=== PATIENT | female | born 1950 | race Caucasian/White ===

== ENCOUNTER 2016-10-13 09:52 | Outpatient (RCR) | payer MEDICARE, MEDICAID ==
[~2016-10-13 09:52] MED LIST: ACHD5005; AGM875T PO; ALBU17AE23 IH; ASP325TEC PO; ASPI-586 PO; ASPI-84; BENZ100C23 PO; BUDE10.2 IH; CALC-196 PO; CARV12.53 PO; CARV25TA PO; CETI10TA17 PO; CLD600T PO; CLOP75TA; CLOP75TA PO; CLOP75TA28 PO; CLOP75TA69 PO; COLE625T9 PO; CPR500T PO; CYCL10TA9 PO; DEXT1DRO7 OU; DIAZ2TAB2 PO; DOCU-143 PO; ENLP10T; FLUT16SP22; FLUT1AER IH; FURO20TA4; GABA-488 PO; GABA300T PO; GLPZ5TCR; GMFB600T; HCT25T PO; HYDR-2889 PO; HYDR-2997 PO; HYDR-34 PO; HYDR-3720; HYDR-3812 PO; INSU100I5; INSU100I5 SC; INSU100V5 SQ; LEGATRIN PM PO; METF-380 PO; METF1000 PO; METF500T8; METO-333; METR500T PO; MONT10TA21 PO; MTF500TCR; NAPR-243; NAPROXEN; NIA500ERT PO; OMG1KC PO; OXYC-12 PO; PRD20T PO; PREG50C; SERT100T8 PO; SIMV40TA2; TIOT18CA IH; TLT2T PO; UMEC62.5 IH; ZOLP10TA PO; welchol PO
[2016-10-13 10:12] LABS: BASOPHILS % (AUTO) 0 % (0-10); EOSINOPHILS # (AUTO) 0.2 10^3/uL (0.0-0.3); EOSINOPHILS % (AUTO) 2 % (0-10); LYMPHOCYTES # (AUTO) 1.5 X 10^3 (1.0-4.0); LYMPHOCYTES % (AUTO) 20 % (12-44); MEAN CORPUSCULAR HEMOGLOBIN 27 PG (25-34); MEAN CORPUSCULAR HGB CONC 31 G/DL (32-36); MEAN CORPUSCULAR VOLUME 86 FL (80-99); MEAN PLATELET VOLUME 9.3 FL (7.4-10.4); MONOCYTES # (AUTO) 0.7 X 10^3 (0.0-1.0); MONOCYTES % (AUTO) 10 % (0-12); NEUTROPHILS # (AUTO) 4.9 X 10^3 (1.8-7.8); NEUTROPHILS % (AUTO) 68 % (42-75); PLATELET COUNT 269 10^3/uL (130-400); RED BLOOD COUNT 3.82 10^6/uL (4.35-5.85); WHITE BLOOD COUNT 7.2 10^3/uL (4.3-11.0)
[2016-10-13 10:58] LABS: ALBUMIN 3.9 G/DL (3.2-4.5); BILIRUBIN,TOTAL 0.4 MG/DL (0.1-1.0); CALCIUM 9.5 MG/DL (8.5-10.1); CREATININE SERUM 1.13 MG/DL (0.60-1.30); POTASSIUM 4.8 MMOL/L (3.6-5.0); TOTAL PROTEIN 6.6 G/DL (6.4-8.2)
[2017-01-22] MEDS ORDERED: HYDR-3730 PO (14:14)
== END 2016-11-13 | disposition home or self-care (01) ==
LOC: ONC 09:52
PROVIDERS: ATTEND Internal Medicine Hematology & Oncology
DX: C50.111 Malignant neoplasm of central portion of right female breast (principal); J44.9 Chronic obstructive pulmonary disease, unspecified; I25.10 Atherosclerotic heart disease of native coronary artery without angina pectoris; I10 Essential (primary) hypertension; E11.9 Type 2 diabetes mellitus without complications; M17.0 Bilateral primary osteoarthritis of knee; Z87.891 Personal history of nicotine dependence; Z79.02 Long term (current) use of antithrombotics/antiplatelets; Z79.82 Long term (current) use of aspirin
CPT/HCPCS: 36415; 80053; 85025; 99213

== ENCOUNTER → 2016-11-11 | Outpatient (CLI) | payer MEDICARE, MEDICAID ==
[~2016-11-11] MED LIST changes: +ALBU0.63 IH; +ANAS1TAB7 PO; +AZIT250T5 PO; +CEFD300C3 PO; +HYDR-3730 PO; +ONDA4TAB8 PO
--- OUTSIDE RECORDS SUMMARY | 2016-11-11 08:03 | XMS REPORT | Continuity of Care Document ---
Author Author [facility] Organization [facility] Address Unknown Phone Unavailable Care Team Providers Care Ed Special Education Teacher Name Role Phone Provider, Ordering PCP Unavailable Source Comments Some departments are not documenting in the electronic medical record. If you do not see the information that you expected, contact Release of Information in the Health Information Management department at [phone] for further assistance in locating additional records.[facility] Active Allergies and Adverse Reactions Allergen Noted Date Severity Reactions Comments Iodine 09/02/2016 Medium SHORTNESS OF BREATH Pcn 09/02/2016 Medium EDEMA Current Medications Prescription Sig. Disp. Refills Start End Date Status Date [place]-3 Fatty Take 1 Cap by mouth twice Active Acids-Vitamin E (FISH daily. OIL) 1,000 mg cap metFORMIN (GLUCOPHAGE) Take 1,000 mg by mouth Active 1,000 mg tablet twice daily with meals. GABAPENTIN PO Take 600 mg by mouth Active three times daily. colesevelam(+) (WELCHOL) Take 1,875 mg by mouth Active 625 mg tablet twice daily. insulin detemir(+) Inject 20 Units under the Active (LEVEMIR) 100 unit/mL skin at bedtime daily. soln aspirin 81 mg chewable Chew 81 mg by mouth Active tablet daily. Take with food. anastrozole (ARIMIDEX) 1 Take 1 mg by mouth daily. Active mg tablet montelukast (SINGULAIR) Take 10 mg by mouth at Active 10 mg tablet bedtime daily. clopiDOGrel (PLAVIX) 75 Take 75 mg by mouth Active mg tablet daily. carvedilol (COREG) 12.5 Take 12.5 mg by mouth Active mg tablet twice daily. Take with food. hydroCHLOROthiazide Take 25 mg by mouth Active (HYDRODIURIL) 25 mg daily. tablet sertraline (ZOLOFT) 100 Take 100 mg by mouth Active mg tablet daily. benzonatate (TESSALON Take 100 mg by mouth Active PERLES) 100 mg capsule every 8 hours as needed for Cough. HYDROcodone/acetaminophen Take 1 Tab by mouth every Active (NORCO) 5-325 mg tablet 4 hours as needed for Pain tolterodine(+) (DETROL) 2 Take 2 mg by mouth twice Active mg tablet daily. fluticasone (FLONASE) 50 Apply to each nostril as Active mcg/actuation nasal spray directed daily as needed. Shake bottle gently before using. diazePAM (VALIUM) 2 mg Take 2 mg by mouth at Active tablet bedtime as needed for Anxiety. fluticasone-vilanterol Inhale 1 Puff by mouth Active 100-25 mcg/dose dsdv into the lungs daily. albuterol 0.083% Inhale 1 Vial solution by Active (PROVENTIL; VENTOLIN) 2.5 nebulizer as directed mg /3 mL (0.083 %) every 4 hours as needed nebulizer solution for Wheezing or Shortness of Breath. lisinopril (PRINIVIL; Take 10 mg by mouth Active ZESTRIL) 10 mg tablet daily. Active Problems Problem Noted Date Renal mass 09/01/2016 Overview: -- 09/02/16: ADMISSIONS SUPERVISOR visit. Very complex medical hx w/ new diagnosis of breast cancer. RENAL nephrotomy score 8a (moderate complexity). Will schedule for percutaneous bx. Imaging Hx as follows: -- 07/30/16: 2.5 x 2.6 x 2.1 cm solid enhancing mass in the left kidney, which is highly concerning for primary renal neoplasm -- 08/14/16: 2.8 cm hypervascular left renal mass highly suggestive of renal cell carcinoma. Indeterminate 1.5 cm left adrenal nodule L ast Assessment & Plan: The patient has a LEFT renal mass suspicious for renal cancer. I reviewed the options of observation, partial nephrectomy, radical nephrectomy, cryoablation, radiofrequency ablation in detail. I explained the relative merits, advantages, and disadvantages of each option. The patient would like to proceed with renal bx. - Will follow up w/ pt following IR bx to review options Most Recent Encounters Date Type Specialty Providers Description 10/22/2016 Orders Only Urology Ez Farley MD Renal cell cancer, left (HCC) (Primary Dx) 10/22/2016 Orders Only Urology Ez Farley MD 10/22/2016 Orders Only Urology Raina Muro MD Kidney cancer, primary, with metastasis from kidney to other site, unspecified laterality (HCC) (Primary Dx) 09/25/2016 [facility] Radiology Ez Farley MD Encounter Yue Glover RN Lemons, Steven, MD 09/25/2016 Ancillary Urology Ez Farley MD Renal mass (Primary Dx) Orders 09/10/2016 Orders Only Radiology Juana Batista RN Renal mass (Primary Dx) 09/10/2016 Orders Only Radiology Juana Batista RN 09/02/2016 Office Visit Urology Ez Farley MD Renal mass (Primary Dx) 09/01/2016 Ancillary Radiology Outpatient, Radiologist Diagnosis unknown Orders (Primary Dx) 08/26/2016 Telephone Oncology Ez Farley MD Error 08/25/2016 Telephone Oncology Ez Farley MD Navigation Assessment 08/14/2016 Hospital Radiology Encounter Social History Tobacco Use Types Packs/Day Years Used Date Former Smoker Smokeless Tobacco: Never Used Alcohol Use Drinks/Week oz/Week Comments No Last Filed Vital Signs Vital Sign Reading Time Taken Blood Pressure 141/95 09/25/2016 2:15 PM GAS ANALYST Pulse 74 09/25/2016 2:15 PM GAS ANALYST Temperature 36.7 C (98.1 F) 09/25/2016 8:37 AM GAS ANALYST Respiratory Rate 16 09/02/2016 9:31 AM CDT Height 1.524 m (5') 09/02/2016 9:31 AM CDT Weight 99.156 kg (218 lb 9.6 oz) 09/02/2016 9:31 AM CDT Body Mass Index 42.69 09/02/2016 9:31 AM CDT Oxygen Saturation 94% 09/25/2016 2:15 PM GAS ANALYST Plan of Care Date Type Specialty Providers Description 11/18/2016 Appointment Radiology Ez Farley MD [address] [facility] [place] [address] [place] [address] [phone] (Fax) 11/18/2016 Appointment Urology Ez Farley MD [address] [facility] [place] [address] [place] [address] [phone] (Fax) 11/18/2016 Appointment Anesthesiology Health Maintenance Due Date Last Done Comments Hepatitis C Screening 1950 Physical (Comprehensive) 1955 Exam Pertussis Vaccine 1959 Tetanus Vaccine 1965 Breast Cancer Screening 1988 Colorectal Cancer 1998 Screening Shingles Vaccine 2008 Osteoporosis Screening 2013 Prevnar/Pneumovax (#1) 2013 Influenza Vaccine 07/10/2016 Results from Last 3 Months SURGICAL PATHOLOGY (09/25/2016 10:47 AM) Component Value Range PATHOLOGY REPORT [facility] [email or web address] Brisa Mckeon MD, PhD, Director of Anatomic Pathology Department of Pathology and Laboratory Medicine [address] [place] [id number] Surgical Pathology Office: [phone] SURGICAL PATHOLOGY REPORT NAME: MURIEL SALGADO SURG PATH #: [id number] MR #: [id number] SPECIMEN CLASS: SR BILLING #: [id number] ALT ID #: LOCATION: DATE OF PROCEDURE: 09/25/2016 AGE: 65 SEX: F DATE RECEIVED: 09/25/2016 : 1950 TIME RECEIVED: 10:47 PHYSICIAN: EZ FARLEY DATE OF REPORT: 09/26/2016 COPY TO: DATE OF PRINTIN09/26/2016 ################################################## ###################### Final Diagnosis: A. 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 See comment. Comment: Pursuant to the Internal Combustion Engine Subassembler Program at the [facility] Pathology Department, selected slides from this case have been concurrently reviewed by the following pathologist: Dr. Yi Ochoa who agrees with the final diagnosis. Attestation: By this signature, I attest that I have personally formulated the final interpretation expressed in this report and that the above diagnosis is based upon my examination of the slides and/or other material indicated in this report. +++Electronically Signed Out By+++ [facility]09/25/2016 Interpreted by: Suzette Lu M.D. Melchor Sauer MD Resident 09/26/2016 ################################################## ###################### Material Received: A: Kidney Mass no protocol History: 65-year-old female with a clinical history of renal mass Gross Description: A. Received in formalin labeled "left kidney mass" is a 1.3 x 0.2 x 0.1 cm aggregate of cores of castellanos-red tissue. The specimen is entirely submitted in cassette A1. (jrz) [facility]09/25/2016 Melchor Sauer MD Resident CT GUIDE NEEDLE PLACEMENT (09/25/2016 10:22 AM) Impressions 1. Successful CT-guided biopsy of left renal lesion. Approved by Homero Branch M.D. on 09/25/2016 1:52 PM By my electronic signature, I attest that I have personally reviewed the images for this examination and formulated the interpretations and opinions expressed in this report Finalized by Artie Horton M.D. on 09/25/2016 6:34 PM. Dictated by Homero Branch M.D. on 09/25/2016 1:[address] GUIDED BIOPSY OF LEFT RENAL LESION CLINICAL HISTORY:Newly diagnosed breast cancer, left renal lesion seen on CT CNA INSTRUCTOR:Homero Branch M.D. (fellow) and Shahzad Horton M.D. MEDICATIONS:2% lidocaine: 5 mL;Versed: 2 mg IV; Fentanyl: 100 mcg IV TECHNIQUE/FINDINGS: I, Shahzad Horton M.D, the attending radiologist, was present for the critica l and muñoz portions of the procedure with a midlevel, resident, and/or fellow participating.Overlapping portions were non muñoz and I was immediately available.I interpret the critical and muñoz portion of this procedure to have been needle access. A brief history and physical was obtained and appropriate imaging was reviewed. The patient was provided an explanation of the procedure including risks and benefits. Informed written consent was then obtained. The patient was placed in prone position on the CT table. Limited scans through the abdomen were done to identify the left renal lesion. The patient's skin was marked with ink at the appropriate entry site. The entry site was then prepped and draped in the usual sterile fashion. Lidocaine was then injected in the subcutaneous tissues at this site. Position of the lesion was confirmed by CT measurements. A 10 cm 17 gauge Temno introducer needle was then advanced into the left renal lesion and placement was confirmed by CT. 3 separate core biopsies were then obtained using an 18-gauge Temno needle and submitted in formalin for surgical pathology. A small amount of gelfoam slurry was injected for hemostasis prior to removal of the introducer needle.Limited post procedure CT scan demonstrates no evidence of post biopsy complication.The patient tolerated the procedure well and left the department in stable condition. Procedure Note Interface, Radiant Results - [facility] Sep 25, 2016 6:[address] GUIDED BIOPSY OF LEFT RENAL LESION CLINICAL HISTORY: Newly diagnosed breast cancer, left renal lesion seen on CT CNA INSTRUCTOR: Homero Branch M.D. (fellow) and Shahzad Horton M.D. MEDICATIONS: 2% lidocaine: 5 mL; Versed: 2 mg IV; Fentanyl: 100 mcg IV TECHNIQUE/FINDINGS: IShahzad M.D, the attending radiologist, was present for the critical and muñoz portions of the procedure with a midlevel, resident, and/or fellow participating. Overlapping portions were non muñoz and I was immediately available. I interpret the critical and muñoz portion of this procedure to have been needle access. A brief history and physical was obtained and appropriate imaging was reviewed. The patient was provided an explanation of the procedure including risks and benefits. Informed written consent was then obtained. The patient was placed in prone position on the CT table. Limited scans through the abdomen were done to identify the left renal lesion. The patient's skin was marked with ink at the appropriate entry site. The entry site was then prepped and draped in the usual sterile fashion. Lidocaine was then injected in the subcutaneous tissues at this site. Position of the lesion was confirmed by CT measurements. A 10 cm 17 gauge Temno introducer needle was then advanced into the left renal lesion and placement was confirmed by CT. 3 separate core biopsies were then obtained using an 18-gauge Temno needle and submitted in formalin for surgical pathology. A small amount of gelfoam slurry was injected for hemostasis prior to removal of the introducer needle. Limited post procedure CT scan demonstrates no evidence of post biopsy complication. The patient tolerated the procedure well and left the department in stable condition. IMPRESSION 1. Successful CT-guided biopsy of left renal lesion. Approved by Homero Branch M.D. on 09/25/2016 1:52 PM By my electronic signature, I attest that I have personally reviewed the images for this examination and formulated the interpretations and opinions expressed in this report Finalized by Artie Horton M.D. on 09/25/2016 6:34 PM. Dictated by Homero Branch M.D. on 09/25/2016 1:50 PM. POC GLUCOSE (09/25/2016 8:40 AM) Component Value Range Glucose, POC 95 70-100 MG/DL CT ABD/PEL EXTERNAL IMAGING (08/14/2016) Narrative This order has been auto finalized and does not contain a result.
--- NOTE | 2016-11-11 13:28 | Diagnostic Imaging Report ---
Right breast diagnostic mammogram. INDICATION: Breast cancer. CAD is utilized. COMPARISON: 07/08/2016. FINDINGS: There is a central right breast nodule, a biopsy-proven breast cancer which appears to be slightly smaller on the current exam. Some of the borders are obscured by the adjacent tissues, and ultrasound might be more accurate in measurement of this nodule. It is at 1.3 cm in maximum dimension anterior/ posteriorly, 0.8 cm in transverse dimension, and is poorly defined on the craniocaudal extent. This compares to 1.4 x 1.0-cm at previous study. There is a biopsy clip about 1 cm lateral to the nodule. IMPRESSION: Biopsy-proven breast cancer in the central slightly lateral aspect of the right breast appears minimally smaller compared to 07/08/2016. Ultrasound evaluation is pending. ACR BI-RADS Category 0: Incomplete. (Needs additional imaging evaluation). Result letter will be mailed to the patient. Note: At least 10% of breast cancer is not imaged by mammography. Dictated by: Dictated on workstation # [id number]
--- NOTE | 2016-11-11 13:31 | Diagnostic Imaging Report ---
EXAMINATION: Right breast ultrasound. INDICATION: Right breast cancer. FINDINGS: The previously seen mass at 10 o'clock 6 cm from the nipple is now difficult to delineate. A corresponding area, felt to be the nodule, measures 0.9 x 0.5 x 0.8 cm. This compares to prior measurements of 1.3 x 0.6 x 0.8 cm. No other nodule is identified in the 4 quadrants or retroareolar region. IMPRESSION: The previously seen nodule is harder to delineate on this exam with slightly smaller measurements obtained. BI-RADS 6, known breast cancer. Dictated by: Dictated on workstation # [id number]
== END ==
LOC: RAD 08:00
PROVIDERS: ATTEND Internal Medicine Hematology & Oncology
DX: C50.111 Malignant neoplasm of central portion of right female breast (principal)
CPT/HCPCS: 76641

== ENCOUNTER → 2016-12-15 | Outpatient (CLI) | payer MEDICARE, MEDICAID ==
--- OUTSIDE RECORDS SUMMARY | 2016-12-15 12:12 | XMS REPORT | Continuity of Care Document ---
Author Author [facility] Address Unknown Phone Unavailable Care Team Providers Care Medical Assistant Name Role Phone MilnerDayna saravia PCP [phone] Source Comments Some departments are not documenting in the electronic medical record. If you do not see the information that you expected, contact Release of Information in the Health Information Management department at [phone] for further assistance in locating additional records.[facility] Active Allergies and Adverse Reactions Allergen Noted Date Severity Reactions Comments Iodine 09/02/2016 Medium SHORTNESS OF BREATH Pcn 09/02/2016 Medium EDEMA Current Medications Prescription Sig. Disp. Refills Start End Date Status Date [place]-3 Fatty Take 1 Cap by mouth twice [...] mouth Active ZESTRIL) 10 mg tablet daily. oxyCODONE (ROXICODONE, Take 1-2 Tabs by mouth 30 Tab 0 12/09/19 Active OXY-IR) 5 mg tablet every 4 hours as needed 17 for Pain ondansetron (ZOFRAN) 4 mg Take 1-2 Tabs by mouth 20 Tab 1 12/09/19 Active tablet every 6 hours as needed 17 for Nausea or Vomiting. Active Problems Problem Noted Date Renal mass 09/01/2016 Overview: -- 09/02/16: [employer] visit. Very complex medical hx w/ new [...] carcinoma. Indeterminate 1.5 cm left adrenal nodule Pt was scheduled for IR cryoablation but due to misunderstanding this did not occur. PATIENCE shows mass is unchanged L ast Assessment & Plan: I reviewed the options and she would like to continue with cryoablation. We will coordinate with IR. Most Recent Encounters Date Type Specialty Providers Description 12/09/2016 [facility] Radiology Ez Fernandez MD Renal mass Encounter Bertin Curry RN Collins, Zachary S, MD 12/09/2016 [facility] Ez Fernandez MD Other specified disorders Encounter of kidney and ureter 12/09/2016 Ancillary Urology Ez Fernandez MD Renal cell cancer, left Orders (Primary Dx) 12/05/2016 Telephone Radiology Basia Mcgee RN 11/18/2016 Office Visit Urology Ez Fernandez MD Renal mass (Primary Dx) 11/18/2016 [facility] Radiology Ez Fernandez MD Encounter 11/18/2016 [facility] Radiology Ez Fernandez MD Canceled (Error) Encounter 11/18/2016 Telephone Radiology Basia Mcgee RN 11/18/2016 Orders Only UrologEz Gary MD Renal mass (Primary Dx ) 10/22/2016 Orders Only Urology Ez Fernandez MD Renal cell cancer, left (HCC) (Primary Dx) 10/22/2016 Orders Only Urology Ez Fernandez MD 10/22/2016 Orders Only Urology Raina Muro MD Kidney cancer, primary, with metastasis from kidney to other site, unspecified laterality (HCC) (Primary Dx) 09/25/2016 [facility] Radiology Ez Fernandez MD Encounter Yue Glover RN Lemons, Steven, MD 09/25/2016 Ancillary Urology Ez Fernandez MD Renal mass (Primary Dx) Orders Social History Tobacco Use Types Packs/Day Years Used Date Former Smoker Smokeless Tobacco: Never Used Alcohol Use Drinks/Week oz/Week Comments No Last Filed Vital Signs Vital Sign Reading Time Taken Blood Pressure 146/58 12/09/2016 1:45 PM [employer] Pulse 74 12/09/2016 1:45 PM [employer]BER Temperature 36.9 C (98.4 F) 12/09/2016 9:08 AM [employer] MEMBER Respiratory Rate 16 09/02/2016 9:31 AM CDT Height 1.524 m (5') 11/18/2016 12:00 PM [employer]BER Weight 102.604 kg (226 lb 3.2 11/18/2016 12:00 PM [employer] TEAM MEMBER oz) Body Mass Index 44.18 11/18/2016 12:00 PM [employer]BER Oxygen Saturation 96% 12/09/2016 1:45 PM [employer]AM MEMBER Plan of Care Health Maintenance Due Date Last Done Comments Hepatitis C Screening 1950 Physical (Comprehensive) 1955 Exam Pertussis Vaccine 1959 Tetanus Vaccine 1965 Breast Cancer Screening 1988 Colorectal Cancer 1998 Screening Shingles Vaccine 2008 Osteoporosis Screening 2013 Prevnar/Pneumovax (#1) 2013 Influenza Vaccine 07/10/2016 Results from Last [address] GUIDE FOR RF ABLATION PERC (12/09/2016 12:24 PM) Impressions Technically successful Cryoablation of the left renal tumor as described above. Plan: Follow up cross-sectional imaging will be performed at 1 month, 3 months, 6 months, and 1 year for evaluation of treatment response and local control. I, Mukund Meraz M.D, the attending radiologist, was present for the critical and muñoz portions of the procedure with a midlevel, resident, and/or fellow participating.Overlapping portions were non muñoz and I was immediately available.I interpret the critical and muñoz portion of this procedure to have been needle access. @TT Approved by Sara Lacey M.D. on 12/10/2016 9:50 AM By my electronic signature, I attest that I have personally reviewed the images for this examination and formulated the interpretations and opinions expressed in this report Finalized by Mukund Meraz M.D. on 12/10/2016 10:24 AM. Dictated by Sara Lacey M.D. on 12/10/2016 9:45 AM. Narrative PROCEDURE: CRYOABLATION OF SOLITARY LEFT RENAL TUMOR Procedure date: 12/09/2016 History: Renal cell cancer of left kidney Operators: Sara Lacey MD; Mukund Meraz MD Medications: Versed 3 mg IV Fentanyl 150 mcg IV Procedure and Findings: The risks, benefits, and alternatives to the procedure and sedation were explained to the patient, and written informed consent obtained. The lesion in the left kidney was localized on the initial non- contrast CT and the dermatotomy entrance site marked on the skin. Utilizing usual sterile technique, the site was prepped and draped. A subcutaneous needle was positioned over the site of the lesion in the left kidney and the positioning was confirmed using CT. Following cryoablation needle testing, a single 15 cm long, cryoablation needle with 5 cm treatment zone, were placed into the lesion and optimally positioned under CT guidance.The needle placements were confirmed under CT and two 10 minute cryotherapy freezes were performed interspace by a 5 minutes of active thaw. A mid therapy CT of the treatment area was performed toconfirm initial needle placement and satisfactory treatment zone.Recorded temperature measurements were deemed technically satisfactory and consistent with successful cryoablation.The cryotherapy needles were removed after the measured temperature was above [address] demonstrated low attenuation changes completely surrounding the renal tumor, with at least a 5 mm excess treatment margin involving the superior, lateral and medial aspects of the lesion. These findings are compatible with technically successful cryoablation. There is no evidence of post procedure complication was noted. The patient left the department in stable condition. Procedure Note Interface, Radiant Results - ThuDec 10, 2016 1:57 PM [employer] MEMBER PROCEDURE: CRYOABLATION OF SOLITARY LEFT RENAL TUMOR Procedure date: 12/09/2016 History: Renal cell cancer of left kidney Operators: Sara Lacey MD; Mukund Meraz MD Medications: Versed 3 mg IV Fentanyl 150 mcg IV Procedure and Findings: The risks, benefits, and alternatives to the procedure and sedation were explained to the patient, and written informed consent obtained. The lesion in the left kidney was localized on the initial non- contrast CT and the dermatotomy entrance site marked on the skin. Utilizing usual sterile technique, the site was prepped and draped. A subcutaneous needle was positioned over the site of the lesion in the left kidney and the positioning was confirmed using CT. Following cryoablation needle testing, a single 15 cm long, cryoablation needle with 5 cm treatment zone, were placed into the lesion and optimally positioned under CT guidance. The needle placements were confirmed under CT and two 10 minute cryotherapy freezes were performed interspace by a 5 minutes of active thaw. A mid therapy CT of the treatment area was performed to confirm initial needle placement and satisfactory treatment zone. Recorded temperature measurements were deemed technically satisfactory and consistent with successful cryoablation. The cryotherapy needles were removed after the measured temperature was above [address] procedure [address] demonstrated low attenuation changes completely surrounding the renal tumor, with at least a 5 mm excess treatment margin involving the superior, lateral and medial aspects of the lesion. These findings are compatible with technically successful cryoablation. There is no evidence of post procedure complication was noted. The patient left the department in stable condition. IMPRESSION Technically successful Cryoablation of the left renal tumor as described above. Plan: Follow up cross-sectional imaging will be performed at 1 month, 3 months, 6 months, and 1 year for evaluation of treatment response and local control. I, Mukund Meraz M.D, the attending radiologist, was present for the critical and muñoz portions of the procedure with a midlevel, resident, and/or fellow participating. Overlapping portions were non muñoz and I was immediately available. I interpret the critical and muñoz portion of this procedure to have been needle access. @TT Approved by Sara Lacey M.D. on 12/10/2016 9:50 AM By my electronic signature, I attest that I have personally reviewed the images for this examination and formulated the interpretations and opinions expressed in this report Finalized by Mukund Meraz M.D. on 12/10/2016 10:24 AM. Dictated by Sara Lacey M.D. on 12/10/2016 9:45 AM. CBC AND DIFF (12/09/2016 12:07 PM)Only the most recent of 2 results within the time period is included. Component Value Range White Blood Cells 8.9 4.5-11.0 K/UL RBC 3.28 (L) 4.0-5.0 M/UL Hemoglobin 8.8 (L) 12.0-15.0 GM/DL Hematocrit 28.2 (L) 36-45 % MCV 86.1 80-100 FL MCH 26.9 26-34 PG MCHC 31.2 (L) 32.0-36.0 G/DL RDW 15.6 (H) 11-15 % Platelet Count 212 150-400 K/UL MPV 8.1 7-11 FL Neutrophils 77 41-77 % Lymphocytes 14 (L) 24-44 % Monocytes 8 4-12 % Eosinophils 1 0-5 % Basophils 0 0-2 % Absolute Neutrophil Count 6.80 1.8-7.0 K/UL Absolute Lymph Count 1.30 1.0-4.8 K/UL Absolute Monocyte Count 0.70 0-0.80 K/UL Absolute Eosinophil Count 0.10 0-0.45 K/UL Absolute Basophil Count 0.00 0-0.20 K/UL Specimen Blood POC GLUCOSE (12/09/2016 9:42 AM)Only the most recent of 2 results within the time period is included. Component Value Range Glucose, POC 163 (H) 70-100 MG/DL PROTIME INR (PT) (12/09/2016 8:07 AM) Component Value Range INR 1.1 0.8-1.2 Specimen Blood COMPREHENSIVE METABOLIC PANEL (12/09/2016 8:07 AM) Component Value Range Sodium 142 137-147 MMOL/L Potassium 4.4 3.5-5.1 MMOL/L Chloride 107 98-110 MMOL/L Glucose 131 (H) 70-100 MG/DL Blood Urea Nitrogen 29 (H) 7-25 MG/DL Creatinine 1.24 (H) 0.4-1.00 MG/DL Calcium 9.6 8.5-10.6 MG/DL Total Protein 7.0 6.0-8.0 G/DL Total Bilirubin 0.3 0.3-1.2 MG/DL Albumin 3.8 3.5-5.0 G/DL Alk Phosphatase 61 25-110 U/L AST (SGOT) 9 7-40 U/L CO2 31 (H) 21-30 MMOL/L ALT (SGPT) 8 7-56 U/L Anion Gap 4 3-12 eGFR Non 43 (L)Comment: >60 mL/min The eGFR is not validated for use in drug dosing adjustments. Continue to use estimated creatinine clearance per dosing reference text. Please contact the Clinical Pharmacist for questions. eGFR 52 (L)Comment: >60 mL/min The eGFR is not validated for use in drug dosing adjustments. Continue to use estimated creatinine clearance per dosing reference text. Please contact the Clinical Pharmacist for questions. Specimen Blood US RENAL BLADDER LTD (11/18/2016 11:00 AM) Impressions 1. Isoechoic left interpolar mass most consistent with biopsy-proven clear cell carcinoma. No additional left renal masses identified. 2. Mild bilateral renal atrophy, right greater than left. Approved by Ayaan Howard M.D. on 11/18/2016 11:44 AM By my electronic signature, I attest that I have personally reviewed the images for this examination and formulated the interpretations and opinions expressed in this report Finalized by Gabo Mendoza M.D. on 11/18/2016 7:02 PM. Dictated by Ayaan Howard M.D. on 11/18/2016 11:33 AM. Narrative Renal Ultrasound Clinical Indication: renal mass, clear cell carcinoma Technique: Multiple real-time grayscale sonographic images were obtained through the urinary system. Findings: Comparison: CT abdomen/pelvis 08/14/2016 and 09/25/2016 The right kidney measures 8.4 x 5.0 cm. No hydronephrosis or discrete right renal mass visualized. The left kidney measures 9.9 x 5.4 cm. There is an isoechoic interpolar left renal mass measuring 2.6 x 2.6 x 3.7 cm. No discrete associated abnormal blood flow identified. No additional renal masses or hydronephrosis. The urinary bladder appears unremarkable. Procedure Note Interface, Radiant Results - Tue Nov 18, 2016 7:05 PM [employer] TE[employer] MEMBER Renal Ultrasound Clinical Indication: renal mass, clear cell carcinoma Technique: Multiple real-time grayscale sonographic images were obtained through the urinary system. Findings: Comparison: CT abdomen/pelvis 08/14/2016 and 09/25/2016 The right kidney measures 8.4 x 5.0 cm. No hydronephrosis or discrete right renal mass visualized. The left kidney measures 9.9 x 5.4 cm. There is an isoechoic interpolar left renal mass measuring 2.6 x 2.6 x 3.7 cm. No discrete associated abnormal blood flow identified. No additional renal masses or hydronephrosis. The urinary bladder appears unremarkable. IMPRESSION 1. Isoechoic left interpolar mass most consistent with biopsy-proven clear cell carcinoma. No additional left renal masses identified. 2. Mild bilateral renal atrophy, right greater than left. Approved by Ayaan Howard M.D. on 11/18/2016 11:44 AM By my electronic signature, I attest that I have personally reviewed the images for this examination and formulated the interpretations and opinions expressed in this report Finalized by Gabo Mendoza M.D. on 11/18/2016 7:02 PM. Dictated by Ayaan Howard M.D. on 11/18/2016 11:33 AM. SURGICAL PATHOLOGY (09/25/2016 10:47 AM) Component Value Range PATHOLOGY REPORT [facility] [email or web address] Brisa Mckeon MD, PhD, Director of Anatomic Pathology Department of Pathology and Laboratory Medicine [address] [place] [address] Surgical Pathology Office: [phone] SURGICAL PATHOLOGY REPORT NAME: MURIEL SALGADO SURG PATH #: [id number] MR #: [id number] SPECIMEN CLASS: SR BILLING #: [id number] ALT ID #: LOCATION: DATE OF PROCEDURE: 09/25/2016 AGE: 65 SEX: F DATE RECEIVED: 09/25/2016 : 1950 TIME RECEIVED: 10:47 PHYSICIAN: EZ FERNANDEZ DATE OF REPORT: 09/26/2016 COPY TO: DATE OF PRINTIN09/26/2016 ################################################## ###################### Final Diagnosis: A. 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 See comment. Comment: Pursuant to the [employer] Operator Program at the [facility] Pathology Department, selected slides from this [...] in this report. +++Electronically Signed Out By+++ johnathanw/09/25/2016 Interpreted by: Tamir Lopez MD Resident 09/26/2016 ################################################## ###################### Material Received: A: Kidney Mass no protocol History: 65-year-old female with a clinical history of renal mass Gross Description: A. Received in formalin labeled "left kidney mass" is a 1.3 x 0.2 x 0.1 cm aggregate of cores of castellanos-red tissue. The specimen is entirely submitted in cassette A1. (jrz) ksw/09/25/2016 Melchor Sauer MD Resident CT GUIDE NEEDLE [...] cancer, left renal lesion seen on CT FIRER LOCOMOTIVE:Homero Branch M.D. (fellow) and Shahzad Horton M.D. MEDICATIONS:2% lidocaine: 5 mL;Versed: 2 mg IV; Fentanyl: 100 mcg IV TECHNIQUE/FINDINGS: IShahzad M.D, the attending radiologist, was present for the critica l and muñoz portions of the procedure with a midlevel, resident, and/or fellow participating.Overlapping portions were non muñoz and I was immediately available.I interpret the critical and muñzo portion of this procedure to have been [...] condition. Procedure Note Interface, Radiant Results - Alexia Sep 25, 2016 6:37 PM FOOD SERVICE TEAM MEMBER CT GUIDED BIOPSY OF LEFT RENAL LESION CLINICAL HISTORY: Newly diagnosed breast cancer, left renal lesion seen on CT FIRER LOCOMOTIVE: Homero Branch M.D. (fellow) and Shahzad Horton M.D. MEDICATIONS: 2% lidocaine: 5 mL; Versed: 2 mg IV; Fentanyl: 100 mcg IV TECHNIQUE/FINDINGS: I, Shahzad Horton M.D, the attending radiologist, was present for the critical and muñoz portions of the procedure with a midlevel, resident, and/or fellow participating. Overlapping portions were non muñoz and I was immediately available. I interpret the critical and muoñz portion of this procedure to have been [...]
[2016-12-15 13:11] LABS: CHOLESTEROL 136 MG/DL (< 200); DIRECT LDL 77 MG/DL (1-129); TRIGLYCERIDES 140 MG/DL (<150); VLDL CHOLESTEROL 28 MG/DL (5-40)
== END ==
LOC: LAB 12:07
PROVIDERS: ATTEND Internal Medicine Cardiovascular Disease
DX: E78.2 Mixed hyperlipidemia (principal)
CPT/HCPCS: 36415; 80061

== ENCOUNTER 2017-01-19 10:03 | Outpatient (CLI) | payer MEDICARE, MEDICAID ==
[~2017-01-19] VITALS: Ht 152.4 cm; Wt 103.4 kg
[~2017-01-19 10:03] MED LIST changes: -ALBU0.63 IH; -ANAS1TAB7 PO; -AZIT250T5 PO; -CEFD300C3 PO; -HYDR-3730 PO; -ONDA4TAB8 PO
--- OUTSIDE RECORDS SUMMARY | 2017-01-19 10:09 | XMS REPORT | Continuity of Care Document ---
Author Author [facility] Organization [facility] Address Unknown Phone Unavailable Care Team Providers Care Philatelic Consultant Name Role Phone MilnerDayna saravia PCP [phone] Source Comments Some departments are not documenting in the electronic medical record. If you do not see the information that you expected, contact Release of Information in the Health Information Management department at [phone] for further assistance in locating additional records.[facility] Active Allergies and Adverse Reactions Allergen Noted Date Severity Reactions Comments Iodine 09/02/2016 Medium SHORTNESS OF BREATH Iodine allergy in seafood, not in contrast dye Pcn 09/02/2016 Medium EDEMA Current Medications Prescription Sig. Disp. Refills Start End Date Status Date [place]-3 Fatty Take 1 Cap by mouth twice [...] or Shortness of Breath. lisinopril (PRINIVIL; Take 20 mg by mouth Active ZESTRIL) 10 mg tablet daily. oxyCODONE (ROXICODONE, Take 1-2 Tabs by mouth 30 Tab 0 12/09/19 Active OXY-IR) 5 mg tablet every 4 hours as needed 17 for Pain ondansetron (ZOFRAN) 4 mg Take 1-2 Tabs by mouth 20 Tab 1 12/09/19 Active tablet every 6 hours as needed 17 for Nausea or Vomiting. diphenhydrAMINE Take 2 Tabs by mouth once 2 Tab 0 01/14/20 01/14/20 (BENADRYL) 25 mg tablet for 1 dose. Take 1 hours 17 17 before appointment time. 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 Very complex medical hx w/ new [...] carcinoma. Indeterminate 1.5 cm left adrenal nodule 12/09/16 - IR-guided ablation of clear cell RCC FG2 01/13/17 - CT Ab/Pel with MARJORIE L ast Assessment & Plan: 66yF with hx of 2.8cm L clear cell RCC s/p IR-guided cryoablation on 12/09/16 who has done well without any complications. CT Ab/Pel today with MARJORIE. - RTC [address] Ab/Pel - Will need CXR @ 1 year from ablation Most Recent Encounters Date Type Specialty Providers Description 01/13/2017 Office Visit UrologLissett Gary MD Renal mass (Primary Dx) 01/13/2017 [facility] Radiology Lissett Farley MD Arrived Encounter 01/13/2017 Ancillary UrologRaina Sainz MD Kidney cancer, primary, Orders with metastasis from kidney to other site, unspecified laterality (HCC) (Primary Dx) 01/09/2017 [facility] Radiology Lissett Farley MD Canceled (PATIENT Encounter RESCHEDULED) 01/09/2017 Screening Form 01/05/2017 Telephone UrologLissett Gary MD Allergic reaction 01/02/2017 Orders Only Lissett Weeks MD Renal mass (Primary Dx ) 12/09/2016 [facility] Radiology Lissett Farley MD Renal mass Encounter Bertin Curry RN Collins, Zachary S, MD 12/09/2016 [facility] Lissett Farley MD Other specified disorders Encounter of kidney and ureter 12/09/2016 Ancillary Urology Lissett Farley MD Renal cell cancer, left Orders (Primary Dx) 12/05/2016 Telephone Radiology Basia Mcgee RN 11/18/2016 Office Visit Lissett Weeks MD Renal mass (Primary Dx) 11/18/2016 [facility] Radiology Lissett Farley MD Encounter 11/18/2016 [facility] Radiology Lissett Farley MD Canceled (Error) Encounter 11/18/2016 Telephone Radiology Basia Mcgee RN 11/18/2016 Orders Only Lissett Weeks MD Renal mass (Primary Dx ) 10/22/2016 Orders Only Lissett Weeks MD Renal cell cancer, left (HCC) (Primary Dx) 10/22/2016 Orders Only Urology Lissett Farley MD 10/22/2016 Orders Only Urology aRina Muro MD Kidney cancer, primary, with metastasis from kidney to other site, unspecified laterality (HCC) (Primary Dx) Social History Tobacco Use Types Packs/Day Years Used Date Former Smoker Smokeless Tobacco: Never Used Alcohol Use Drinks/Week oz/Week Comments No Last Filed Vital Signs Vital Sign Reading Time Taken Blood Pressure 126/86 01/13/2017 1:01 PM CORRESPONDENCE TRANSCRIBER Pulse 89 01/13/2017 1:01 PM CORRESPONDENCE TRANSCRIBER Temperature 36.9 C (98.4 F) 12/09/2016 9:08 AM CORRESPONDENCE TRANSCRIBER Respiratory Rate 16 09/02/2016 9:31 AM CDT Height 1.524 m (5') 01/13/2017 1:01 PM CORRESPONDENCE TRANSCRIBER Weight 100.699 kg (222 lb) 01/13/2017 1:01 PM CORRESPONDENCE TRANSCRIBER Body Mass Index 43.36 01/13/2017 1:01 PM CORRESPONDENCE TRANSCRIBER Oxygen Saturation 93% 01/13/2017 1:01 PM CORRESPONDENCE TRANSCRIBER Plan of Care Date Type Specialty Providers Description 07/14/2017 Appointment Radiology Lissett Farley MD [address] [place] [address] [phone] (Fax) 07/14/2017 Appointment Urology Lissett Farley MD [address] [facility] [address] [place] [address] [phone] (Fax) Health Maintenance Due Date Last Done Comments Hepatitis C Screening 1950 Physical (Comprehensive) 1955 Exam Pertussis Vaccine 1959 Tetanus Vaccine 1965 Breast Cancer Screening 1988 Colorectal Cancer 1998 Screening Shingles Vaccine 2008 Osteoporosis Screening 2013 Prevnar/Pneumovax (#1) 2013 Influenza Vaccine 07/10/2017 Results from Last [address] ABD WO/W PELVIS W (01/13/2017 11:07 AM) Impressions 1.Cryoablation of small primary left renal carcinoma without residual/ recurrent enhancing mass. 2. No evidence of abdominal/pelvic metastatic disease. 3.Stable small omental cyst. Finalized by Kishore Aceves M.D. on 01/13/2017 12:48 PM. Dictated by Kishore Aceves M.D. on 01/13/2017 12:[address] abdomen and pelvis Indication:66-year-old lady with renal carcinoma for restaging, clear cell renal carcinoma grade 2, status post cryoablation 12/09/2016 Comparison studies:Outside noncontrast CT abdomen and pelvis August 14, 2016 , outside CT chest of July 30, 2016. Technique: Dynamic IV contrast-enhanced images were obtained through the abdomen and pelvis. Delayed scans were done through the abdomen and pelvis. Oral contrast was given. Findings: Heart size is within normal limits.Calcification of the mitral annulus is noted.The lung bases are clear. 1. Liver and spleen:Normal size without focal lesions apart from a small simple cyst adjacent to the gallbladder fossa.Surgical clips are noted in the gallbladder fossa.There is no bile duct dilatation. 2. Adrenal glands and kidneys:No adrenal mass is identified.Mild low density nodularity of the left adrenal gland is again noted without enhancing mass.The right kidney is unremarkable apart from a few areas of mild cortical scarring and small junctional defect in the upper pole medially. There has been interval treatment of enhancing mass in the lateral aspect of the left kidney with development of somewhat ill-defined hypodense mass larger than the original lesion.The post ablation mass measures 30 Hounsfield units on precontrast scans and in all phases of contrast administration.No residual/recurrent enhancing mass is seen.The low density lesion measures about 3.6 cm AP x 3.0 cm transverse x 3.2 cm cephalocaudal.No new left renal masses are seen.No perinephric fluid collections are identified. 3. 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 4. Peritoneal space:Large and small bowel loops are normal in caliber. Minimal diverticulosis of the sigmoid colon is noted.There is no ascites. A small cystic lesion in the greater omentum is again noted measuring 3.3 cm diameter on image 33 series 6 with punctate peripheral calcification.There is no enhancement of this lesion. 5. Pelvis findings:The partially filled bladder is unremarkable.The uterus is atrophic.There is no pelvic adenopathy. Procedure Note Interface, Radiant Results - Tue Jan 13, 2017 12:[address] abdomen and pelvis Indication: 66-year-old lady with renal carcinoma for restaging, clear cell renal carcinoma grade 2, status post cryoablation 12/09/2016 Comparison studies: Outside noncontrast CT abdomen and pelvis August 14, 2016, outside CT chest of July 30, 2016. Technique: Dynamic IV contrast-enhanced images were obtained through the abdomen and pelvis. Delayed scans were done through the abdomen and pelvis. Oral contrast was given. Findings: Heart size is within normal limits. Calcification of the mitral annulus is noted. The lung bases are clear. 1. Liver and spleen: Normal size without focal lesions apart from a small simple cyst adjacent to the gallbladder fossa. Surgical clips are noted in the gallbladder fossa. There is no bile duct dilatation. 2. Adrenal glands and kidneys: No adrenal mass is identified. Mild low density nodularity of the left adrenal gland is again noted without enhancing mass. The right kidney is unremarkable apart from a few areas of mild cortical scarring and small junctional defect in the upper pole medially. There has been interval treatment of enhancing mass in the lateral aspect of the left kidney with development of somewhat ill-defined hypodense mass larger than the original lesion. The post ablation mass measures 30 Hounsfield units on precontrast scans and in all phases of contrast administration. No residual/ recurrent enhancing mass is seen. The low density lesion measures about 3.6 cm AP x 3.0 cm transverse x 3.2 cm cephalocaudal. No new left renal masses are seen. No perinephric fluid collections are identified. 3. Pancreas and retroperitoneum: The pancreas is unremarkable. There is no central retroperitoneal adenopathy. Moderate atherosclerosis and tortuosity of the aorta is again noted. 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 4. Peritoneal space: Large and small bowel loops are normal in caliber. Minimal diverticulosis of the sigmoid colon is noted. There is no ascites. A small cystic lesion in the greater omentum is again noted measuring 3.3 cm diameter on image 33 series 6 with punctate peripheral calcification. There is no enhancement of this lesion. 5. Pelvis findings: The partially filled bladder is unremarkable. The uterus is atrophic. There is no pelvic adenopathy. IMPRESSION 1. Cryoablation of small primary left renal carcinoma without residual/ recurrent enhancing mass. 2. No evidence of abdominal/pelvic metastatic disease. 3. Stable small omental cyst. Finalized by Kishore Aceves M.D. on 01/13/2017 12:48 PM. Dictated by Kishore Aceves M.D. on 01/13/2017 12:[address] GUIDE FOR RF ABLATION PERC (12/09/2016 [...] Results - ThuDec 10, 2016 1:57 PM CORRESPONDENCE TRANSCRIBER PROCEDURE: CRYOABLATION OF SOLITARY LEFT RENAL TUMOR [...] evaluation of treatment response and local control. Mukund Taylor M.D, the attending radiologist, was present for [...] K/UL Specimen Blood POC GLUCOSE (12/09/2016 9:42 AM) Component Value Range Glucose, POC 163 (H) [...] - Tue Nov 18, 2016 7:05 PM CORRESPONDENCE TRANSCRIBER Renal Ultrasound Clinical Indication: renal mass, clear [...]
[2017-01-19] MEDS ORDERED: COLE625T9 PO (10:27)
[2017-01-19] MEDS ORDERED: ALBU0.63 IH (10:27)
[2017-01-19] MEDS ORDERED: ANAS1TAB7 PO (10:27)
[2017-01-19] MEDS ORDERED: METF1000 PO (10:27)
[2017-01-19 10:34] VITALS: BP 177/91
[2017-01-19] MEDS ORDERED: ONDA4TAB8 PO (10:35)
[2017-01-22] MEDS ORDERED: HYDR-3730 PO (14:14)
== END 2017-01-19 11:13 | disposition home or self-care (01) ==
LOC: PREOP 10:03
PROVIDERS: ATTEND Surgery Pediatric Surgery
DX: Z01.818 Encounter for other preprocedural examination (principal); Z11.2 Encounter for screening for other bacterial diseases; C50.911 Malignant neoplasm of unspecified site of right female breast
CPT/HCPCS: 87081

== ENCOUNTER 2017-01-22 06:40 | Day surgery (SDC) | payer MEDICARE, MEDICAID ==
[~2017-01-22] VITALS: Ht 152.4 cm; Wt 103.4 kg
[~2017-01-22 06:40] MED LIST changes: +ALBU0.63 IH; +ANAS1TAB7 PO; +ONDA4TAB8 PO
[2017-01-22] MEDS ORDERED: CLINDAMYCIN 600 MG/50 ML IVPB 50 ML IV ONE ×2 (06:46→07:15)
--- OUTSIDE RECORDS SUMMARY | 2017-01-22 06:46 | XMS REPORT | Continuity of Care Document ---
Author Author [facility] Organization [facility] Address Unknown Phone Unavailable Care Team Providers Care Aircraft Armorer Name Role Phone MilnerDayna saravia PCP [phone] Source Comments Some departments are not documenting in the electronic medical record. If you do not see the information that you expected, contact Release of Information in the Health Information Management department at [phone] for further assistance in locating additional records.[facility] Active Allergies and Adverse Reactions Allergen Noted Date Severity Reactions Comments Iodine 09/02/2016 Medium SHORTNESS OF BREATH Iodine allergy in seafood, not in contrast dye Pcn 09/02/2016 Medium EDEMA Current Medications Prescription Sig. Disp. 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 Very complex medical hx w/ new [...] Gary MD Renal mass (Primary Dx) 01/13/2017 [facility] Radiology Lissett Farley MD Encounter 01/13/2017 Ancillary Urology Raina Muro MD Kidney cancer, primary, Orders with metastasis from kidney to other site, unspecified laterality (HCC) (Primary Dx) 01/09/2017 [facility] Radiology Lissett Farley MD Canceled (PATIENT Encounter RESCHEDULED) 01/09/2017 Screening Form 01/05/2017 Telephone Urology Lissett Farley MD Allergic reaction 01/02/2017 Orders Only Urology Lissett Farley MD Renal mass (Primary Dx ) 12/09/2016 [facility] Radiology Lissett Farley MD Renal mass Encounter Bertin Curry RN Collins, Zachary S, MD 12/09/2016 [facility] Lissett Farley MD Other specified disorders Encounter of kidney and ureter 12/09/2016 Ancillary Urology Lissett Farley MD Renal cell cancer, left Orders (Primary Dx) 12/05/2016 Telephone Radiology Basia Mcgee RN 11/18/2016 Office Visit Lissett Weeks MD Renal mass (Primary Dx) 11/18/2016 [facility] Radiology Lissett Farley MD Encounter 11/18/2016 [facility] Radiology Lissett Farley MD Canceled (Error) Encounter 11/18/2016 Telephone Radiology Basia Mcgee RN 11/18/2016 Orders Only Lissett Weeks MD Renal mass (Primary Dx ) Social History Tobacco Use Types Packs/Day Years Used Date Former Smoker Smokeless Tobacco: Never Used Alcohol Use Drinks/Week oz/Week Comments No Last Filed Vital Signs Vital Sign Reading Time Taken Blood Pressure 126/86 01/13/2017 1:01 PM MANAGER BOOKS Pulse 89 01/13/2017 1:01 PM MANAGER BOOKS Temperature 36.9 C (98.4 F) 12/09/2016 9:08 AM MANAGER BOOKS Respiratory Rate 16 09/02/2016 9:31 AM CDT Height 1.524 m (5') 01/13/2017 1:01 PM MANAGER BOOKS Weight 100.699 kg (222 lb) 01/13/2017 1:01 PM MANAGER BOOKS Body Mass Index 43.36 01/13/2017 1:01 PM MANAGER BOOKS Oxygen Saturation 93% 01/13/2017 1:01 PM MANAGER BOOKS Plan of Care Date Type Specialty Providers Description 07/14/2017 Appointment Radiology Lissett Farley MD [address] [place] [address] [phone] (Fax) 07/14/2017 Appointment Urology Lissett Farley MD [address] [place] [address] [phone] (Fax) Health Maintenance Due Date Last Done [...] - Tue Jan 13, 2017 12:[address] abdomen and pelvis Indication: 66-year-old lady [...] Kishore Aceves M.D. on 01/13/2017 12:31 PM. POC CREATININE, RAD (01/13/2017 10:37 AM) Component Value Range Creatinine, POC 1.2 (H) 0.4-1.00 MG/DL CT GUIDE FOR RF ABLATION PERC (12/09/2016 [...] Results - ThuDec 10, 2016 1:57 PM MANAGER BOOKS PROCEDURE: CRYOABLATION OF SOLITARY LEFT RENAL TUMOR [...] - Tue Nov 18, 2016 7:05 PM MANAGER BOOKS Renal Ultrasound Clinical Indication: renal mass, clear [...]
--- OUTSIDE RECORDS SUMMARY | 2017-01-22 06:47 | XMS REPORT | Continuity of Care Document ---
Author Author [facility] Organization [facility] Address Unknown Phone Unavailable Care Team Providers Care Sheet Rock Applier Name Role Phone MilnerDayna saravia PCP [phone] Source Comments Some departments are not documenting in the electronic medical record. If you do not see the information that you expected, contact Release of Information in the Health Information Management department at [phone] for further assistance in locating additional records.[facility] Active Allergies and Adverse Reactions Allergen Noted Date Severity Reactions Comments Iodine 09/02/2016 Medium SHORTNESS OF BREATH Iodine allergy in seafood, not in contrast dye Pcn 09/02/2016 Medium EDEMA Current Medications Prescription Sig. Disp. 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 Very complex medical hx w/ new [...] MD Renal mass (Primary Dx) 01/13/2017 [facility] Radiology Lissett Farley MD Encounter 01/13/2017 Ancillary Urology Raina Muro MD Kidney cancer, primary, Orders with metastasis from kidney to other site, unspecified laterality (HCC) (Primary Dx) 01/09/2017 [facility] Radiology Lissett Farley MD Canceled (PATIENT Encounter RESCHEDULED) 01/09/2017 Screening Form 01/05/2017 Telephone Urology Lissett Farley MD Allergic reaction 01/02/2017 Orders Only Urology Lissett Farley MD Renal mass (Primary Dx ) 12/09/2016 [facility] Radiology Lissett Farley MD Renal mass Encounter Bertin Curry RN Collins, Zachary S, MD 12/09/2016 [facility] Lissett Farley MD Other specified disorders Encounter of kidney and ureter 12/09/2016 Ancillary Urology Lissett Farley MD Renal cell cancer, left Orders (Primary Dx) 12/05/2016 Telephone Radiology Basia Mcgee RN 11/18/2016 Office Visit Lissett Weeks MD Renal mass (Primary Dx) 11/18/2016 [facility] Radiology Lissett Farley MD Encounter 11/18/2016 [facility] Radiology Lissett Farley MD Canceled (Error) Encounter 11/18/2016 Telephone Radiology Basia Mcgee RN 11/18/2016 Orders Only Lissett Weeks MD Renal mass (Primary Dx ) Social History Tobacco Use Types Packs/Day Years Used Date Former Smoker Smokeless Tobacco: Never Used Alcohol Use Drinks/Week oz/Week Comments No Last Filed Vital Signs Vital Sign Reading Time Taken Blood Pressure 126/86 01/13/2017 1:01 PM SUPERVISOR ELECTROLYTIC TINNING Pulse 89 01/13/2017 1:01 PM SUPERVISOR ELECTROLYTIC TINNING Temperature 36.9 C (98.4 F) 12/09/2016 9:08 AM SUPERVISOR ELECTROLYTIC TINNING Respiratory Rate 16 09/02/2016 9:31 AM CDT Height 1.524 m (5') 01/13/2017 1:01 PM SUPERVISOR ELECTROLYTIC TINNING Weight 100.699 kg (222 lb) 01/13/2017 1:01 PM SUPERVISOR ELECTROLYTIC TINNING Body Mass Index 43.36 01/13/2017 1:01 PM SUPERVISOR ELECTROLYTIC TINNING Oxygen Saturation 93% 01/13/2017 1:01 PM SUPERVISOR ELECTROLYTIC TINNING Plan of Care Date Type Specialty Providers Description 07/14/2017 Appointment Radiology Lissett Farley MD [address] [place] [address] [phone] (Fax) 07/14/2017 Appointment Urology Lissett Farley MD [address] [place] [address] [phone] (Fax) Health Maintenance Due Date Last Done [...] - Tue Jan 13, 2017 12:51 PM SUPERVISOR ELECTROLYTIC TINNING CT abdomen and pelvis Indication: 66-year-old lady [...] Results - ThuDec 10, 2016 1:57 PM SUPERVISOR ELECTROLYTIC TINNING PROCEDURE: CRYOABLATION OF SOLITARY LEFT RENAL TUMOR [...] - Tue Nov 18, 2016 7:05 PM SUPERVISOR ELECTROLYTIC TINNING Renal Ultrasound Clinical Indication: renal mass, clear [...]
[2017-01-22 07:00] VITALS: BP 154/75
[2017-01-22] MEDS ORDERED: LIDOCAINE 1% INJ 20 ML (XYLOCAINE) VIAL ONE ×2 (07:35→08:57)
--- NOTE | 2017-01-22 08:11 | Progress Note-Pre Operative ---
Pre-Operative Progress Note H&P Reviewed The H&P was reviewed, patient examined and no changes noted. Date H&P Reviewed: Jan 22, 2017 Time H&P Reviewed: 07:55 Pre-Operative Diagnosis: Right breast cancer RENETTA VERNON APRN Jan 22, 2017 8:11 am
[2017-01-22] MEDS ORDERED: RT-ALBUTEROL SULF 2.5 MG/3 ML PRE-MIX VIAL INH ONE (10:30)
[2017-01-22] MEDS ORDERED: SEVOFLURANE (ULTANE) 15 ML INHAL SOLN ONE ×3 (11:00→14:02)
[2017-01-22] MEDS ORDERED: LACTATED RINGERS 1,000 ML IV ONE ×2 (11:00→13:42)
[2017-01-22] MEDS ORDERED: LIDOCAINE PF 2% 10 ML (XYLOCAINE) AMP ONE (11:00)
[2017-01-22] MEDS ORDERED: fentaNYL INJECTION 100 MCG/2 ML AMP ONE (11:00)
[2017-01-22] MEDS ORDERED: MIDAZOLAM 2 MG/2 ML (VERSED) VIAL ONE (11:00)
[2017-01-22] MEDS ORDERED: ONDANSETRON 4 MG/2 ML (SDV) Z0FRAN ONE ×2 (11:00→15:18)
[2017-01-22] MEDS ORDERED: proPOfol 200 MG/20 ML (DIPRIVAN) VIAL IV ONE (11:00)
[2017-01-22] MEDS: LACTATED RINGERS 1,000 ML IV PRN ×2 (11:09→12:45)
[2017-01-22] MEDS ORDERED: METHYLENE BLUE 1% INJ 1 ML AMP ONE (11:40)
[2017-01-22] MEDS ORDERED: BUP/EPI 0.5% 1:200,000 (SENSORCAINE) 30 ML VIAL ONE (11:40)
--- NOTE | 2017-01-22 12:07 | Diagnostic Imaging Report ---
EXAMINATION: Lymphoscintigraphy. After the subdermal injection of 1 mCi of Tc 99m sulfur colloid, around the areola, scintigraphic imaging was performed over the chest . INDICATION: Right breast cancer. FINDINGS: A sentinel lymph node is detected along the right axilla. IMPRESSION: Right axillary sentinel lymph node detected. Dictated by: Dictated on workstation # [id number]
--- NOTE | 2017-01-22 12:15 | Diagnostic Imaging Report ---
PROCEDURE: Ultrasound-guided hookwire needle localization of breast mass . INDICATION: Right breast cancer. CONSENT: Informed consent was obtained from the patient. The risks, benefits, potential complications and alternatives were reviewed and all questions answered to the patient's satisfaction. FINDINGS: Ultrasound images demonstrate an hypoechoic nodule measuring the 9 mm located at 9:00 zone, 4 CM. This is slightly medial and inferior relative to the previous described location of 10:00, 6 CM from the nipple, about 2 CM away. Confirmation with subsequent mammogram is planned. PROCEDURE: After sterile preparation and draping, 1% lidocaine was utilized for local anesthesia. A hookwire introducer needle was advanced under live ultrasound guidance to the level of the lesion from a lateral to medial approach. Good needle position was documented with ultrasound images. The hookwire was deployed and the needle withdrawn, simultaneously. The patient tolerated the procedure well with no immediate complications. IMPRESSION: Successful ultrasound hookwire needle localization of right breast mass at 9:00 4 CM from the nipple measuring 9 mm. This is about 2 cm medial and the inferior to previously identified the cancer. The correlating mammogram with possible placement of another needle localization wire will be performed if needed based on the mammogram findings. Dictated by: Dictated on workstation # [id number]
[2017-01-22] MEDS ORDERED: ESMOLOL 100 MG/10 ML (BREVIBLOC) VIAL ONE (12:33)
--- NOTE | 2017-01-22 14:13 | Progress Note-Post Operative ---
Post-Operative Progess Note Commercial Property Administrator sarita cormier BILINGUAL TEACHER Pre-Operative Diagnosis Right breast cancer Post-Operative Diagnosis same, 2 sentinel nodes negative. Post-Op Procedure Note Date of Procedure: Jan 22, 2017 Name of Procedure: right breast needle localization quadrantectomy with sentinel node bx. Anesthesia Type general LMA Estimated blood loss (mL): minimal Specimen(s) collected right breast, sentinel node x2 BARBARA HAWTHORNE MD Jan 22, 2017 14:13
[2017-01-22] MEDS ORDERED: HYDR-3730 PO (14:14)
[2017-01-22] MEDS ORDERED: ONDANSETRON 4 MG/2 ML (SDV) Z0FRAN IVP PRN (14:15)
[2017-01-22] MEDS ORDERED: HYDROcodone/APAP 5 MG/325 MG (LORTAB) TAB PO ONE (14:15)
[2017-01-22] MEDS ORDERED: morphine INJ 10 MG/ML 1ML (SYR OR VIAL) IVP PRN (14:15)
[2017-01-22] MEDS ORDERED: ACETAMINOPHEN 325 MG TABLET/CAPLET (TYLENOL) PO PRN (14:15)
--- NOTE | 2017-01-22 14:15 | Discharge Inst-Surgical ---
D/C Lap Instructions-CHRISTOPH New, Converted, or Re-Newed RX: RX on Chart Follow Up Appt in 2 weeks Activity as tolerated No driving for 24 hours No driving while on pain medications Incentive Spirometry use every 2 hours while awake Regular Diet Symptoms to Report: Fever over 101 degree F, Nausea/Vomiting Infection Signs and Symptoms to report: Increased redness, Foul odor of wound, Increased drainage Bathing instructions: May shower Operative Area Clean/Dry; Keep incision clean/dry If any problems/questions: Contact your physician or go to Emergency Room BARBARA HAWTHORNE MD Jan 22, 2017 14:15
[2017-01-22] MEDS ORDERED: MEPERIDINE (DEMEROL) INJ 50 MG/ML IVP PRN (14:30)
[2017-01-22] MEDS: morphine INJ 10 MG/ML 1ML (SYR OR VIAL) IVP PRN ×2 (14:41→14:53)
[2017-01-22] MEDS: ONDANSETRON 4 MG/2 ML (SDV) Z0FRAN IVP PRN ×2 (14:58→15:20)
[2017-01-22 15:40] VITALS: BP 158/67
[2017-01-22 16:10] VITALS: BP 160/71
--- NOTE | 2017-01-22 16:24 | Diagnostic Imaging Report ---
PROCEDURE: Mammogram guided hookwire needle localization of breast mass. INDICATION: Right breast cancer. New needle localization wire needs to be placed to bracket the involved area based on comparison mammogram after ultrasound-guided placement of the first wire based on nodule seen by ultrasound slightly from the original biopsy clip. CONSENT: Informed consent was obtained from the patient. The risks, benefits, potential complications and alternatives were reviewed and all questions answered to the patient's satisfaction. FINDINGS: Initial mammograms demonstrate a previously placed wire via ultrasound guidance. This is however located medial and inferior to the biopsy clip. It is uncertain if there is a new nodule or there is interval change in the area due to cancer treatment. New needle localization wire needs to be placed to bracket the involved area. PROCEDURE: After sterile preparation and draping, 1% lidocaine was utilized for local anesthesia. A hookwire introducer needle was advanced under mammogram guidance to the level of the biopsy clip. Good needle position was documented with cc and lateral mammogram images. The hookwire was deployed and the needle withdrawn simultaneously. The patient tolerated the procedure well with no immediate complications. IMPRESSION: Successful mammogram hookwire needle localization of biopsy clip marking original site of a lateral right breast cancer. Along with the other wire placed with ultrasound guidance based on the nodule seen by ultrasound, this would bracket the area of concern around the biopsy proven previously seen cancer. Some of the changes at the site could be related to interval chemotherapy treatment. BI-RADS 6. Known malignancy. Dictated by: Dictated on workstation # [id number]
--- NOTE | 2017-01-22 16:26 | Diagnostic Imaging Report ---
EXAMINATION: Specimen radiograph of breast lumpectomy biopsy post hookwire needle localization placement. INDICATION: Check adequacy of right breast hookwire guided excisional biopsy. FINDINGS: The biopsy clip and 2 wires with the underlying parenchymal densities at the area of interest appears to be present in the specimen and therefore the specimen is considered adequate. IMPRESSION: Specimen radiograph demonstrates the hookwire and surrounding specimen that appears to contain biopsy clip, 2 wires and parenchymal densities from the area of interest. Pathology is pending. Dictated by: Dictated on workstation # [id number]
[2017-01-22 16:40] VITALS: BP 165/72
[2017-01-22 16:45] VITALS: BP 165/72
--- NOTE | 2017-01-22 20:04 | Diagnostic Imaging Report ---
EXAMINATION: Right breast digital diagnostic mammogram with CAD with CC and lateral views of the right breast. The current study was also evaluated with a Computer Aided Detection (CAD) system. INDICATION: Post ultrasound-guided needle localization of lesion. History of breast cancer. FINDINGS: From lateral approach there is a needle localization wire in place. It is located about 2 cm inferior to biopsy clip. When compared with prior mammograms the nodule seen on ultrasound could represent a different lesion from the previously seen lung cancer or possible displacement of the marker after the biopsy occurred. There has been interval chemotherapy with potential changes also to the neoplasm. IMPRESSION: The wire placed previously on the lesion at the vicinity of the cancer site based on ultrasound seen nodule is slightly inferior and medial relative to the area marked with a biopsy clip. Another wire localization will be needed to also include the area more laterally and superiorly and the clip marker site. ACR BI-RADS Category 6: Known malignancy. Dictated by: Dictated on workstation # [id number]
--- NOTE | 2017-01-23 09:36 | OPERATIVE REPORT ---
PROCEDURE PHYSICIAN: BARBARA MELENDEZ DATE OF PROCEDURE: 01/22/2017 ATTENDING PRIMARY CARE PHYSICIAN: Dr. Dayna Milner POSTOPERATIVE DIAGNOSIS: Right breast infiltrating ductal carcinoma POSTOPERATIVE DIAGNOSIS: Right breast infiltrating ductal carcinoma. PROCEDURE: Right breast needle localization quadrantectomy, deep axillary sentinel node biopsy x2. SURGEON: Dr. Melendez. ANESTHESIA: General laryngeal mask airway. ESTIMATED BLOOD LOSS: Minimal. FINDINGS: [place] node number 1, along the anterior axilla with a nuclear probe counter of 666 and background of 19 and sentinel node number 2, probe counter 62 background 19. The lesion was identified by pathology as well as radiographic studies. DISPOSITION: The patient tolerated procedure well. Ms. Sarah Salgado is a 66-year-old female who we have seen before in the past for symptomatic cholecystitis and underwent a laparoscopic cholecystectomy. She was found to have a right breast abnormality on her yearly mammogram June 2016. She then underwent a right breast ultrasound and found to have an indeterminate 1.3 cm hypoechoic mass at approximately the 10 o'clock position. An ultrasound biopsy was performed, which did show infiltrating ductal carcinoma. Work-up was then performed and a CT scan of the chest did show a lesion of the left kidney. CT of the abdomen and pelvis again showed 2.8 cm hypervascular left renal mass. There was also indeterminate adrenal nodule. The patient was referred to [facility] while being started on p.o. Arimidex. 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 She underwent cryoablation of the left renal tumor on 12/09/16. She did have a follow-up ultrasound in 11/11/2016, which did show to decrease of the lesion size to approximately 8 mm in size. She is now in need of undergoing a needle localization breast quadrantectomy, as well as a sentinel node biopsy. She reports menses around age 10 and menopause around age 45. She has been twice with 2 live births. She did use oral contraceptive pills between ages of 14 and 19. She does not report any palpable breast masses. Previous breast biopsies as well as no nipple discharge or breast asymmetries or dimpling. PROCEDURE: The patient was brought to the patient the operating room, laid supine on the table. After adequate IV pain and sedative medications and general laryngeal mask airway intubation, the four-quadrant subareolar subdermal injection of methylene blue was performed. Before this, the patient underwent lymphoscintigraphy by nuclear medicine as well as needle localization placement by interventional radiology. We first proceeded with excision of the sentinel node. The first sentinel node blue was visibly blue and larger in size with a nuclear probe counter 666 and background of 19. A second node was found just distal to this with nuclear probe count of 62 and a background of 19. At these were both excised using electrocautery with visualization of good hemostasis. These were sent to pathology. They both came back negative for malignancy. The clavipectoral fascia was then closed using 3-0 Vicryl interrupted sutures. Subcutaneous tissue was then approximated using 3-0 Vicryl interrupted suture. The skin was closed using 4-0 Monocryl running subcuticular suture. We then proceeded with the right breast quadrantectomy. An inferolateral crescent shaped skin incision along the glabellar lines was made using a 15 blade. Before this, the area was anesthetized using 0.5% Marcaine with epinephrine. [place] were then pulled through the open wound. There were 2 needles placed. We then proceeded with a large quadrantectomy around both needles using Bri clamps as we moved distally. The entire lesion was excised using electrocautery with visualization of good hemostasis. The lesion was marked and sent to radiology, as well as pathology. The lesion was identified in radiology, as well as completely excised on pathology. The breast tissue was then approximated as well as possible using interrupted 3-0 Vicryl sutures. The subcutaneous tissue was then closed using 3-0 Vicryl interrupted sutures. Skin was closed using 4-0 Monocryl running subcuticular suture. The wound was then cleaned and covered with Dermabond. The patient tolerated the procedure well. We will start IV and oral pain medication as well as a clear liquid diet. Once she is tolerating clears, has good pain control with oral pain medication and is ambulating well, we will discharge her home. We will also recommend support garment to the right breast at all times for the next 2 weeks. Job ID: [id number] Dictated Date: 01/22/2017 14:25:27 Stock Or Delivery Clerk Date: 01/23/2017 09:16:00 / ronal ASH
== END 2017-01-22 16:45 | disposition home or self-care (01) ==
LOC: RAD 06:40
PROVIDERS: ATTEND Surgery Pediatric Surgery
DX: C50.411 Malignant neoplasm of upper-outer quadrant of right female breast (principal); C64.2 Malignant neoplasm of left kidney, except renal pelvis; E11.9 Type 2 diabetes mellitus without complications; Z79.811 Long term (current) use of aromatase inhibitors; Z79.84 Long term (current) use of oral hypoglycemic drugs
CPT/HCPCS: 19081; 19285; 76098; 78195; 82962; 88307; 88331; 88332; 88341; 88342; 94640; 94760

== ENCOUNTER 2017-01-29 15:48 | Emergency (ER) | payer MEDICARE, MEDICAID ==
[~2017-01-29] VITALS: Ht 152.4 cm; Wt 100.7 kg
[~2017-01-29 15:48] MED LIST changes: +HYDR-3730 PO
--- NOTE | 2017-01-29 16:22 | ED Cough/URI ---
General Chief Complaint: Respiratory Problems Stated Complaint: SWELLING IN LEGS,SOA Nursing Triage Note: PT HERE WITH C/O SOA AND LEG SWELLING FOR 3 DAYS. PT REPORTS HAVING A LUMPECTOMY ON R BREAST ON 01/22/17. Source: patient Exam Limitations: no limitations History of Present Illness Time seen by provider: 16:22 Initial Comments To ER with worsening shortness of breath and bilateral lower cavity swelling for 2-3 days. She has a history of this secondary to congestive heart failure. She is also short of breath and with a history of COPD. She wears oxygen at 2 liters around the clock at home. Dope Heater is Dr Munguia, PCP is Dr Milner. No fevers reported. She does have a nebulizer at home but has not used it today. She has a history of these symptoms before and states they were relieved with "a shot of lasix". She also has right breast bruising and had lumpectomy by Dr Melendez last week. Severity/Quality: moderate Associated Symptoms: cough, fever/chills, shortness of breath Allergies and Home Medications Allergies Coded Allergies: Penicillins (Verified Allergy, Unknown, 02/17/07) morphine (Verified Adverse Reaction, Intermediate, NAUSEA VOMITING, ) I GAVE PT MORPHINE, SHE BECAME NAUSEATED ET VOMITED, SHE STATES, "I DID NOT KNOW YOU WERE GIVING ME MORPHINE, IT MAKES ME SICK!" Uncoded Allergies: statins (Adverse Reaction, Intermediate, 07/06/13) Home Medications Albuterol Sulfate 0.63 Mg/3 Ml Vial.neb, 0.63 MG IH PRN, (Reported) Anastrozole 1 Mg Tablet, 1 MG PO DAILY, (Reported) Aspirin 81 Mg Tablet.dr, 81 MG PO DAILY, (Reported) Azithromycin 250 Mg Tablet, 250 MG PO UD, #6 TAKE 2 TABLETS ON DAY ONE THEN TAKE 1 TABLET DAILY FOR FOUR MORE DAYS Prescribed by: LYLE TURNER on 01/29/17 1758 Benzonatate 100 Mg Capsule, 100 MG PO PRN, (Reported) Budesonide/Formoterol Fumarate 10.2 Gm Hfa.aer.ad, 2 PUFF IH BID PRN for SHORTNESS OF BREATH, (Reported) Carvedilol 12.5 Mg Tablet, 12.5 MG PO BID, (Reported) Clopidogrel Bisulfate 75 Mg Tablet, 75 MG PO DAILY, (Reported) Colesevelam HCl 625 Mg Tablet, 1,875 MG PO BID, (Reported) Diazepam 2 Mg Tablet, 2 MG PO PRN PRN for ANXIETY, (Reported) Docusate Sodium 100 Mg Capsule, 100 MG PO DAILY PRN for CONSTIPATION, (Reported) Fluticasone Propionate 16 Gm Naspr, 2 SPRAY NA HS PRN for CONGESTION, (Reported) Fluticasone/Vilanterol 1 Each Blst.w.dev, 1 EACH IH DAILY, (Reported) Gabapentin 300 Mg Capsule, 600 MG PO TID, (Reported) Hydrochlorothiazide 25 Mg Tab, 25 MG PO DAILY, (Reported) Hydrocodone/Acetaminophen 1 Each Tablet, 1 EACH PO Q4H PRN for PAIN, (Reported) Hydrocodone/Acetaminophen 1 Each Tablet, 1-2 EACH PO Q4H, #35 Prescribed by: BARBARA MELENDEZ on 01/22/17 1414 Insulin Detemir 100 Unit/1 Ml Vial, 20 UNIT SQ HS, (Reported) Metformin HCl 1,000 Mg Tablet, 1,000 MG PO BID, (Reported) Montelukast Sodium 10 Mg Tablet, 10 MG PO HS, (Reported) [place] 3 Polyunsat Fatty Acids 1,000 Mg Cap, 1,000 MG PO BID, (Reported) TAKES 2 (1000MG) CAPSULES Ondansetron 4 Mg Tab.rapdis, 4 MG PO PRN, (Reported) Prednisone 20 Mg Tab, 40 MG PO DAILY, #6 Prescribed by: LYLE TURNER on 01/29/17 3838 Sertraline Hcl 100 Mg Tablet, 100 MG PO DAILY, (Reported) Tolterodine Tartrate 2 Mg Tab, 2 MG PO BID, (Reported) [Legatrin Pm] , 1 TAB PO HS PRN for CRAMPS, (Reported) Constitutional: see HPI, No chills, No fever EENTM: see HPI Respiratory: see HPI, cough, short of breath, wheezing Cardiovascular: no symptoms reported Genitourinary: no symptoms reported Musculoskeletal: no symptoms reported Skin: no symptoms reported Psychiatric/Neurological: No Symptoms Reported Hematologic/Lymphatic: No Symptoms Reported Immunological/Allergic: no symptoms reported Past [id number]-[id number]-[id number] Hx Patient Social History Alcohol Use: Denies Use Recreational Drug Use: No Former Smoker/When Quit: Jul 11, 2003 Recent Foreign Travel: No Contact w/Someone Who Travel: No Recent Infectious Disease Expo: No Recent Hopitalizations: Yes Immunizations Up To Date Tetanus Booster (TDap): Less than 5yrs Date of Pneumonia Vaccine: Jul 15, 2015 Date of Influenza Vaccine: Aug 18, 2016 Seasonal Allergies Seasonal Allergies: No Surgeries HX Surgeries: Yes (KIDNEY ABLATION-FORM TUMOR, R TKR, THROAT X3, DENTAL, CATARACTS, RENAL STEN) Surgeries: CABG, Section, Gallbladder, Tubal Ligation Respiratory Hx Respiratory Disorders: Yes Respiratory Disorders: COPD Cardiovascular Hx Cardiac Disorders: Yes Cardiac Disorders: Coronary Artery Disease, High Cholesterol, Hypertension Neurological Hx Neurological Disorders: No Reproductive System Hx Reproductive Disorders: No Sexually Transmitted Disease: No HIV/AIDS: No Female Reproductive Disorders: Denies Genitourinary Hx Genitourinary Disorders: Yes (KIDNEY TUMOR) Gastrointestinal Hx Gastrointestinal Disorders: No Gastrointestinal Disorders: Gall Bladder Disease Musculoskeletal Hx Musculoskeletal Disorders: Yes (SCIATIC NERVE PAIN) Musculoskeletal Disorders: Arthritis Endocrine Hx Endocrine Disorders: Yes Endocrine Disorders: Diabetes, Insulin dep HEENT HX ENT Disorders: Yes (READING GLASSES) HEENT Disorders: Cataract, Glaucoma Loss of Vision: Bilateral Hearing Impairment: Denies Cancer Hx Cancer: Yes (KIDNEY TUMOR) Cancer: Breast Psychosocial Hx Psychiatric Problems: Yes Behavioral Health Disorders: Anxiety, Depression Integumentary HX Skin/Integumentary Disorder: No Blood Transfusions Hx Blood Disorders: Yes (ANEMIA, 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) Adverse Reaction to a Blood Tr: No Family Medical History Significant Family History: CAD Under 55 Years Old Physical Exam Vital Signs Vital Sign - Last 12Hours 01/29/17 16:03 Temp 98.7 Pulse 75 Resp 18 B/P (MAP) 219/100 Pulse Ox 93 O2 Delivery Room Air O2 Flow Rate 2.00 Capillary Refill : Less Than 3 Seconds General Appearance: WD/WN, no apparent distress Eyes: Bilateral Eye EOMI, Bilateral Eye Normal Inspection, Bilateral Eye PERRL HEENT: PERRL/EOMI, normal ENT inspection Neck: non-tender, full range of motion Respiratory: no respiratory distress, no accessory muscle use, decreased breath sounds, No wheezing Cardiovascular: regular rate, rhythm, no murmur Gastrointestinal: normal bowel sounds, non tender, soft Extremities: no calf tenderness, pedal edema (bilaterally with left leg swelling greater than right as she's had saphenous vein harvesting for CABG remotely. ) Neurologic/Psychiatric: alert, normal mood/affect, oriented x 3 Skin: normal color, warm/dry, other (bruising and questionable erythema about the right breast incision . no drainage. soft, minimally tender. She voices no complaints about her breast. ) Progress/Results/Core Measures Results/Orders Lab Results Laboratory Tests Test 01/29/17 16:33 Range/Units White Blood Count 6.9 4.3-11.0 10^3/uL Red Blood Count 3.61 L 4.35-5.85 10^6/uL Hemoglobin 9.6 L 11.5-16.0 G/DL Hematocrit 32 L 35-52 % Mean Corpuscular Volume 89 80-99 FL Mean Corpuscular Hemoglobin 27 25-34 PG Mean Corpuscular Hemoglobin Concent 30 L 32-36 G/DL Red Cell Distribution Width 14.8 H 10.0-14.5 % Platelet Count 272 130-400 10^3/uL Mean Platelet Volume 10.0 7.4-10.4 FL Neutrophils (%) (Auto) 69 42-75 % Lymphocytes (%) (Auto) 19 12-44 % Monocytes (%) (Auto) 9 0-12 % Eosinophils (%) (Auto) 4 0-10 % Basophils (%) (Auto) 0 0-10 % Neutrophils # (Auto) 4.7 1.8-7.8 X 10^3 Lymphocytes # (Auto) 1.3 1.0-4.0 X 10^3 Monocytes # (Auto) 0.6 0.0-1.0 X 10^3 Eosinophils # (Auto) 0.3 0.0-0.3 10^3/uL Basophils # (Auto) 0.0 0.0-0.1 10^3/uL Prothrombin Time 13.5 12.2-14.7 SEC INR Comment 1.1 0.8-1.4 Sodium Level 140 135-145 MMOL/L Potassium Level 5.7 H 3.6-5.0 MMOL/L Chloride Level 105 98-107 MMOL/L Carbon Dioxide Level 30 21-32 MMOL/L Anion Gap 5 5-14 MMOL/L Blood Urea Nitrogen 26 H 7-18 MG/DL Creatinine 1.31 H 0.60-1.30 MG/DL Estimat Glomerular Filtration Rate 40 BUN/Creatinine Ratio 20 Glucose Level 170 H 70-105 MG/DL Calcium Level 9.0 8.5-10.1 MG/DL Total Bilirubin 0.3 0.1-1.0 MG/DL Aspartate Amino Transf (AST/SGOT) 11 5-34 U/L Alanine Aminotransferase (ALT/SGPT) 13 0-55 U/L Alkaline Phosphatase 61 40-136 U/L Troponin I < 0.30 <0.30 NG/ML B-Type Natriuretic Peptide 352.8 H <100.0 PG/ML Total Protein 6.5 6.4-8.2 G/DL Albumin 3.7 3.2-4.5 G/DL My Orders Orders - LYLE TURNER APRN Cbc With Automated Diff (01/29/17 16:22) Comprehensive Metabolic Panel (01/29/17 16:22) Protime With Inr (01/29/17 16:22) BNP (01/29/17 16:22) Troponin I (01/29/17 16:22) Chest 1 View, Ap/Pa Only (01/29/17 16:22) Saline Lock/Iv-Start (01/29/17 16:22) Albuterol/Ipra Inhalation Soln (Duoneb I (01/29/17 16:30) Svn Sm Volume Nebulizer Rt-Rfs (01/29/17 16:22) Furosemide Injection (Lasix Injection) (01/29/17 17:15) Medications Given in ED Current Medications Medications Dose Ordered Sig/Gil Route Start Time Stop Time Status Last Admin Dose Admin Albuterol/ Ipratropium 3 ml ONCE ONCE INH 01/29/17 16:30 01/29/17 16:31 DC 01/29/17 16:38 3 ML Vital Signs/I&O Vital Sign - Last 12Hours 01/29/17 01/29/17 16:03 16:39 Temp 98.7 Pulse 75 Resp 18 B/P (MAP) 219/100 Pulse Ox 93 96 O2 Delivery Room Air O2 Flow Rate 2.00 3.50 Blood Pressure Mean: 139 Departure Communication Progress Notes 1756-she does report improvement in symptoms after breathing treatment. Lasix will also be given considering the elevated BNP and chest x-ray appearance. Patient is adamant that she does not want to be admitted to the hospital Impression Impression: Primary Impression: COPD exacerbation Additional Impression: CHF (congestive heart failure) Disposition: 01 HOME, SELF-CARE Condition: Stable Departure-Patient Inst. Decision time for Depature: 17:56 Referrals: ALEXANDRU MILNER MD (PCP/Family) Primary Care Physician Patient Instructions: Chronic Obstructive Pulmonary Disease (COPD), Including Emphysema Add. Discharge Instructions: 1. Medication as directed 2. Steroids as directed 3. Follow-up with your doctor next week 4. Return to ER for any worsening All discharge instructions reviewed with patient and/or family. Voiced understanding. Scripts Cefdinir (Cefdinir) 300 Mg Capsule 300 MG PO BID, #14 CAP Prov: LYLE TURNER APRN 01/29/17 Prednisone (Prednisone) 20 Mg Tab 40 MG PO DAILY, #6 TAB Prov: LYLE TURNER APRN 01/29/17 Copy Copies To 1: WILLAM MUNGUIA MD; ALEXANDRU MILNER MD, PETER J APRN Jan 29, 2017 16:22
[2017-01-29] MEDS ORDERED: RT-ALBUTEROL/IPRATROPIUM 3 ML (DUONEB) VIAL INH ONE (16:30)
[2017-01-29 16:57] LABS: BASOPHILS % (AUTO) 0 % (0-10); EOSINOPHILS # (AUTO) 0.3 10^3/uL (0.0-0.3); EOSINOPHILS % (AUTO) 4 % (0-10); LYMPHOCYTES # (AUTO) 1.3 X 10^3 (1.0-4.0); LYMPHOCYTES % (AUTO) 19 % (12-44); MEAN CORPUSCULAR HEMOGLOBIN 27 PG (25-34); MEAN CORPUSCULAR HGB CONC 30 G/DL (32-36); MEAN CORPUSCULAR VOLUME 89 FL (80-99); MONOCYTES # (AUTO) 0.6 X 10^3 (0.0-1.0); MONOCYTES % (AUTO) 9 % (0-12); NEUTROPHILS # (AUTO) 4.7 X 10^3 (1.8-7.8); NEUTROPHILS % (AUTO) 69 % (42-75); PLATELET COUNT 272 10^3/uL (130-400); RED BLOOD COUNT 3.61 10^6/uL (4.35-5.85); RED CELL DISTRIBUTION WIDTH 14.8 % (10.0-14.5); WHITE BLOOD COUNT 6.9 10^3/uL (4.3-11.0)
--- NOTE | 2017-01-29 16:59 | Diagnostic Imaging Report ---
EXAMINATION: Portable upright radiograph of the chest. INDICATION: Shortness of breath and leg swelling. COMPARISON: 04/23/16. FINDINGS: There is mild bibasilar predominantly interstitial infiltrates. The heart size is borderline enlarged. No definite vascular congestion. No significant alveolar infiltrates. Mediastinum and denise appear unremarkable. Sternotomy wires are seen. IMPRESSION: Bilateral infrahilar predominantly interstitial infiltrates. This could be secondary to pulmonary vascular congestion or perhaps an atypical infection. Correlate clinically and with followup PA and lateral radiographs for better evaluation. Dictated by: Dictated on workstation # [id number]
[2017-01-29 17:06] LABS: INR 1.1 (0.8-1.4); PROTHROMBIN TIME PATIENT 13.5 SEC (12.2-14.7)
[2017-01-29 17:15] LABS: ALANINE AMINOTRANSFERASE 13 U/L (0-55); ALBUMIN 3.7 G/DL (3.2-4.5); ANION GAP 5 MMOL/L (5-14); ASPARTATE AMINO TRANSFERASE 11 U/L (5-34); BILIRUBIN,TOTAL 0.3 MG/DL (0.1-1.0); BLOOD UREA NITROGEN 26 MG/DL (7-18); BUN/CREATININE RATIO 20; CARBON DIOXIDE 30 MMOL/L (21-32); CHLORIDE 105 MMOL/L (98-107); CREATININE SERUM 1.31 MG/DL (0.60-1.30); GFR ESTIMATED 40; GLUCOSE 170 MG/DL (70-105); POTASSIUM 5.7 MMOL/L (3.6-5.0); SODIUM 140 MMOL/L (135-145); TOTAL PROTEIN 6.5 G/DL (6.4-8.2)
[2017-01-29] MEDS ORDERED: FUROSEMIDE 40 MG/4 ML INJ (LASIX) IVP ONE (17:15)
[2017-01-29 17:21] LABS: TROPONIN I < 0.30 NG/ML (<0.30)
[2017-01-29] MEDS ORDERED: PRD20T PO (17:58)
[2017-01-29] MEDS ORDERED: AZIT250T5 PO (17:58)
[2017-01-29] MEDS ORDERED: CEFD300C3 PO (18:06)
[2017-01-29 18:16] VITALS: BP 219/100
--- OUTSIDE RECORDS SUMMARY | 2017-02-01 10:29 | XMS REPORT | Continuity of Care Document ---
Author Author [facility] Organization [facility] Address Unknown Phone Unavailable Care Team Providers Care Private Branch Exchange Service Adviser Name Role Phone MilnerDayna saravia PCP [phone] Source Comments Some departments are not documenting in the electronic medical record. If you do not see the information that you expected, contact Release of Information in the Health Information Management department at [phone] for further assistance in locating additional records.[facility] Active Allergies and Adverse Reactions Allergen Noted Date Severity Reactions Comments Iodine 09/02/2016 Medium SHORTNESS OF BREATH Iodine allergy in seafood, not in contrast dye Pcn 09/02/2016 Medium EDEMA Current Medications Prescription Sig. Disp. Refills Start End Date Status Date [place]-3 Fatty Take 1 Cap by mouth twice [...] Date Renal mass 09/01/2016 Overview: -- 09/02/16: DECISION ANALYST visit. Very complex medical hx w/ new [...] Gary MD Renal mass (Primary Dx) 01/13/2017 [facility] Radiology Lissett Farley MD Encounter 01/13/2017 Ancillary Urology Raina Muro MD Kidney cancer, primary, Orders with metastasis from kidney to other site, unspecified laterality (HCC) (Primary Dx) 01/09/2017 [facility] Radiology Lissett Farley MD Canceled (PATIENT Encounter RESCHEDULED) 01/09/2017 Screening Form 01/05/2017 Telephone Urology Lissett Farley MD Allergic reaction 01/02/2017 Orders Only Urology Lissett Farley MD Renal mass (Primary Dx ) 12/09/2016 [facility] Radiology Lissett Farley MD Renal mass Encounter Bertin Curry RN Collins, Zachary S, MD 12/09/2016 [facility] Lissett Farley MD Other specified disorders Encounter of kidney and ureter 12/09/2016 Ancillary Urology Lissett Farley MD Renal cell cancer, left Orders (Primary Dx) 12/05/2016 Telephone Radiology Basia Mcgee RN 11/18/2016 Office Visit Lissett Weeks MD Renal mass (Primary Dx) 11/18/2016 [facility] Radiology Lissett Farley MD Encounter 11/18/2016 [facility] Radiology Lissett Farley MD Canceled (Error) Encounter 11/18/2016 Telephone Radiology Basia Mcgee RN 11/18/2016 Orders Only Lissett Weeks MD Renal mass (Primary Dx ) Social History Tobacco Use Types Packs/Day Years Used Date Former Smoker Smokeless Tobacco: Never Used Alcohol Use Drinks/Week oz/Week Comments No Last Filed Vital Signs Vital Sign Reading Time Taken Blood Pressure 126/86 01/13/2017 1:01 PM LABORATORY MECHANICAL TECHNICIAN Pulse 89 01/13/2017 1:01 PM LABORATORY MECHANICAL TECHNICIAN Temperature 36.9 C (98.4 F) 12/09/2016 9:08 AM LABORATORY MECHANICAL TECHNICIAN Respiratory Rate 16 09/02/2016 9:31 AM CDT Height 1.524 m (5') 01/13/2017 1:01 PM LABORATORY MECHANICAL TECHNICIAN Weight 100.699 kg (222 lb) 01/13/2017 1:01 PM LABORATORY MECHANICAL TECHNICIAN Body Mass Index 43.36 01/13/2017 1:01 PM LABORATORY MECHANICAL TECHNICIAN Oxygen Saturation 93% 01/13/2017 1:01 PM LABORATORY MECHANICAL TECHNICIAN Plan of Care Health Maintenance Due Date Last Done Comments Hepatitis C Screening 1948 Physical (Comprehensive) 1955 Exam Pertussis Vaccine 1959 Tetanus Vaccine 1965 Breast Cancer Screening 1988 Colorectal Cancer 1998 Screening Shingles Vaccine 2008 Osteoporosis Screening 2013 Prevnar/Pneumovax (#1) 2013 Influenza Vaccine 07/10/2017 Results from Last 3 Months * CT ABD WO/W PELVIS W (01/13/2017 11:07 [...] - Tue Jan 13, 2017 12:51 [address] LABORATORY MECHANICAL TECHNICIAN CT abdomen and pelvis Indication: 66-year-old lady [...] Kishore Aceves M.D. on 01/13/2017 12:31 PM. * POC CREATININE, RAD (01/13/2017 10:37 AM) Component Value Range Creatinine, POC 1.2 (H) 0.4-1.00 MG/DL * CT GUIDE FOR RF ABLATION PERC (12/09/2016 [...] Results - ThuDec 10, 2016 1:57 PM LABORATORY MECHANICAL TECHNICIAN PROCEDURE: CRYOABLATION OF SOLITARY LEFT RENAL TUMOR [...] evaluation of treatment response and local control. IMukund M.D, the attending radiologist, was present for [...] Sara Lacey M.D. on 12/10/2016 9:45 AM. * CBC AND DIFF (12/09/2016 12:07 PM) Only the most recent of 2 results within [...] Basophil Count 0.00 0-0.20 K/UL Specimen Blood * POC GLUCOSE (12/09/2016 9:42 AM) Component Value Range Glucose, POC 163 (H) 70-100 MG/DL * PROTIME INR (PT) (12/09/2016 8:07 AM) Component Value Range INR 1.1 0.8-1.2 Specimen Blood * COMPREHENSIVE METABOLIC PANEL (12/09/2016 8:07 AM) Component [...] the Clinical Pharmacist for questions. Specimen Blood * [employer] RENAL [employer]ADDER [employer] (11/18/2016 11:00 AM) Impressions [...] - Tue Nov 18, 2016 7:05 PM LABORATORY MECHANICAL TECHNICIAN Renal Ultrasound Clinical Indication: renal mass, clear [...]
--- OUTSIDE RECORDS SUMMARY | 2017-02-01 10:33 | XMS REPORT | Continuity of Care Document ---
Author Author [facility] Organization [facility] Address Unknown Phone Unavailable Allergies Active Description Code Type Severity Reaction Onset Reported/Identified Relationship to Patient Clinical Status Yes Penicillins [id number] Drug Allergy Unknown N/A 02/17/2007 Yes statins statins Moderate N/A 07/06/2013 Yes iodine [id number] Drug Allergy Unknown N/A 07/05/2014 Yes morphine [id number] Drug Allergy Moderate NAUSEA VOMITING 01/22/2017 Medications Problems Date Dx Coded Attending Type Code Diagnosis Diagnosed By 10/08/1421 WALT GEIGER MD, Ot C50.111 MALIGNANT NEOPLASM OF CENTRAL PORTION OF 10/08/1421 WALT GEIGER MD, Ot E11.9 TYPE 2 DIABETES MELLITUS WITHOUT COMPLIC 10/08/1421 WALT GEIGER MD, Ot I10 ESSENTIAL (PRIMARY) HYPERTENSION 10/08/1421 WALT GEIGER MD, Ot 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 10/08/1421 WALT GEIGER MD, Ot J44.9 CHRONIC OBSTRUCTIVE PULMONARY DISEASE, U 10/08/1421 WALT GEIGER MD, Ot M17.0 BILATERAL PRIMARY OSTEOARTHRITIS OF [place]NEE 10/08/1421 WALT GEIGER MD, Ot Z79.02 MORTAR WORKER (CURRENT) USE OF ANTITHROMBOTI 10/08/1421 WALT GEIGER MD, Ot Z79.82 PRISON (CURRENT) USE OF ASPIRIN 10/08/1421 WALT GEIGER MD, Ot Z87.891 PERSONAL HISTORY OF NICOTINE DEPENDENCE 07/08/2013 BARBARA HAWTHORNE MD Ot 041.3 KLEBSIELLA PNEUMONIAE 07/08/2013 BARBARA HAWTHORNE MD Ot 250.00 DIAB ARON WO COMPL, TYPE II OR UNSPEC TY 07/08/2013 BARBARA HAWTHORNE MD Ot 272.0 PURE HYPERCHOLESTEROLEM 07/08/2013 BARBARA HAWTHORNE MD, Ot 272.4 HYPERLIPIDEMIA NEC/NOS 07/08/2013 BABRARA HAWTHORNE MD Ot 285.9 ANEMIA NOS 07/08/2013 BARBARA HAWTHORNE MD Ot 403.90 HYPTNSV CHR KID DIS, UNSPEC, W CHR KD ST 07/08/2013 BARBARA HAWTHORNE MD Ot 414.01 CORONARY ATHEROSCLEROSIS OF [place] CORON 07/08/2013 BARBARA HAWTHORNE MD Ot 433.10 CAROTID ARTERY OCCLUSION W O CEREBRAL IN 07/08/2013 BARBARA HAWTHORNE MD Ot 443.9 PERIPH VASCULAR DIS NOS 07/08/2013 BARBARA HAWTHORNE MD Ot 496 CHR AIRWAY OBSTRUCT NEC 07/08/2013 BARBARA HAWTHORNE MD Ot 574.00 CHOLELITH W AC CHOLECYST 07/08/2013 BARBARA HAWTHORNE MD Ot 585.9 CHRONIC KIDNEY DISEASE, UNSPECIFIED 07/08/2013 BARBARA HAWTHORNE MD Ot 599.0 URIN TRACT INFECTION NOS 07/08/2013 BARBARA HAWTHORNE MD Ot V15.82 HISTORY OF TOBACCO USE 07/08/2013 BARBARA HAWTHORNE MD Ot V45.89 POSTSURGICAL STATES NEC 07/11/2013 ADRIAN SALGADO DOA K Ot 250.00 DIAB ARON WO COMPL, TYPE II OR UNSPEC TY 07/11/2013 ADRIAN SALGADO DOA K Ot 272.4 HYPERLIPIDEMIA NEC/NOS 07/11/2013 ADRIAN SALGADO DOA K Ot 275.2 DIS MAGNESIUM METABOLISM 07/11/2013 ADRIAN SALGADO DOA K Ot 285.9 ANEMIA NOS 07/11/2013 DAMIAN WANG BHAVANA K Ot 403.90 HYPTNSV CHR KID DIS, UNSPEC, W CHR KD ST 07/11/2013 ADRIAN SALGADO DOA K Ot 414.01 CORONARY ATHEROSCLEROSIS OF [place] CORON 07/11/2013 ADRIAN SALGADO DOA K Ot 443.9 PERIPH VASCULAR DIS NOS 07/11/2013 DAMIAN WANG BHAVANA K Ot 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, W (ACUTE) EX 07/11/2013 DAMIAN WANG BHAVANA K Ot 585.9 CHRONIC KIDNEY DISEASE, UNSPECIFIED 07/11/2013 DAMIAN WANG BHAVANA K Ot 728.87 MUSCLE WEAKNESS (GENERALIZED) 07/11/2013 DAMIAN WANG BHAVANA K Ot V15.82 HISTORY OF TOBACCO USE 07/11/2013 ADRIAN SALGADO DOA K Ot V58.67 LONG-TERM (CURRENT) USE OF INSULIN 08/03/2013 ALEXANDRU CASAS MD Ot 327.26 SLEEP RELATED HYPOVENTILATION/HYPOXEMIA 08/03/2013 ALEXANDRU CASAS MD Ot 786.09 RESPIRATORY ABNORM NEC 07/05/2014 BARBARA HAWTHORNE MD Ot 250.00 DIAB ARON WO COMPL, TYPE II OR UNSPEC TY 07/05/2014 BARBARA HAWTHORNE MD Ot 285.9 ANEMIA NOS 07/05/2014 BARBARA HAWTHORNE MD Ot 401.9 HYPERTENSION NOS 07/05/2014 BARBARA HAWTHORNE MD Ot 455.0 INT HEMORRHOID W/O COMPL 07/05/2014 BARBARA HAWTHORNE MD Ot 455.3 EXT HEMORRHOID W/O COMPL 07/05/2014 BARBARA HAWTHORNE MD Ot 496 CHR AIRWAY OBSTRUCT NEC 07/03/2015 ALEXANDRU CASAS MD Ot V76.12 07/12/2015 WILLAM KO MD Ot 250.00 DIAB ARON WO COMPL, TYPE II OR UNSPEC TY 07/12/2015 WILLAM KO MD Ot 272.4 HYPERLIPIDEMIA NEC/NOS 07/12/2015 WILLAM KO MD Ot 278.00 OBESITY, NOS 07/12/2015 WILLAM KO MD Ot 403.90 HYPTNSV CHR KID DIS, UNSPEC, W CHR KD ST 07/12/2015 WILLAM KO MD Ot 414.01 CORONARY ATHEROSCLEROSIS OF [place] CORON 07/12/2015 WILLAM KO MD Ot 416.8 CHR PULMON HEART DIS NEC 07/12/2015 WILLAM KO MD Ot 440.0 AORTIC ATHEROSCLEROSIS 07/12/2015 WILLAM KO MD Ot 440.1 RENAL ARTERY ATHEROSCLER 07/12/2015 WILLAM KO MD Ot 496 CHR AIRWAY OBSTRUCT NEC 07/12/2015 WILLAM KO MD Ot 585.9 CHRONIC KIDNEY DISEASE, UNSPECIFIED 07/12/2015 WILLAM KO MD Ot V15.82 HISTORY OF TOBACCO USE 07/12/2015 WILLAM KO MD, Ot V58.69 OTH MED,LT,CURRENT USE 07/12/2015 WILLAM KO MD Ot V85.38 BODY MASS INDEX 38.0-38.9, ADULT 07/24/2015 ALEX PITT Ot 272.4 07/24/2015 HUYNH-THONG PA, ALEX K Ot 401.9 07/24/2015 HUYNH-THONG PA, ALEX K Ot 414.00 07/24/2015 HYUNH-THONG PA, ALEX K Ot 433.10 07/24/2015 YESSENIA DAVID, ALEXANDRU L Ot V76.12 07/31/2015 HUYNH-THONG PA, ALEX K Ot 272.4 07/31/2015 HUYNH-THONG PA, ALEX K Ot 401.9 07/31/2015 HUYNH-THONG PA, ALEX K Ot 414.00 07/31/2015 HUYNH-THONG PA, ALEX K Ot 433.10 07/31/2015 YESSENIA DAVID, ALEXANDRU L Ot V76.12 08/22/2015 LENORA DAVID, KELSIE Ot 414.00 08/22/2015 LENORA DAVID, KELSIE Ot V45.81 08/27/2015 LENORA DAVID, KELSIE Ot 414.00 08/27/2015 LENORA DAVID, KELSIE Ot V45.81 09/06/2015 HUYNH-THONG PA, ALEX K Ot 272.4 09/06/2015 HUYNH-THONG PA, ALEX K Ot 401.9 09/06/2015 HUYNH-THONG PA, ALEX K Ot 414.00 09/06/2015 HUYNH-THONG PA, ALEX K Ot 433.10 09/12/2015 YESSENIA DAVID, ALEXANDRU L Ot 496 09/12/2015 YESSENIA DAVID, ALEXANDRU L Ot 799.02 09/12/2015 YESSENIA DAVID, ALEXANDRU Noyola Ot V76.12 09/12/2015 HUYNH-THONG PA, ALEX K Ot 272.4 09/12/2015 HUYNH-THONG PA, ALEX K Ot 396.3 09/12/2015 HUYNH-THONG PA, ALEX K Ot 397.0 09/12/2015 HUYNH-THONG PA, ALEX K Ot 401.9 09/12/2015 HUYNH-THONG PA, ALEX K Ot 414.00 09/12/2015 CHRISTOPH DAVID, BARBARA Ot V72.84 09/12/2015 YESSENIA DAVID, ALEXANDRU L Ot V76.12 09/12/2015 HUYNH-THONG PA, ALEX K Ot 272.4 09/12/2015 HUYNH-THONG PA, ALEX K Ot 401.9 09/12/2015 HUYNH-THONG PA, ALEX K Ot 414.00 09/12/2015 HUYNH-THONG PA, ALEX K Ot 433.10 09/12/2015 YESSENIA DAVID, ALEXANDRU Noyola Ot V76.12 09/12/2015 LENORA DAVID, KELSIE Ot 414.00 09/12/2015 LENORA DAVID, KELSIE Ot V45.81 09/13/2015 HUYNH-THONG PA, ALEX K Ot I25.811 09/13/2015 HUYNH-THONG PA, ALEX K Ot R06.02 09/13/2015 HUYNH-THONG PA, ALEX K Ot I25.811 09/13/2015 HUYNH-THONG PA, ALEX K Ot R06.02 09/13/2015 HUYNH-THONG PA, ALEX K Ot I25.811 09/13/2015 HUYNH-THONG PA, ALEX K Ot R06.02 10/08/2015 HUYNH-THONG PA, ALEX K Ot I25.811 10/08/2015 HUYNH-THONG PA, ALEX K Ot R06.02 10/11/2015 YESSENIA DAVID, ALEXANDRU L Ot 496 10/11/2015 YESSENIA DAVID, ALEXANDRU L Ot 799.02 10/11/2015 YESSENIA DAVID, ALEXANDRU Noyola Ot V76.12 10/11/2015 HUYNH-THONG PA, ALEX K Ot 272.4 10/11/2015 HUYNH-THONG PA, ALEX K Ot 396.3 10/11/2015 HUYNH-THONG PA, ALEX K Ot 397.0 10/11/2015 HUYNH-THONG PA, ALEX K Ot 401.9 10/11/2015 HUYNH-THONG PA, ALEX K Ot 414.00 10/11/2015 CHRISTOPH DAVID, BARBARA Ot V72.84 10/11/2015 YESSENIA DAVID, ALEXANDRU Noyola Ot V76.12 10/11/2015 HUYNH-THONG PA, ALEX K Ot 272.4 10/11/2015 HUYNH-THONG PA, ALEX K Ot 401.9 10/11/2015 HUYNH-THONG PA, ALEX K Ot 414.00 10/11/2015 LINO-THONG PA, ALEX K Ot 433.10 10/11/2015 YESSENIA DAVID, ALEXANDRU Noyola Ot V76.12 10/11/2015 LENORA DAVID, KELSIE Ot 414.00 10/11/2015 LENORA DAVID, KELSIE Ot V45.81 10/11/2015 MAIKEL DAVID, BASHAR J Ot I20.9 10/11/2015 MAIKEL DAVID, BASHAR J Ot Z95.1 10/11/2015 ABHISHEK PA, ALEX K Ot I25.811 10/11/2015 LINO-THONG PA, ALEX K Ot R06.02 10/11/2015 LINO-THONG PA, ALEX K Ot I25.811 10/11/2015 LINO-THONG PA, ALEX K Ot R06.02 11/23/2015 MAIKEL DAVID, WILLAM J Ot I20.9 11/23/2015 MAIKEL DAVID, BASHAR J Ot Z95.1 11/29/2015 MAIKEL DAVID, BASHAR J Ot I20.9 11/29/2015 MAIKEL DAVID, BASHAR J Ot Z95.1 12/11/2015 MAIKEL DAVID, BASHAR J Ot I20.9 ANGINA PECTORIS, UNSPECIFIED 12/11/2015 MAIKEL DAVID, BASHAR J Ot Z95.1 PRESENCE OF AORTOCORONARY BYPASS GRAFT 12/13/2015 YESSENIA DAVID, ALEXANDRU Noyola Ot 496 12/13/2015 YESSENIA DAVID, ALEXANDRU Noyola Ot 799.02 12/13/2015 YESSENIA DAVID, ALEXANDRU Noyola Ot V76.12 12/13/2015 ABHISHEK PA, ALEX K Ot 272.4 12/13/2015 LINO-THONG PA, ALEX K Ot 396.3 12/13/2015 LINO-THONG PA, ALEX K Ot 397.0 12/13/2015 LINO-THONG PA, ALEX K Ot 401.9 12/13/2015 LINO-THONG PA, ALEX K Ot 414.00 12/13/2015 CHRISTOPH DAVID, BARBARA Ot V72.84 12/13/2015 YESSENIA DAVID, ALEXANDRU Noyola Ot V76.12 12/13/2015 ABHISHEK PA, ALEX K Ot 272.4 12/13/2015 ABHISHEK PA, ALEX K Ot 401.9 12/13/2015 ABHISHEK PA, ALEX K Ot 414.00 12/13/2015 ABHISHEK PA, ALEX K Ot 433.10 12/13/2015 YESSENIA DAVID, ALEXANDRU L Ot V76.12 12/13/2015 LENORA DAVID, KELSIE Ot 414.00 12/13/2015 LENORA DAVID, KELSIE Ot V45.81 12/13/2015 ABHISHEK PA, ALEX Neha Ot I25.811 12/13/2015 ABHISHEK PA, ALEX K Ot R06.02 12/13/2015 MAIKEL DAVID, WILLAM Gonzalez Ot I20.9 12/13/2015 MAIKEL DAVID, WILLAM J Ot Z95.1 12/19/2015 YESSENIA DAVID, ALEXANDRU L Ot Z13.820 01/03/2016 YESSENIA DAVID, ALEXANDRU L Ot Z13.820 01/07/2016 MAIKEL DAVID, WILLAM J Ot I20.9 01/07/2016 MAIKEL DAVID, WILLAM J Ot Z95.1 01/08/2016 MAIKEL DAVID, MAHESHHAR J Ot I20.9 01/08/2016 MAIKEL DAVID, WILLAM J Ot Z95.1 01/09/2016 YESSENIA DAVID, ALEXANDRU L Ot Z13.820 01/10/2016 MAIKEL DAVID, WILLAM J Ot I20.9 01/10/2016 MAIKEL DAVID, WILLAM J Ot Z95.1 01/10/2016 MAIKEL DAVID, MAHESHHAR J Ot I20.9 01/10/2016 MAIKEL DAVID, BASHAR J Ot Z95.1 01/10/2016 MAIKEL DAVID, MAHESHHAR J Ot I20.9 01/10/2016 MAIKEL DAVID, BASHAR J Ot Z95.1 01/10/2016 MAIKEL DAVID, WILLAM J Ot I20.9 01/10/2016 MAIKEL DAVID, WILLAM J Ot Z95.1 01/29/2016 MAIKEL DAVID, MAHESHHAR J Ot I20.9 01/29/2016 MAIKEL DAVID, BASHAR J Ot Z95.1 02/01/2016 MAIKEL DAVID, WILLAM J Ot I20.9 02/01/2016 WILLAM KO MD Ot Z95.1 02/13/2016 AKASH SILVERMAN DO Ot J44.9 03/04/2016 AKASH SILVERMAN DO Ot J44.9 CHRONIC OBSTRUCTIVE PULMONARY DISEASE, U 03/12/2016 AKASH SILVERMAN DO Ot J44.9 CHRONIC OBSTRUCTIVE PULMONARY DISEASE, U 03/28/2016 ALEX PITT Ot E78.2 MIXED HYPERLIPIDEMIA 03/28/2016 ALEX PITT Ot I10 ESSENTIAL (PRIMARY) HYPERTENSION 03/28/2016 ALEX PITT Ot 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 03/28/2016 ALEX PITT Ot I65.23 OCCLUSION AND STENOSIS OF BILATERAL [place] 04/06/2016 WILLAM KO MD Ot I20.9 ANGINA PECTORIS, UNSPECIFIED 04/06/2016 WILLAM KO MD Ot Z95.1 PRESENCE OF AORTOCORONARY BYPASS GRAFT 04/08/2016 WILLAM KO MD Ot I20.9 ANGINA PECTORIS, UNSPECIFIED 04/08/2016 WILLAM KO MD Ot Z95.1 PRESENCE OF AORTOCORONARY BYPASS GRAFT 04/08/2016 WILLAM KO MD Ot I20.9 ANGINA PECTORIS, UNSPECIFIED 04/08/2016 WILLAM KO MD Ot Z95.1 PRESENCE OF AORTOCORONARY BYPASS GRAFT 04/09/2016 WILLAM KO MD Ot I20.9 ANGINA PECTORIS, UNSPECIFIED 04/09/2016 WILLAM KO MD Ot Z95.1 PRESENCE OF AORTOCORONARY BYPASS GRAFT 04/23/2016 ALEX PITT Ot E78.2 MIXED HYPERLIPIDEMIA 04/23/2016 ALEX PITT Ot I10 ESSENTIAL (PRIMARY) HYPERTENSION 04/23/2016 ALEX PITT Ot 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 04/23/2016 ALEX PITT Ot I65.23 OCCLUSION AND STENOSIS OF BILATERAL [place] 04/23/2016 WILLAM KO MD Ot E11.22 TYPE 2 DIABETES MELLITUS W DIABETIC MANAGER MSW 04/23/2016 WILLAM KO MD Ot E78.5 HYPERLIPIDEMIA, UNSPECIFIED 04/23/2016 WILLAM KO MD Ot I12.9 HYPERTENSIVE CHRONIC KIDNEY DISEASE W ST 04/23/2016 WILLAM KO MD Ot 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 04/23/2016 WILLAM KO MD Ot I27.2 OTHER SECONDARY PULMONARY HYPERTENSION 04/23/2016 WILLAM KO MD Ot J44.9 CHRONIC OBSTRUCTIVE PULMONARY DISEASE, U 04/23/2016 WILLAM KO MD Ot N18.9 CHRONIC KIDNEY DISEASE, UNSPECIFIED 04/23/2016 WILLAM KO MD Ot R94.39 ABNORMAL RESULT OF OTHER CARDIOVASCULAR 04/23/2016 WILLAM KO MD Ot Z79.899 OTHER PRISON (CURRENT) DRUG THERAPY 04/23/2016 WILLAM KO MD Ot Z87.891 PERSONAL HISTORY OF NICOTINE DEPENDENCE 04/23/2016 WILLAM KO MD Ot Z95.1 PRESENCE OF AORTOCORONARY BYPASS GRAFT 04/25/2016 ALEX PITT Ot E78.2 MIXED HYPERLIPIDEMIA 04/25/2016 ALEX PITT Ot I10 ESSENTIAL (PRIMARY) HYPERTENSION 04/25/2016 ALEX PITT Ot 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 04/25/2016 ALEX PITT Ot I65.23 OCCLUSION AND STENOSIS OF BILATERAL [place] 05/19/2016 WILLAM KO MD Ot E11.22 TYPE 2 DIABETES MELLITUS W DIABETIC MANAGER MSW 05/19/2016 WILLAM KO MD Ot E78.5 HYPERLIPIDEMIA, UNSPECIFIED 05/19/2016 WILLAM KO MD Ot I12.9 HYPERTENSIVE CHRONIC KIDNEY DISEASE W ST 05/19/2016 WILLAM KO MD Ot 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 05/19/2016 WILLAM KO MD Ot I27.2 OTHER SECONDARY PULMONARY HYPERTENSION 05/19/2016 WILLAM KO MD Ot J44.9 CHRONIC OBSTRUCTIVE PULMONARY DISEASE, U 05/19/2016 WILLAM KO MD Ot N18.9 CHRONIC KIDNEY DISEASE, UNSPECIFIED 05/19/2016 WILLAM KO MD Ot R94.39 ABNORMAL RESULT OF OTHER CARDIOVASCULAR 05/19/2016 WILLAM KO MD Ot Z79.899 OTHER MORTAR WORKER (CURRENT) DRUG THERAPY 05/19/2016 WILLAM KO MD Ot Z87.891 PERSONAL HISTORY OF NICOTINE DEPENDENCE 05/19/2016 WILLAM KO MD Ot Z95.1 PRESENCE OF AORTOCORONARY BYPASS GRAFT 07/09/2016 ALEXANDRU CASAS MD Ot N64.89 OTHER SPECIFIED DISORDERS OF BREAST 07/09/2016 ALEXANDRU CASAS MD Ot Z12.31 ENCNTR SCREEN MAMMOGRAM FOR MALIGNANT NE 07/11/2016 ALEXANDRU CASAS MD Ot R92.8 OTH ABN AND INCONCLUSIVE FINDINGS ON DX 07/15/2016 ALEXANDRU CASAS MD Ot R92.8 OTH ABN AND INCONCLUSIVE FINDINGS ON DX 07/15/2016 ALEXANDRU CASAS MD Ot R92.8 OTH ABN AND INCONCLUSIVE FINDINGS ON DX 07/15/2016 ALEXANDRU CASAS MD Ot R92.8 OTH ABN AND INCONCLUSIVE FINDINGS ON DX 07/16/2016 ALEXANDRU CASAS MD Ot N63 UNSPECIFIED LUMP IN BREAST 07/16/2016 ALEXANDRU CASAS MD Ot R92.8 OTH ABN AND INCONCLUSIVE FINDINGS ON DX 07/17/2016 ALEXANDRU CASAS MD Ot R92.8 OTH ABN AND INCONCLUSIVE FINDINGS ON DX 07/30/2016 ALEXANDRU CASAS MD Ot V76.12 OTH SCREEN MAMMO-MALIGN NEOPLASM OF [place] 07/30/2016 ALEX PITT Ot 272.4 HYPERLIPIDEMIA NEC/NOS 07/30/2016 ALEX PITT Ot 401.9 HYPERTENSION NOS 07/30/2016 ALEX PITT Ot 414.00 CORON ATHEROSCLER NOS TYPE VESSEL, NATIV 07/30/2016 ALEX PITT Ot 433.10 CAROTID ARTERY OCCLUSION W O CEREBRAL IN 07/30/2016 ALEXANDRU CASAS MD Ot V76.12 OTH SCREEN MAMMO-MALIGN NEOPLASM OF [place] 07/30/2016 KELSIE COOLEY MD Ot 414.00 CORON ATHEROSCLER NOS TYPE VESSEL, NATIV 07/30/2016 KELSIE COOLEY MD Ot V45.81 AORTOCORONARY BYPASS 07/30/2016 ALEX PITT Ot 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 07/30/2016 ALEX PITT Ot R06.02 SHORTNESS OF BREATH 07/30/2016 ALEXANDRU CASAS MD, Ot Z13.820 ENCOUNTER FOR SCREENING FOR OSTEOPOROSIS 07/30/2016 AKASH SILVERMAN DO Ot J44.9 CHRONIC OBSTRUCTIVE PULMONARY DISEASE, U 07/30/2016 ALEX PITT Ot E78.2 MIXED HYPERLIPIDEMIA 07/30/2016 ALEX PITT Ot I10 ESSENTIAL (PRIMARY) HYPERTENSION 07/30/2016 ALEX PITT Ot 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 07/30/2016 ALEX PITT Ot I65.23 OCCLUSION AND STENOSIS OF BILATERAL [place] 07/30/2016 ALEXANDRU CASSA MD Ot N64.89 OTHER SPECIFIED DISORDERS OF BREAST 07/30/2016 ALEXANDRU CASAS MD, Ot Z12.31 ENCNTR SCREEN MAMMOGRAM FOR MALIGNANT NE 07/30/2016 ALEXANDRU CASAS MD, Ot R92.8 OTH ABN AND INCONCLUSIVE FINDINGS ON DX 07/30/2016 ALEXANDRU CASAS MD Ot N63 UNSPECIFIED LUMP IN BREAST 07/30/2016 ALEXANDUR CASAS MD, Ot R92.8 OTH ABN AND INCONCLUSIVE FINDINGS ON DX 07/30/2016 WALT GEIGER MD Ot C50.111 MALIGNANT NEOPLASM OF CENTRAL PORTION OF 07/30/2016 WALT GEIGER MD Ot E11.9 TYPE 2 DIABETES MELLITUS WITHOUT COMPLIC 07/30/2016 WALT GEIGER MD, Ot I10 ESSENTIAL (PRIMARY) HYPERTENSION 07/30/2016 WALT GEIGER MD, Ot 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 07/30/2016 WALT GEIGER MD, Ot J44.9 CHRONIC OBSTRUCTIVE PULMONARY DISEASE, U 07/30/2016 WALT GEIGER MD, Ot M17.0 BILATERAL PRIMARY OSTEOARTHRITIS OF KNEE 07/30/2016 WALT GEIGER MD, Ot Z79.02 MORTAR WORKER (CURRENT) USE OF ANTITHROMBOTI 07/30/2016 WALT GEIGER MD, Ot Z79.82 MORTAR WORKER (CURRENT) USE OF ASPIRIN 07/30/2016 JUANJO DAVID, OLIVERCAMI Ot Z87.891 PERSONAL HISTORY OF NICOTINE DEPENDENCE 07/30/2016 YESSENIA DAVID, ALEXANDRU Noyola Ot 496 CHR AIRWAY OBSTRUCT NEC 07/30/2016 ALEXANDRU CASAS MD Ot 799.02 HYPOXEMIA 07/30/2016 ALEXANDRU CASAS MD Ot V76.12 OTH SCREEN MAMMO-MALIGN NEOPLASM OF [place] 07/30/2016 ALEX PITT Ot 272.4 HYPERLIPIDEMIA NEC/NOS 07/30/2016 ALEX PITT Ot 396.3 MITRAL/AORTIC VALERIE INSUFF 07/30/2016 ALEX PITT Ot 397.0 TRICUSPID VALVE DISEASE 07/30/2016 ALEX PITT Ot 401.9 HYPERTENSION NOS 07/30/2016 ALEX PITT Ot 414.00 CORON ATHEROSCLER NOS TYPE VESSEL, NATIV 07/30/2016 CHRISTOPH DAVID, BARBARA Ot V72.84 EXAM PRE-OPERATIVE NOS 07/30/2016 ALEXANDRU CASAS MD Ot V76.12 OTH SCREEN MAMMO-MALIGN NEOPLASM OF [place] 07/30/2016 ALEX PITT Ot 272.4 HYPERLIPIDEMIA NEC/NOS 07/30/2016 ALEX PITT Ot 401.9 HYPERTENSION NOS 07/30/2016 ALEX PITT Ot 414.00 CORON ATHEROSCLER NOS TYPE VESSEL, NATIV 07/30/2016 ALEX PITT Ot 433.10 CAROTID ARTERY OCCLUSION W O CEREBRAL IN 07/30/2016 ALEXANDRU CASAS MD Ot V76.12 OTH SCREEN MAMMO-MALIGN NEOPLASM OF [place] 07/30/2016 KELSIE COOLEY MD Ot 414.00 CORON ATHEROSCLER NOS TYPE VESSEL, NATIV 07/30/2016 KELSIE COOLEY MD Ot V45.81 AORTOCORONARY BYPASS 07/30/2016 ALEX PITT Ot 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 07/30/2016 ALEX PITT Ot R06.02 SHORTNESS OF BREATH 07/30/2016 ALEXANDRU CASAS MD Ot Z13.820 ENCOUNTER FOR SCREENING FOR OSTEOPOROSIS 07/30/2016 CLARIE SILVERMAN DOSON Minh Ot J44.9 CHRONIC OBSTRUCTIVE PULMONARY DISEASE, U 07/30/2016 ALEX PITT Ot E78.2 MIXED HYPERLIPIDEMIA 07/30/2016 ALEX PITT Ot I10 ESSENTIAL (PRIMARY) HYPERTENSION 07/30/2016 ALEX PITT Ot 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 07/30/2016 ALEX PITT Ot I65.23 OCCLUSION AND STENOSIS OF BILATERAL [place] 07/30/2016 ALEXANDRU CASAS MD, Ot N64.89 OTHER SPECIFIED DISORDERS OF BREAST 07/30/2016 ALEXANDRU CASAS MD, Ot Z12.31 ENCNTR SCREEN MAMMOGRAM FOR MALIGNANT NE 07/30/2016 ALEXANDRU CASAS MD, Ot R92.8 OTH ABN AND INCONCLUSIVE FINDINGS ON DX 07/30/2016 ALEXANDRU CASAS MD, Ot N63 UNSPECIFIED LUMP IN BREAST 07/30/2016 ALEXANDRU CASAS MD, Ot R92.8 OTH ABN AND INCONCLUSIVE FINDINGS ON DX 07/30/2016 WALT GEIGER MD Ot C50.111 MALIGNANT NEOPLASM OF CENTRAL PORTION OF 07/30/2016 WALT GEIGER MD Ot E11.9 TYPE 2 DIABETES MELLITUS WITHOUT COMPLIC 07/30/2016 WALT GEIGER MD, Ot I10 ESSENTIAL (PRIMARY) HYPERTENSION 07/30/2016 WALT GEIGER MD, Ot 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 07/30/2016 WALT GEIGER MD, Ot J44.9 CHRONIC OBSTRUCTIVE PULMONARY DISEASE, U 07/30/2016 WALT GEIGER MD, Ot M17.0 BILATERAL PRIMARY OSTEOARTHRITIS OF KNEE 07/30/2016 WALT GEIGER MD, Ot Z79.02 MORTAR WORKER (CURRENT) USE OF ANTITHROMBOTI 07/30/2016 WALT GEIGER MD, Ot Z79.82 PRISON (CURRENT) USE OF ASPIRIN 07/30/2016 WALT GEIGER MD, Ot Z87.891 PERSONAL HISTORY OF NICOTINE DEPENDENCE 07/30/2016 ALEXANDRU CASAS MD Ot N64.89 OTHER SPECIFIED DISORDERS OF BREAST 07/30/2016 ALEXANDRU CASAS MD, Ot Z12.31 ENCNTR SCREEN MAMMOGRAM FOR MALIGNANT NE 07/31/2016 WALT GEIGER MD, Ot C50.411 MALIG NEOPLM OF UPPER-OUTER QUADRANT OF 08/06/2016 ALEXANDRU CASAS MD Ot R92.8 OTH ABN AND INCONCLUSIVE FINDINGS ON DX 08/06/2016 ALEXANDRU CASAS MD, Ot N64.89 OTHER SPECIFIED DISORDERS OF BREAST 08/06/2016 ALEXANDRU CASAS MD, Ot Z12.31 ENCNTR SCREEN MAMMOGRAM FOR MALIGNANT NE 08/12/2016 ALEXANDRU CASAS MD, Ot R92.8 OTH ABN AND INCONCLUSIVE FINDINGS ON DX 08/14/2016 WALT GEIGER MD, Ot C50.111 MALIGNANT NEOPLASM OF CENTRAL PORTION OF 08/14/2016 WALT GEIGER MD, Ot E11.9 TYPE 2 DIABETES MELLITUS WITHOUT COMPLIC 08/14/2016 WALT GEIEGR MD, Ot I10 ESSENTIAL (PRIMARY) HYPERTENSION 08/14/2016 WALT GEIGER MD, Ot 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 08/14/2016 WALT GEIGER MD, Ot J44.9 CHRONIC OBSTRUCTIVE PULMONARY DISEASE, U 08/14/2016 WALT GEIGER MD, Ot M17.0 BILATERAL PRIMARY OSTEOARTHRITIS OF KNEE 08/14/2016 WALT GEIGER MD, Ot Z79.02 MORTAR WORKER (CURRENT) USE OF ANTITHROMBOTI 08/14/2016 WALT GEIGER MD, Ot Z79.82 MORTAR WORKER (CURRENT) USE OF ASPIRIN 08/14/2016 WALT GEIGER MD, Ot Z87.891 PERSONAL HISTORY OF NICOTINE DEPENDENCE 08/14/2016 WALT GEIGER MD, Ot C50.111 MALIGNANT NEOPLASM OF CENTRAL PORTION OF 08/14/2016 WALT GEIGER MD, Ot E11.9 TYPE 2 DIABETES MELLITUS WITHOUT COMPLIC 08/14/2016 WALT GEIGER MD, Ot I10 ESSENTIAL (PRIMARY) HYPERTENSION 08/14/2016 WALT GEIGER MD, Ot 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 08/14/2016 WALT GEIGER MD, Ot J44.9 CHRONIC OBSTRUCTIVE PULMONARY DISEASE, U 08/14/2016 WALT GEIGER MD, Ot M17.0 BILATERAL PRIMARY OSTEOARTHRITIS OF KNEE 08/14/2016 WALT GEIGER MD, Ot Z79.02 PRISON (CURRENT) USE OF ANTITHROMBOTI 08/14/2016 WALT GEIGER MD, Ot Z79.82 PRISON (CURRENT) USE OF ASPIRIN 08/14/2016 WALT GEIGER MD, Ot Z87.891 PERSONAL HISTORY OF NICOTINE DEPENDENCE 08/15/2016 WALT GEIGER MD, Ot C50.111 MALIGNANT NEOPLASM OF CENTRAL PORTION OF 08/15/2016 WALT GEIGER MD, Ot E27.9 DISORDER OF ADRENAL GLAND, UNSPECIFIED 08/15/2016 WALT GEIGER MD Ot K76.9 LIVER DISEASE, UNSPECIFIED 08/15/2016 WALT GEIGER MD, Ot K86.89 OTHER SPECIFIED DISEASES OF PANCREAS 08/15/2016 WALT GEIGER MD Ot N28.89 OTHER SPECIFIED DISORDERS OF KIDNEY AND 08/15/2016 WALT GEIGER MD, Ot C50.111 MALIGNANT NEOPLASM OF CENTRAL PORTION OF 08/15/2016 WALT GEIGER MD, Ot E27.9 DISORDER OF ADRENAL GLAND, UNSPECIFIED 08/15/2016 WALT GEIGER MD, Ot K76.9 LIVER DISEASE, UNSPECIFIED 08/15/2016 WALT GEIGER MD Ot K86.89 OTHER SPECIFIED DISEASES OF PANCREAS 08/15/2016 WALT GEIGER MD Ot N28.89 OTHER SPECIFIED DISORDERS OF KIDNEY AND 08/18/2016 WALT GEIGER MD, Ot C50.111 MALIGNANT NEOPLASM OF CENTRAL PORTION OF 08/18/2016 WALT GEIGER MD Ot E11.9 TYPE 2 DIABETES MELLITUS WITHOUT COMPLIC 08/18/2016 WALT GEIGER MD Ot I10 ESSENTIAL (PRIMARY) HYPERTENSION 08/18/2016 WALT GEIGER MD, Ot 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 08/18/2016 WALT GEIGER MD, Ot J44.9 CHRONIC OBSTRUCTIVE PULMONARY DISEASE, U 08/18/2016 WALT GEIGER MD, Ot M17.0 BILATERAL PRIMARY OSTEOARTHRITIS OF KNEE 08/18/2016 WALT GEIGER MD, Ot Z79.02 MORTAR WORKER (CURRENT) USE OF ANTITHROMBOTI 08/18/2016 WALT GEIGER MD, Ot Z79.82 PRISON (CURRENT) USE OF ASPIRIN 08/18/2016 WALT GEIGER MD, Ot Z87.891 PERSONAL HISTORY OF NICOTINE DEPENDENCE 08/20/2016 ALEXANDRU CASAS MD Ot N63 UNSPECIFIED LUMP IN BREAST 08/20/2016 ALEXANDRU CASAS MD Ot R92.8 OTH ABN AND INCONCLUSIVE FINDINGS ON DX 08/20/2016 WALT GEIGER MD, Ot C50.411 MALIG NEOPLM OF UPPER-OUTER QUADRANT OF 08/20/2016 WALT GEIGER MD Ot N28.89 OTHER SPECIFIED DISORDERS OF KIDNEY AND 08/20/2016 WALT GEIGER MD Ot R19.00 INTRA-ABD AND PELVIC SWELLING, MASS AND 08/20/2016 WALT GEIGER MD Ot R59.0 LOCALIZED ENLARGED LYMPH NODES 08/20/2016 WALT GEIGER MD Ot R91.1 SOLITARY PULMONARY NODULE 08/26/2016 ALEXANDRU CASAS MD Ot N63 UNSPECIFIED LUMP IN BREAST 08/26/2016 ALEXANDRU CASSA MD Ot R92.8 OTH ABN AND INCONCLUSIVE FINDINGS ON DX 08/26/2016 WALT GEIGER MD, Ot C50.411 MALIG NEOPLM OF UPPER-OUTER QUADRANT OF 08/26/2016 WALT GEIGER MD Ot N28.89 OTHER SPECIFIED DISORDERS OF KIDNEY AND 08/26/2016 WALT GEIGER MD Ot R19.00 INTRA-ABD AND PELVIC SWELLING, MASS AND 08/26/2016 WALT GEIGER MD Ot R59.0 LOCALIZED ENLARGED LYMPH NODES 08/26/2016 WALT GEIGER MD Ot R91.1 SOLITARY PULMONARY NODULE 09/04/2016 WALT GEIGER MD Ot C50.111 MALIGNANT NEOPLASM OF CENTRAL PORTION OF 09/04/2016 WALT GEIGER MD Ot E27.9 DISORDER OF ADRENAL GLAND, UNSPECIFIED 09/04/2016 WALT GEIGER MD Ot K76.9 LIVER DISEASE, UNSPECIFIED 09/04/2016 WALT GEIGER MD Ot K86.89 OTHER SPECIFIED DISEASES OF PANCREAS 09/04/2016 WALT GEIGER MD Ot N28.89 OTHER SPECIFIED DISORDERS OF KIDNEY AND 09/09/2016 WALT GEIGER MD, Ot C50.111 MALIGNANT NEOPLASM OF CENTRAL PORTION OF 09/09/2016 WALT GEIGER MD Ot E27.9 DISORDER OF ADRENAL GLAND, UNSPECIFIED 09/09/2016 WALT GEIGER MD Ot K76.9 LIVER DISEASE, UNSPECIFIED 09/09/2016 WALT GEIGER MD Ot K86.89 OTHER SPECIFIED DISEASES OF PANCREAS 09/09/2016 WALT GEIGER MD, Ot N28.89 OTHER SPECIFIED DISORDERS OF KIDNEY AND 09/30/2016 WALT GEIGER MD, Ot C50.111 MALIGNANT NEOPLASM OF CENTRAL PORTION OF 09/30/2016 WALT GEIGER MD, Ot E11.9 TYPE 2 DIABETES MELLITUS WITHOUT COMPLIC 09/30/2016 WALT GEIGER MD Ot I10 ESSENTIAL (PRIMARY) HYPERTENSION 09/30/2016 WALT GEIGER MD, Ot 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 09/30/2016 WALT GEIGER MD, Ot J44.9 CHRONIC OBSTRUCTIVE PULMONARY DISEASE, U 09/30/2016 WALT GEIGER MD, Ot M17.0 BILATERAL PRIMARY OSTEOARTHRITIS OF KNEE 09/30/2016 WALT GEIGER MD, Ot Z79.02 MORTAR WORKER (CURRENT) USE OF ANTITHROMBOTI 09/30/2016 WALT GEIGER MD, Ot Z79.82 PRISON (CURRENT) USE OF ASPIRIN 09/30/2016 WALT GEIGER MD, Ot Z87.891 PERSONAL HISTORY OF NICOTINE DEPENDENCE 10/06/2016 WALT GEIGER MD, Ot C50.111 MALIGNANT NEOPLASM OF CENTRAL PORTION OF 10/06/2016 WALT GEIGER MD, Ot E11.9 TYPE 2 DIABETES MELLITUS WITHOUT COMPLIC 10/06/2016 WALT GEIGER MD Ot I10 ESSENTIAL (PRIMARY) HYPERTENSION 10/06/2016 WALT GEIGER MD Ot 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 10/06/2016 WALT GEIGER MD, Ot J44.9 CHRONIC OBSTRUCTIVE PULMONARY DISEASE, U 10/06/2016 WALT GEIGRE MD Ot M17.0 BILATERAL PRIMARY OSTEOARTHRITIS OF KNEE 10/06/2016 WALT GEIGER MD Ot Z79.02 PRISON (CURRENT) USE OF ANTITHROMBOTI 10/06/2016 WALT GEIGER MD Ot Z79.82 PRISON (CURRENT) USE OF ASPIRIN 10/06/2016 WALT GEIGER MD Ot Z87.891 PERSONAL HISTORY OF NICOTINE DEPENDENCE 11/12/2016 WALT GEIGER MD, Ot C50.111 MALIGNANT NEOPLASM OF CENTRAL PORTION OF 11/12/2016 WALT GEIGER MD, Ot C50.111 MALIGNANT NEOPLASM OF CENTRAL PORTION OF 11/13/2016 WALT GEIGER MD, Ot C50.111 MALIGNANT NEOPLASM OF CENTRAL PORTION OF 11/13/2016 WALT GEIGER MD, Ot E11.9 TYPE 2 DIABETES MELLITUS WITHOUT COMPLIC 11/13/2016 WALT GEIGER MD, Ot I10 ESSENTIAL (PRIMARY) HYPERTENSION 11/13/2016 WALT GEIGER MD, Ot 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 11/13/2016 WALT GEIGER MD, Ot J44.9 CHRONIC OBSTRUCTIVE PULMONARY DISEASE, U 11/13/2016 WALT GEIGER MD, Ot M17.0 BILATERAL PRIMARY OSTEOARTHRITIS OF KNEE 11/13/2016 WALT GEIGER MD, Ot Z79.02 PRISON (CURRENT) USE OF ANTITHROMBOTI 11/13/2016 WALT GEIGER MD, Ot Z79.82 MORTAR WORKER (CURRENT) USE OF ASPIRIN 11/13/2016 WALT GEIGER MD, Ot Z87.891 PERSONAL HISTORY OF NICOTINE DEPENDENCE 11/13/2016 WALT GEIGER MD, Ot C50.111 MALIGNANT NEOPLASM OF CENTRAL PORTION OF 11/13/2016 WALT GEIGER MD, Ot C50.111 MALIGNANT NEOPLASM OF CENTRAL PORTION OF 11/13/2016 WALT GEIGER MD, Ot C50.111 MALIGNANT NEOPLASM OF CENTRAL PORTION OF 11/13/2016 WALT GEIGER MD, Ot C50.111 MALIGNANT NEOPLASM OF CENTRAL PORTION OF 11/13/2016 WALT GEIGER MD, Ot C50.111 MALIGNANT NEOPLASM OF CENTRAL PORTION OF 11/17/2016 WALT GEIGER MD, Ot C50.111 MALIGNANT NEOPLASM OF CENTRAL PORTION OF 11/18/2016 WALT GEIGER MD, Ot C50.111 MALIGNANT NEOPLASM OF CENTRAL PORTION OF 11/18/2016 WALT GEIGER MD, Ot E11.9 TYPE 2 DIABETES MELLITUS WITHOUT COMPLIC 11/18/2016 WALT GEIGER MD, Ot I10 ESSENTIAL (PRIMARY) HYPERTENSION 11/18/2016 WALT GEIGER MD, Ot 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 11/18/2016 WALT GEIGER MD, Ot J44.9 CHRONIC OBSTRUCTIVE PULMONARY DISEASE, U 11/18/2016 XUN MD, GUTIERREZ-CAMI Ot M17.0 BILATERAL PRIMARY OSTEOARTHRITIS OF KNEE 11/18/2016 WALT GEIGER MD, Ot Z79.02 MORTAR WORKER (CURRENT) USE OF ANTITHROMBOTI 11/18/2016 WALT GEIGER MD, Ot Z79.82 PRISON (CURRENT) USE OF ASPIRIN 11/18/2016 WALT GEIGER MD, Ot Z87.891 PERSONAL HISTORY OF NICOTINE DEPENDENCE 12/11/2016 WALT GEIGER MD, Ot C50.111 MALIGNANT NEOPLASM OF CENTRAL PORTION OF 12/15/2016 WILLAM KO MD Ot E78.2 MIXED HYPERLIPIDEMIA 12/15/2016 WILLAM KO MD Ot E78.2 MIXED HYPERLIPIDEMIA 12/16/2016 WALT GEIGER MD, Ot C50.111 MALIGNANT NEOPLASM OF CENTRAL PORTION OF 12/16/2016 WILLAM KO MD Ot E78.2 MIXED HYPERLIPIDEMIA 12/26/2016 WALT GEIGRE MD, Ot C50.111 MALIGNANT NEOPLASM OF CENTRAL PORTION OF 12/26/2016 WALT GEIGER MD, Ot E11.9 TYPE 2 DIABETES MELLITUS WITHOUT COMPLIC 12/26/2016 WALT GEIGER MD Ot I10 ESSENTIAL (PRIMARY) HYPERTENSION 12/26/2016 WALT GEIGER MD Ot 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 12/26/2016 WALT GEIGER MD, Ot J44.9 CHRONIC OBSTRUCTIVE PULMONARY DISEASE, U 12/26/2016 WALT GEIGER MD, Ot M17.0 BILATERAL PRIMARY OSTEOARTHRITIS OF KNEE 12/26/2016 WALT GEIGER MD, Ot Z79.02 MORTAR WORKER (CURRENT) USE OF ANTITHROMBOTI 12/26/2016 WALT GEIGER MD, Ot Z79.82 PRISON (CURRENT) USE OF ASPIRIN 12/26/2016 WALT GEIGER MD, Ot Z87.891 PERSONAL HISTORY OF NICOTINE DEPENDENCE 12/31/2016 WALT GEIGER MD, Ot C50.111 MALIGNANT NEOPLASM OF CENTRAL PORTION OF 12/31/2016 WALT GEIGER MD, Ot E11.9 TYPE 2 DIABETES MELLITUS WITHOUT COMPLIC 12/31/2016 WALT GEIGER MD Ot I10 ESSENTIAL (PRIMARY) HYPERTENSION 12/31/2016 WALT GEIGER MD Ot 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 12/31/2016 WALT GEIGER MD, Ot J44.9 CHRONIC OBSTRUCTIVE PULMONARY DISEASE, U 12/31/2016 WALT GEIGER MD, Ot M17.0 BILATERAL PRIMARY OSTEOARTHRITIS OF KNEE 12/31/2016 WALT GEIGER MD, Ot Z79.02 MORTAR WORKER (CURRENT) USE OF ANTITHROMBOTI 12/31/2016 WALT GEIGER MD, Ot Z79.82 MORTAR WORKER (CURRENT) USE OF ASPIRIN 12/31/2016 WALT GEIGER MD, Ot Z87.891 PERSONAL HISTORY OF NICOTINE DEPENDENCE 01/06/2017 WILLAM KO MD, Ot E78.2 MIXED HYPERLIPIDEMIA 01/07/2017 WALT GEIGER MD, Ot C50.111 MALIGNANT NEOPLASM OF CENTRAL PORTION OF 01/07/2017 WALT GEIGER MD, Ot E11.9 TYPE 2 DIABETES MELLITUS WITHOUT COMPLIC 01/07/2017 WALT GEIGER MD, Ot I10 ESSENTIAL (PRIMARY) HYPERTENSION 01/07/2017 WALT GEIGER MD, Ot 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 01/07/2017 WALT GEIGER MD, Ot J44.9 CHRONIC OBSTRUCTIVE PULMONARY DISEASE, U 01/07/2017 WALT GEIGER MD, Ot M17.0 BILATERAL PRIMARY OSTEOARTHRITIS OF KNEE 01/07/2017 WALT GEIGER MD, Ot Z79.02 MORTAR WORKER (CURRENT) USE OF ANTITHROMBOTI 01/07/2017 WALT GEIGER MD, Ot Z79.82 PRISON (CURRENT) USE OF ASPIRIN 01/07/2017 WALT GEIGER MD, Ot Z87.891 PERSONAL HISTORY OF NICOTINE DEPENDENCE 01/09/2017 WILLAM KO MD Ot E78.2 MIXED HYPERLIPIDEMIA 01/19/2017 BARBARA HAWTHORNE MD, Ot C50.911 MALIGNANT NEOPLASM OF UNSP SITE OF RIGHT 01/19/2017 BARBARA HAWTHORNE MD Ot Z01.818 ENCOUNTER FOR OTHER PREPROCEDURAL EXAMIN 01/19/2017 BARBARA HAWTHORNE MD Ot Z11.2 ENCOUNTER FOR SCREENING FOR OTHER BACTER 01/20/2017 BARBARA HAWTHORNE MD, Ot C50.911 MALIGNANT NEOPLASM OF UNSP SITE OF RIGHT 01/20/2017 BARBARA HAWTHORNE MD Ot Z01.818 ENCOUNTER FOR OTHER PREPROCEDURAL EXAMIN 01/20/2017 KIDO MD, TAKAAKI Ot Z11.2 ENCOUNTER FOR SCREENING FOR OTHER BACTER 01/22/2017 ALEXANDRU CASAS MD Ot V76.12 OTH SCREEN MAMMO-MALIGN NEOPLASM OF [place] 01/22/2017 ALEX PITT Ot 272.4 HYPERLIPIDEMIA NEC/NOS 01/22/2017 ALEX PITT Ot 401.9 HYPERTENSION NOS 01/22/2017 ALEX PITT Ot 414.00 CORON ATHEROSCLER NOS TYPE VESSEL, NATIV 01/22/2017 ALEX PITT Ot 433.10 CAROTID ARTERY OCCLUSION W O CEREBRAL IN 01/22/2017 ALEXANDRU CASAS MD, Ot V76.12 OTH SCREEN MAMMO-MALIGN NEOPLASM OF [place] 01/22/2017 KELSIE COOLEY MD Ot 414.00 CORON ATHEROSCLER NOS TYPE VESSEL, NATIV 01/22/2017 KELSIE COOLEY MD Ot V45.81 AORTOCORONARY BYPASS 01/22/2017 ALEX PITT Ot 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 01/22/2017 ALEX PITT Ot R06.02 SHORTNESS OF BREATH 01/22/2017 ALEXANDRU CASAS MD Ot Z13.820 ENCOUNTER FOR SCREENING FOR OSTEOPOROSIS 01/22/2017 AKASH SILVERMAN DO Ot J44.9 CHRONIC OBSTRUCTIVE PULMONARY DISEASE, U 01/22/2017 ALEX PITT Ot E78.2 MIXED HYPERLIPIDEMIA 01/22/2017 ALEX PITT Ot I10 ESSENTIAL (PRIMARY) HYPERTENSION 01/22/2017 ALEX PITT Ot 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 01/22/2017 ALEX PITT Ot I65.23 OCCLUSION AND STENOSIS OF BILATERAL [place] 01/22/2017 ALEXANDRU CASAS MD Ot N64.89 OTHER SPECIFIED DISORDERS OF BREAST 01/22/2017 ALEXANDRU CASAS MD Ot Z12.31 ENCNTR SCREEN MAMMOGRAM FOR MALIGNANT NE 01/22/2017 ALEXANDRU CASAS MD Ot R92.8 OTH ABN AND INCONCLUSIVE FINDINGS ON DX 01/22/2017 CASAS MD, ALEXANDRU L Ot N63 UNSPECIFIED LUMP IN BREAST 01/22/2017 YESSENIA DAVID, ALEXANDRU Nyoola Ot R92.8 OTH ABN AND INCONCLUSIVE FINDINGS ON DX 01/22/2017 WALT GEIGER MD, Ot C50.411 MALIG NEOPLM OF UPPER-OUTER QUADRANT OF 01/22/2017 WALT GEIGER MD, Ot N28.89 OTHER SPECIFIED DISORDERS OF KIDNEY AND 01/22/2017 WALT GEIGER MD Ot R19.00 INTRA-ABD AND PELVIC SWELLING, MASS AND 01/22/2017 WALT GEIGER MD, Ot R59.0 LOCALIZED ENLARGED LYMPH NODES 01/22/2017 WALT GEIGER MD, Ot R91.1 SOLITARY PULMONARY NODULE 01/22/2017 WALT GEIGER MD, Ot C50.111 MALIGNANT NEOPLASM OF CENTRAL PORTION OF 01/22/2017 WALT GEIGER MD, Ot E27.9 DISORDER OF ADRENAL GLAND, UNSPECIFIED 01/22/2017 WALT GEIGER MD, Ot K76.9 LIVER DISEASE, UNSPECIFIED 01/22/2017 WALT GEIGER MD, Ot K86.89 OTHER SPECIFIED DISEASES OF PANCREAS 01/22/2017 WALT GEIGER MD, Ot N28.89 OTHER SPECIFIED DISORDERS OF KIDNEY AND 01/22/2017 WALT GEIGER MD, Ot C50.111 MALIGNANT NEOPLASM OF CENTRAL PORTION OF 01/22/2017 WALT GEIGER MD, Ot C50.111 MALIGNANT NEOPLASM OF CENTRAL PORTION OF 01/22/2017 WALT GEIGER MD Ot E11.9 TYPE 2 DIABETES MELLITUS WITHOUT COMPLIC 01/22/2017 WALT GEIGER MD Ot I10 ESSENTIAL (PRIMARY) HYPERTENSION 01/22/2017 WALT GEIGER MD, Ot 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 01/22/2017 WALT GEIGER MD, Ot J44.9 CHRONIC OBSTRUCTIVE PULMONARY DISEASE, U 01/22/2017 WALT GEIGER MD, Ot M17.0 BILATERAL PRIMARY OSTEOARTHRITIS OF [place]NEE 01/22/2017 WALT GEIGER MD, Ot Z79.02 PRISON (CURRENT) USE OF ANTITHROMBOTI 01/22/2017 WALT GEIGER MD, Ot Z79.82 PRISON (CURRENT) USE OF ASPIRIN 01/22/2017 WALT GEIGER MD, Ot Z87.891 PERSONAL HISTORY OF NICOTINE DEPENDENCE 01/22/2017 MAIKEL DAVID, WILLAM Gonzalez Ot E78.2 MIXED HYPERLIPIDEMIA 01/22/2017 YESSENIA DAVID, ALEXANDRU Noyola Ot 496 CHR AIRWAY OBSTRUCT NEC 01/22/2017 YESSENIA DAVID, ALEXANDRU Noyola Ot 799.02 HYPOXEMIA 01/22/2017 ALEXANDRU CASAS MD Ot V76.12 OTH SCREEN MAMMO-MALIGN NEOPLASM OF [place] 01/22/2017 ALEX PITT Ot 272.4 HYPERLIPIDEMIA NEC/NOS 01/22/2017 ALEX PITT Ot 396.3 MITRAL/AORTIC VALERIE INSUFF 01/22/2017 ALEX PITT Ot 397.0 TRICUSPID VALVE DISEASE 01/22/2017 ALEX PITT Ot 401.9 HYPERTENSION NOS 01/22/2017 ALEX PITT Ot 414.00 CORON ATHEROSCLER NOS TYPE VESSEL, NATIV 01/22/2017 CHRISTOPH DAVID, BARBARA Ot V72.84 EXAM PRE-OPERATIVE NOS 01/22/2017 ALEXANDRU CASAS MD Ot V76.12 OTH SCREEN MAMMO-MALIGN NEOPLASM OF [place] 01/22/2017 ALEX PITT Ot 272.4 HYPERLIPIDEMIA NEC/NOS 01/22/2017 ALEX PITT Ot 401.9 HYPERTENSION NOS 01/22/2017 ALEX PITT Ot 414.00 CORON ATHEROSCLER NOS TYPE VESSEL, NATIV 01/22/2017 ALEX PITT Ot 433.10 CAROTID ARTERY OCCLUSION W O CEREBRAL IN 01/22/2017 ALEXANDRU CASAS MD Ot V76.12 OTH SCREEN MAMMO-MALIGN NEOPLASM OF [place] 01/22/2017 KELSIE COOLEY MD Ot 414.00 CORON ATHEROSCLER NOS TYPE VESSEL, NATIV 01/22/2017 KELSIE COOLEY MD Ot V45.81 AORTOCORONARY BYPASS 01/22/2017 ALEX PITT Ot 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 01/22/2017 ALEX PITT Ot R06.02 SHORTNESS OF BREATH 01/22/2017 ALEXANDRU CASAS MD Ot Z13.820 ENCOUNTER FOR SCREENING FOR OSTEOPOROSIS 01/22/2017 AKASH SILVERMAN DO Ot J44.9 CHRONIC OBSTRUCTIVE PULMONARY DISEASE, U 01/22/2017 ALEX PITT Ot E78.2 MIXED HYPERLIPIDEMIA 01/22/2017 ALEX PITT Ot I10 ESSENTIAL (PRIMARY) HYPERTENSION 01/22/2017 ALEX PITT Ot 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 01/22/2017 ALEX PITT Ot I65.23 OCCLUSION AND STENOSIS OF BILATERAL [place] 01/22/2017 ALEXANDRU CASAS MD, Ot N64.89 OTHER SPECIFIED DISORDERS OF BREAST 01/22/2017 ALEXANDRU CASAS MD, Ot Z12.31 ENCNTR SCREEN MAMMOGRAM FOR MALIGNANT NE 01/22/2017 ALEXANDRU CASAS MD, Ot R92.8 OTH ABN AND INCONCLUSIVE FINDINGS ON DX 01/22/2017 ALEXANDRU CASAS MD, Ot N63 UNSPECIFIED LUMP IN BREAST 01/22/2017 ALEXANDRU CASAS MD, Ot R92.8 OTH ABN AND INCONCLUSIVE FINDINGS ON DX 01/22/2017 WALT GEIGER MD Ot C50.411 MALIG NEOPLM OF UPPER-OUTER QUADRANT OF 01/22/2017 WALT GEIGER MD, Ot N28.89 OTHER SPECIFIED DISORDERS OF KIDNEY AND 01/22/2017 WALT GEIGER MD Ot R19.00 INTRA-ABD AND PELVIC SWELLING, MASS AND 01/22/2017 WALT GEIGER MD Ot R59.0 LOCALIZED ENLARGED LYMPH NODES 01/22/2017 WALT GEIGER MD Ot R91.1 SOLITARY PULMONARY NODULE 01/22/2017 WALT GEIGER MD Ot C50.111 MALIGNANT NEOPLASM OF CENTRAL PORTION OF 01/22/2017 WALT GEIGER MD Ot E27.9 DISORDER OF ADRENAL GLAND, UNSPECIFIED 01/22/2017 WALT GEIGER MD, Ot K76.9 LIVER DISEASE, UNSPECIFIED 01/22/2017 WALT GEIGER MD Ot K86.89 OTHER SPECIFIED DISEASES OF PANCREAS 01/22/2017 WALT GEIGER MD, Ot N28.89 OTHER SPECIFIED DISORDERS OF KIDNEY AND 01/22/2017 WALT GEIGER MD, Ot C50.111 MALIGNANT NEOPLASM OF CENTRAL PORTION OF 01/22/2017 WALT GEIGER MD, Ot C50.111 MALIGNANT NEOPLASM OF CENTRAL PORTION OF 01/22/2017 WALT GEIGER MD, Ot E11.9 TYPE 2 DIABETES MELLITUS WITHOUT COMPLIC 01/22/2017 WALT GEIGER MD, Ot I10 ESSENTIAL (PRIMARY) HYPERTENSION 01/22/2017 WALT GEIGER MD, Ot 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 01/22/2017 WALT GEIGER MD, Ot J44.9 CHRONIC OBSTRUCTIVE PULMONARY DISEASE, U 01/22/2017 WALT GEIGER MD, Ot M17.0 BILATERAL PRIMARY OSTEOARTHRITIS OF KNEE 01/22/2017 WALT GEIGER MD, Ot Z79.02 MORTAR WORKER (CURRENT) USE OF ANTITHROMBOTI 01/22/2017 WALT GEIGER MD, Ot Z79.82 PRISON (CURRENT) USE OF ASPIRIN 01/22/2017 WALT GEIGER MD, Ot Z87.891 PERSONAL HISTORY OF NICOTINE DEPENDENCE 01/22/2017 WILLAM KO MD Ot E78.2 MIXED HYPERLIPIDEMIA 01/25/2017 BARBARA HAWTHORNE MD, Ot C50.911 MALIGNANT NEOPLASM OF UNSP SITE OF RIGHT 01/25/2017 BARBARA HAWTHORNE MD, Ot Z01.818 ENCOUNTER FOR OTHER PREPROCEDURAL EXAMIN 01/25/2017 BARBARA HAWTHORNE MD, Ot Z11.2 ENCOUNTER FOR SCREENING FOR OTHER BACTER 01/26/2017 BARBARA HAWTHORNE MD, Ot C50.411 MALIG NEOPLM OF UPPER-OUTER QUADRANT OF 01/26/2017 BARBARA HAWTHORNE MD, Ot C64.2 MALIGNANT NEOPLASM OF LEFT KIDNEY, EXCEP 01/26/2017 BARBARA HAWTHORNE MD, Ot E11.9 TYPE 2 DIABETES MELLITUS WITHOUT COMPLIC 01/26/2017 BARBARA HAWTHORNE MD, Ot Z79.811 MORTAR WORKER (CURRENT) USE OF AROMATASE INH 01/26/2017 BARBARA HAWTHORNE MD, Ot Z79.84 MORTAR WORKER (CURRENT) USE OF ORAL HYPOGLYC Procedures Code Description Performed By Performed On 51.23 LAPAROSCOPIC CHOLECYSTECTOMY 07/07/2013 Results Test Result Range Complete blood count (CBC) with automated white blood cell (WBC) differential - 07/30/16 10:56 Blood leukocytes automated count (number/volume) 10.0 10*3/ uL 4.3-11.0 Blood erythrocytes automated count (number/volume) 3.90 10*6 /uL 4.35-5.85 Venous blood hemoglobin measurement (mass/volume) 10.7 g/dL 11.5-16.0 Blood hematocrit (volume fraction) 34 % 35-52 Automated erythrocyte mean corpuscular volume 86 [foz_us] 80-99 Automated erythrocyte mean corpuscular hemoglobin (mass per erythrocyte) 27 pg 25-34 Automated erythrocyte mean corpuscular hemoglobin concentration measurement ( mass/volume) 32 g/dL 32-36 Automated erythrocyte distribution width ratio 13.7 % 10.0-14.5 Automated blood platelet count (count/volume) 299 10*3/uL 130-400 Automated blood platelet mean volume measurement 10.1 [foz_ us] 7.4-10.4 Automated blood neutrophils/100 leukocytes 89 % 42-75 Automated blood lymphocytes/100 leukocytes 9 % 12-44 Blood monocytes/100 leukocytes 3 % 0-12 Automated blood eosinophils/100 leukocytes 0 % 0-10 Automated blood basophils/100 leukocytes 0 % 0-10 Blood neutrophils automated count (number/volume) 8.9 10*3 1.8-7.8 Blood lymphocytes automated count (number/volume) 0.9 10*3 1.0-4.0 Blood monocytes automated count (number/volume) 0.3 10*3 0.0-1.0 Automated eosinophil count 0.0 10*3/uL 0.0-0.3 Automated blood basophil count (count/volume) 0.0 10*3/uL 0.0-0.1 Comprehensive metabolic panel - 07/30/16 10:56 Serum or plasma sodium measurement (moles/volume) 138 mmol/ L 135-145 Serum or plasma potassium measurement (moles/volume) 5.3 mmol/L 3.6-5.0 Serum or plasma chloride measurement (moles/volume) 108 mmol /L 98-107 Carbon dioxide 25 mmol/L 21-32 Serum or plasma anion gap determination (moles/volume) 5 mmol/L 5-14 Serum or plasma urea nitrogen measurement (mass/volume) 24 mg/dL 7-18 Serum or plasma creatinine measurement (mass/volume) 1.10 mg /dL 0.60-1.30 Serum or plasma urea nitrogen/creatinine mass ratio 22 NRG Serum or plasma creatinine measurement with calculation of estimated glomerular filtration rate 50 NRG Serum or plasma glucose measurement (mass/volume) 280 mg/dL 70-105 Serum or plasma calcium measurement (mass/volume) 8.9 mg/dL 8.5-10.1 Serum or plasma total bilirubin measurement (mass/volume) 0.3 mg/dL 0.1-1.0 Serum or plasma alkaline phosphatase measurement (enzymatic activity/volume) 62 U/L 40-136 Serum or plasma aspartate aminotransferase measurement (enzymatic activity/ volume) 9 U/L 5-34 Serum or plasma alanine aminotransferase measurement (enzymatic activity/volume ) 10 U/L 0-55 Serum or plasma protein measurement (mass/volume) 6.5 g/dL 6.4-8.2 Serum or plasma albumin measurement (mass/volume) 3.9 g/dL 3.2-4.5 Cancer antigen 27-29 measurement - 07/30/16 10:56 Cancer antigen 27-29 measurement 17.9 u[iU]/mL 0.0-40.0 Lipid 1996 panel - 12/15/16 10:33 Serum or plasma triglyceride measurement (mass/volume) 140 mg/dL <150 Serum or plasma cholesterol measurement (mass/volume) 136 mg /dL < 200 Serum or plasma cholesterol in HDL measurement (mass/volume) 41 mg/dL 40-60 Cholesterol in LDL [mass/volume] in serum or plasma by direct assay 77 mg/dL 1-129 Serum or plasma cholesterol in VLDL measurement (mass/volume) 28 mg/dL 5-40 Methicillin resistant Staphylococcus aureus (MRSA) screening culture - 10:45 Methicillin resistant Staphylococcus aureus (MRSA) screening culture NEG NRG Capillary blood glucose measurement by glucometer (mass/volume) - 01/22/17 07: 02 Capillary blood glucose measurement by glucometer (mass/volume) 131 mg/dL 70-110 Complete blood count (CBC) with automated white blood cell (WBC) differential - 01/29/17 16:33 Blood leukocytes automated count (number/volume) 6.9 10*3/ uL 4.3-11.0 Blood erythrocytes automated count (number/volume) 3.61 10*6 /uL 4.35-5.85 Venous blood hemoglobin measurement (mass/volume) 9.6 g/dL 11.5-16.0 Blood hematocrit (volume fraction) 32 % 35-52 Automated erythrocyte mean corpuscular volume 89 [foz_us] 80-99 Automated erythrocyte mean corpuscular hemoglobin (mass per erythrocyte) 27 pg 25-34 Automated erythrocyte mean corpuscular hemoglobin concentration measurement ( mass/volume) 30 g/dL 32-36 Automated erythrocyte distribution width ratio 14.8 % 10.0-14.5 Automated blood platelet count (count/volume) 272 10*3/uL 130-400 Automated blood platelet mean volume measurement 10.0 [foz_ us] 7.4-10.4 Automated blood neutrophils/100 leukocytes 69 % 42-75 Automated blood lymphocytes/100 leukocytes 19 % 12-44 Blood monocytes/100 leukocytes 9 % 0-12 Automated blood eosinophils/100 leukocytes 4 % 0-10 Automated blood basophils/100 leukocytes 0 % 0-10 Blood neutrophils automated count (number/volume) 4.7 10*3 1.8-7.8 Blood lymphocytes automated count (number/volume) 1.3 10*3 1.0-4.0 Blood monocytes automated count (number/volume) 0.6 10*3 0.0-1.0 Automated eosinophil count 0.3 10*3/uL 0.0-0.3 Automated blood basophil count (count/volume) 0.0 10*3/uL 0.0-0.1 PT panel in platelet poor plasma by coagulation assay - 01/29/17 16:33 Prothrombin time (PT) in platelet poor plasma by coagulation assay 13.5 s 12.2-14.7 INR in platelet poor plasma or blood by coagulation assay 1.1 0.8-1.4 Comprehensive metabolic panel - 01/29/17 16:33 Serum or plasma sodium measurement (moles/volume) 140 mmol/ L 135-145 Serum or plasma potassium measurement (moles/volume) 5.7 mmol/L 3.6-5.0 Serum or plasma chloride measurement (moles/volume) 105 mmol /L 98-107 Carbon dioxide 30 mmol/L 21-32 Serum or plasma anion gap determination (moles/volume) 5 mmol/L 5-14 Serum or plasma urea nitrogen measurement (mass/volume) 26 mg/dL 7-18 Serum or plasma creatinine measurement (mass/volume) 1.31 mg /dL 0.60-1.30 Serum or plasma urea nitrogen/creatinine mass ratio 20 NRG Serum or plasma creatinine measurement with calculation of estimated glomerular filtration rate 40 NRG Serum or plasma glucose measurement (mass/volume) 170 mg/dL 70-105 Serum or plasma calcium measurement (mass/volume) 9.0 mg/dL 8.5-10.1 Serum or plasma total bilirubin measurement (mass/volume) 0.3 mg/dL 0.1-1.0 Serum or plasma alkaline phosphatase measurement (enzymatic activity/volume) 61 U/L 40-136 Serum or plasma aspartate aminotransferase measurement (enzymatic activity/ volume) 11 U/L 5-34 Serum or plasma alanine aminotransferase measurement (enzymatic activity/volume ) 13 U/L 0-55 Serum or plasma protein measurement (mass/volume) 6.5 g/dL 6.4-8.2 Serum or plasma albumin measurement (mass/volume) 3.7 g/dL 3.2-4.5 Serum or plasma troponin i.cardiac measurement (mass/volume) - 01/29/17 16:33 Serum or plasma troponin i.cardiac measurement (mass/volume) < ng/mL <0.30 Serum or plasma lithium measurement (moles/volume) - 01/29/17 16:33 BNP level 352.8 pg/mL <100.0 Encounters ACCT No. Visit Date/Time Discharge Status Pt. Type Provider Facility Loc./Unit Complaint [id number] 01/22/2017 06:40:00 2016 16:45:00 DIS Outpatient BARBARA HAWTHORNE MD [facility] RAD RIGHT BREAST CANCER [id number] 01/19/2017 10:03:00 2016 11:13:00 DIS Outpatient BARBARA HAWTHORNE MD [facility] PREOP RIGHT BREAST CANCER [id number] 10/13/2016 09:52:00 2016 00:01:00 DIS Outpatient WALT GEIGER MD [facility] ONC [id number] 08/01/2016 09:39:00 2015 14:22:00 DIS Outpatient WALT GEIGER MD [facility] ONC [id number] 04/23/2016 06:48:00 2015 14:00:00 DIS Outpatient WILLAM KO MD [facility] CATH ABN STRESS TEST,CP,CAD,HTN [id number] 04/09/2016 07:22:00 2015 14:30:00 DIS Outpatient WILLAM KO MD [facility] CR SATUS POST ACBX3 [id number]; STABLE ANGINA [id number] 04/04/2016 11:49:00 2015 00:01:00 DIS Outpatient WILLAM KO MD [facility] CR SATUS POST ACBX3 [id number]; STABLE ANGINA [id number] 09/12/2015 11:47:00 2014 23:59:59 CLS Outpatient ALEX PITT [facility] RAD SOB,CAD [id number] 07/30/2015 10:30:00 2014 23:59:59 CLS Outpatient KELSIE COOLEY MD [facility] HH POST CABG X 3 [id number] 07/11/2015 12:51:00 2014 13:20:00 DIS Outpatient WILLAM KO MD [facility] CATH ABNORMAL STRESS CAD HTN HLD [id number] 07/03/2015 11:59:00 2014 23:59:59 CLS Outpatient ALEX PITT [facility] CARD CAD,HTN,HLN [id number] 07/03/2015 09:06:00 2014 23:59:59 CLS Outpatient ALEXANDRU CASAS MD [facility] RAD SCREENING [id number] 07/05/2014 07:24:00 2013 10:35:00 DIS Outpatient BARBARA HAWTHORNE MD [facility] SDC HISTORY ANEMIA [id number] 06/30/2014 08:32:00 2013 23:59:59 CLS Outpatient ALEXANDRU CASAS MD [facility] RAD ROUTINE [id number] 06/30/2014 08:29:00 2013 23:59:59 CLS Outpatient ALEX PITT [facility] CARD CAD,HTN,HLP,CAROTID ARTERY STENOSIS [id number] 06/29/2014 10:00:00 2013 23:59:59 CLS Outpatient BARBARA HAWTHORNE MD [facility] PREOP HISTORY ANEMIA [id number] 08/02/2013 19:14:00 2012 06:10:00 DIS Outpatient ALEXANDRU CASAS MD [facility] SLEEP SNORING,EXCESSIVE DAYTIME SLEEPINESS,OBSERVED APNE [id number] 07/10/2013 10:55:00 2012 17:05:00 DIS Inpatient SALGADO , BHAVANA Solomon [facility] 4TH COPD [id number] 07/06/2013 17:46:00 2012 17:55:00 DIS Inpatient BARBARA HAWTHORNE MD [facility] SURGICAL RUQ PAIN,CHOLECYSTITIS,CHOLELITHOSIS, UTI [id number] 06/22/2013 08:50:00 2012 23:59:59 CLS Outpatient ALEXANDRU CASAS MD [facility] RAD SCREENING,HYPOXIA/COPD [id number] 01/29/2017 16:57:00 Document Registration [id number] 01/12/2017 09:34:00 ACT Outpatient BRENDA GEIGER MD [facility] ONC [id number] 12/15/2016 12:07:00 ACT Outpatient WILLAM KO MD [facility] LAB [id number] 11/11/2016 08:00:00 ACT Outpatient BRENDA GEIGER MD [facility] RAD BREAST CA [id number] 08/14/2016 08:22:00 ACT Outpatient BRENDA GEIGER MD [facility] RAD BREAST CANCER,RENAL MASS [id number] 07/30/2016 10:38:00 ACT Outpatient BRENDA GEIGER MD [facility] RAD BREAST CA [id number] 07/15/2016 09:39:00 ACT Outpatient ALEXANDRU CASAS MD [facility] RAD ABNORMAL MAMMO [id number] 07/11/2016 07:59:00 ACT Outpatient ALEXANDRU CASAS MD [facility] RAD ABNORMAL MAMMO [id number] 07/08/2016 09:55:00 ACT Outpatient ALEXANDRU CASAS MD [facility] RAD SCREENING [id number] 03/26/2016 07:38:00 ACT Outpatient ANGELA LOREDO, ALEX Solomon [facility] CARD CAD,CAROTID ARTERY STENOSIS,HTN,HLP [id number] 02/11/2016 14:39:00 ACT Outpatient AKASH SILVERMAN DO [facility] RT COPD [id number] 12/13/2015 08:25:00 ACT Outpatient ALEXANDRU CASAS MD [facility] RAD SCREENING OSTEOPOROSIS [id number] 11/21/2015 11:44:00 ACT Outpatient MAIKEL DAVID, WILLAM Gonzalez [facility] CR SATUS POST [id number]; STABLE ANGINA [id number]
== END 2017-01-29 18:16 | disposition home or self-care (01) ==
LOC: EDUNIT# 15:48 → ER 15:50
DX: J44.1 Chronic obstructive pulmonary disease with (acute) exacerbation (principal); I11.0 Hypertensive heart disease with heart failure; E11.9 Type 2 diabetes mellitus without complications; Z79.84 Long term (current) use of oral hypoglycemic drugs; Z79.4 Long term (current) use of insulin; Z79.02 Long term (current) use of antithrombotics/antiplatelets; Z79.899 Other long term (current) drug therapy; Z95.1 Presence of aortocoronary bypass graft; Z99.81 Dependence on supplemental oxygen
CPT/HCPCS: 36415; 71010; 80053; 83880; 84484; 85025; 85610; 94640

== ENCOUNTER 2017-02-09 10:50 | Outpatient (RCR) | payer MEDICARE, MEDICAID ==
--- OUTSIDE RECORDS SUMMARY | 2016-11-17 10:08 | XMS REPORT | Continuity of Care Document ---
Author Author [facility] Organization [facility] Address Unknown Phone Unavailable Care Team Providers Care Wholesale Account Executive Name Role Phone Provider, Ordering PCP Unavailable Source Comments Some departments are not documenting in the electronic medical record. If you do not see the information that you expected, contact Release of Information in the Health Information Management department at [phone] for further assistance in locating additional records.[facility] Active Allergies and Adverse Reactions Allergen Noted Date Severity Reactions Comments Iodine 09/02/2016 Medium SHORTNESS OF BREATH Pcn 09/02/2016 Medium EDEMA Current Medications Prescription Sig. Disp. 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 Very complex medical hx w/ new [...] site, unspecified laterality (HCC) (Primary Dx) 09/25/2016 Hospital Radiology Ez Farley MD Encounter Yue [...] Telephone Oncology Ez Farley MD Navigation Assessment Social History Tobacco Use Types Packs/Day Years Used Date Former Smoker Smokeless Tobacco: Never Used Alcohol Use Drinks/Week oz/Week Comments No Last Filed Vital Signs Vital Sign Reading Time Taken Blood Pressure 141/95 09/25/2016 2:15 PM LAMINATION TECHNICIAN Pulse 74 09/25/2016 2:15 PM LAMINATION TECHNICIAN Temperature 36.7 C (98.1 F) 09/25/2016 8:37 AM LAMINATION TECHNICIAN Respiratory Rate 16 09/02/2016 9:31 AM CDT Height 1.524 m (5') 09/02/2016 9:31 AM CDT Weight 99.156 kg (218 lb 9.6 oz) 09/02/2016 9:31 AM CDT Body Mass Index 42.69 09/02/2016 9:31 AM CDT Oxygen Saturation 94% 09/25/2016 2:15 PM LAMINATION TECHNICIAN Plan of Care Date Type Specialty Providers Description 11/18/2016 Appointment Radiology Ez Farley MD [address] [place] [address] [phone] (Fax) 11/18/2016 Appointment Urology Ez Farley MD [address] [place] [address] [phone] (Fax) 11/18/2016 Appointment Anesthesiology Health Maintenance Due Date Last Done Comments Hepatitis C Screening 1950 Physical (Comprehensive) 1955 Exam Pertussis Vaccine 1959 Tetanus Vaccine 1965 Breast Cancer Screening 1988 Colorectal Cancer 1998 Screening Shingles Vaccine 2008 Osteoporosis Screening 2013 Prevnar/Pneumovax (#1) 2013 Influenza Vaccine 07/10/2016 Results from Last 3 Months SURGICAL PATHOLOGY (09/25/2016 10:47 AM) Component Value Range PATHOLOGY REPORT [facility] [email or web address] Brisa Mckeon MD, PhD, Director of Anatomic Pathology Department of Pathology and Laboratory Medicine [address] [place] [id number] Surgical Pathology Office: [phone] SURGICAL PATHOLOGY REPORT NAME: MURIEL SALGADO SURG PATH #: [id number] MR #: [id number] SPECIMEN CLASS: SR BILLING #: [id number] ALT ID #: LOCATION: DATE OF PROCEDURE: 09/25/2016 AGE: 65 SEX: F DATE RECEIVED: 09/25/2016 : 1950 TIME RECEIVED: 10:47 PHYSICIAN: EZ FARLEY DATE OF REPORT: 09/26/2016 COPY TO: DATE OF PRINTIN09/26/2016 ################################################## ###################### Final Diagnosis: A. 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 See comment. Comment: Pursuant to the Parking Cashier Program at the [facility] Pathology Department, selected slides from this [...] in this report. +++Electronically Signed Out By+++ 09/25/2016 Interpreted by: Tamir Lopez MD Resident 09/26/2016 ################################################## ###################### Material Received: A: Kidney Mass no protocol History: 65-year-old female with a clinical history of renal mass Gross Description: A. Received in formalin labeled "left kidney mass" is a 1.3 x 0.2 x 0.1 cm aggregate of cores of castellanos-red tissue. The specimen is entirely submitted in cassette A1. (jrz) [facility]09/25/2016 Melchor Sauer MD Resident CT GUIDE NEEDLE [...] cancer, left renal lesion seen on CT BIG DATA LEAD:Homero Branch M.D. (fellow) and Shahzad Horton M.D. [...] condition. Procedure Note Interface, Radiant Results - [facility] Sep 25, 2016 6:[address] GUIDED BIOPSY OF LEFT RENAL LESION CLINICAL HISTORY: Newly diagnosed breast cancer, left renal lesion seen on CT BIG DATA LEAD: Homero Branch M.D. (fellow) and Shahzad Horton [...]
[2016-12-15 10:36] LABS: BASOPHILS % (AUTO) 0 % (0-10); EOSINOPHILS # (AUTO) 0.1 10^3/uL (0.0-0.3); EOSINOPHILS % (AUTO) 2 % (0-10); LYMPHOCYTES # (AUTO) 1.2 X 10^3 (1.0-4.0); LYMPHOCYTES % (AUTO) 15 % (12-44); MEAN CORPUSCULAR HEMOGLOBIN 27 PG (25-34); MEAN CORPUSCULAR HGB CONC 31 G/DL (32-36); MEAN CORPUSCULAR VOLUME 86 FL (80-99); MEAN PLATELET VOLUME 9.1 FL (7.4-10.4); MONOCYTES # (AUTO) 0.5 X 10^3 (0.0-1.0); MONOCYTES % (AUTO) 7 % (0-12); NEUTROPHILS # (AUTO) 6.1 X 10^3 (1.8-7.8); NEUTROPHILS % (AUTO) 76 % (42-75); PLATELET COUNT 269 10^3/uL (130-400); RED BLOOD COUNT 3.75 10^6/uL (4.35-5.85); RED CELL DISTRIBUTION WIDTH 14.2 % (10.0-14.5)
[2016-12-15 11:21] LABS: ALBUMIN 3.6 G/DL (3.2-4.5); BILIRUBIN,TOTAL 0.3 MG/DL (0.1-1.0); CALCIUM 9.3 MG/DL (8.5-10.1); CREATININE SERUM 1.06 MG/DL (0.60-1.30); POTASSIUM 4.7 MMOL/L (3.6-5.0); TOTAL PROTEIN 6.3 G/DL (6.4-8.2)
[~2017-02-09 10:50] MED LIST changes: +AZIT250T5 PO; +CEFD300C3 PO
== END 2017-02-15 | disposition home or self-care (01) ==
LOC: ONC 10:50
PROVIDERS: ATTEND Internal Medicine Hematology & Oncology
DX: C50.111 Malignant neoplasm of central portion of right female breast (principal); N61.0 Mastitis without abscess; C64.2 Malignant neoplasm of left kidney, except renal pelvis; D64.9 Anemia, unspecified; D35.02 Benign neoplasm of left adrenal gland; K76.9 Liver disease, unspecified; K86.9 Disease of pancreas, unspecified; J44.9 Chronic obstructive pulmonary disease, unspecified; I25.10 Atherosclerotic heart disease of native coronary artery without angina pectoris; I10 Essential (primary) hypertension; E11.9 Type 2 diabetes mellitus without complications; M17.0 Bilateral primary osteoarthritis of knee; Z17.0 Estrogen receptor positive status [ER+]; Z87.891 Personal history of nicotine dependence; Z79.02 Long term (current) use of antithrombotics/antiplatelets; Z79.82 Long term (current) use of aspirin; Z79.811 Long term (current) use of aromatase inhibitors; Z95.1 Presence of aortocoronary bypass graft
CPT/HCPCS: 80053; 82728; 83540; 85025; 99213; 99214

== ENCOUNTER → 2017-02-26 | Outpatient (CLI) | payer MEDICARE, MEDICAID ==
--- NOTE | 2017-02-26 14:48 | Diagnostic Imaging Report ---
INDICATION: Left leg pain. Left leg venous Doppler study was performed in the routine fashion with color flow Doppler and waveform analysis. FINDINGS: The left common femoral vein, superficial femoral vein, popliteal vein and visualized portion of the posterior tibial vein show normal compressibility and venous flow patterns. There is normal augmentation. IMPRESSION: No evidence of deep vein thrombosis of the major veins of the left leg. Dictated by: Dictated on workstation # [id number]
== END ==
LOC: RAD 14:21
PROVIDERS: ATTEND Family Medicine
DX: R60.0 Localized edema (principal); M79.662 Pain in left lower leg

== ENCOUNTER 2017-05-29 08:08 | Outpatient (RCR) | payer MEDICARE, MEDICAID ==
[2017-03-02 09:18] LABS: BASOPHILS % (AUTO) 0 % (0-10); EOSINOPHILS # (AUTO) 0.2 10^3/uL (0.0-0.3); EOSINOPHILS % (AUTO) 2 % (0-10); LYMPHOCYTES # (AUTO) 1.9 X 10^3 (1.0-4.0); LYMPHOCYTES % (AUTO) 25 % (12-44); MEAN CORPUSCULAR HEMOGLOBIN 26 PG (25-34); MEAN CORPUSCULAR HGB CONC 30 G/DL (32-36); MEAN CORPUSCULAR VOLUME 87 FL (80-99); MEAN PLATELET VOLUME 9.2 FL (7.4-10.4); MONOCYTES # (AUTO) 0.9 X 10^3 (0.0-1.0); MONOCYTES % (AUTO) 11 % (0-12); NEUTROPHILS # (AUTO) 4.6 X 10^3 (1.8-7.8); NEUTROPHILS % (AUTO) 61 % (42-75); PLATELET COUNT 233 10^3/uL (130-400); RED BLOOD COUNT 3.78 10^6/uL (4.35-5.85); WHITE BLOOD COUNT 7.5 10^3/uL (4.3-11.0)
[2017-03-02 09:50] LABS: ALBUMIN 3.7 G/DL (3.2-4.5); BILIRUBIN,TOTAL 0.3 MG/DL (0.1-1.0); CALCIUM 8.9 MG/DL (8.5-10.1); CREATININE SERUM 1.43 MG/DL (0.60-1.30); POTASSIUM 5.4 MMOL/L (3.6-5.0)
[2017-03-23 11:02] LABS: BASOPHILS % (AUTO) 0 % (0-10); EOSINOPHILS # (AUTO) 0.2 10^3/uL (0.0-0.3); EOSINOPHILS % (AUTO) 2 % (0-10); LYMPHOCYTES # (AUTO) 1.6 X 10^3 (1.0-4.0); LYMPHOCYTES % (AUTO) 23 % (12-44); MEAN CORPUSCULAR HEMOGLOBIN 25 PG (25-34); MEAN CORPUSCULAR HGB CONC 29 G/DL (32-36); MEAN CORPUSCULAR VOLUME 87 FL (80-99); MEAN PLATELET VOLUME 9.5 FL (7.4-10.4); MONOCYTES # (AUTO) 0.5 X 10^3 (0.0-1.0); MONOCYTES % (AUTO) 8 % (0-12); NEUTROPHILS # (AUTO) 4.6 X 10^3 (1.8-7.8); NEUTROPHILS % (AUTO) 67 % (42-75); PLATELET COUNT 274 10^3/uL (130-400); RED BLOOD COUNT 3.73 10^6/uL (4.35-5.85); RED CELL DISTRIBUTION WIDTH 15.2 % (10.0-14.5); RETICULOCYTE % 0.75 % (0.50-2.40); WHITE BLOOD COUNT 6.9 10^3/uL (4.3-11.0)
[2017-03-23 11:37] LABS: ALBUMIN 3.5 G/DL (3.2-4.5); BILIRUBIN,TOTAL 0.3 MG/DL (0.1-1.0); CALCIUM 9.3 MG/DL (8.5-10.1); CREATININE SERUM 1.03 MG/DL (0.60-1.30); POTASSIUM 5.1 MMOL/L (3.6-5.0); TOTAL PROTEIN 6.1 G/DL (6.4-8.2)
[2017-04-20 11:07] LABS: BASOPHILS % (AUTO) 0 % (0-10); EOSINOPHILS # (AUTO) 0.1 10^3/uL (0.0-0.3); EOSINOPHILS % (AUTO) 2 % (0-10); LYMPHOCYTES # (AUTO) 1.2 X 10^3 (1.0-4.0); LYMPHOCYTES % (AUTO) 19 % (12-44); MEAN CORPUSCULAR HEMOGLOBIN 26 PG (25-34); MEAN CORPUSCULAR HGB CONC 30 G/DL (32-36); MEAN CORPUSCULAR VOLUME 86 FL (80-99); MEAN PLATELET VOLUME 9.6 FL (7.4-10.4); MONOCYTES # (AUTO) 0.4 X 10^3 (0.0-1.0); MONOCYTES % (AUTO) 7 % (0-12); NEUTROPHILS # (AUTO) 4.6 X 10^3 (1.8-7.8); NEUTROPHILS % (AUTO) 72 % (42-75); PLATELET COUNT 263 10^3/uL (130-400); RED BLOOD COUNT 3.73 10^6/uL (4.35-5.85); RED CELL DISTRIBUTION WIDTH 15.3 % (10.0-14.5); WHITE BLOOD COUNT 6.4 10^3/uL (4.3-11.0)
[2017-04-20 11:37] LABS: ALBUMIN 3.7 G/DL (3.2-4.5); BILIRUBIN,TOTAL 0.2 MG/DL (0.1-1.0); CALCIUM 9.4 MG/DL (8.5-10.1); CREATININE SERUM 1.2 MG/DL (0.60-1.30); POTASSIUM 4.6 MMOL/L (3.6-5.0); TOTAL PROTEIN 6.7 G/DL (6.4-8.2)
[2017-05-19 08:55] LABS: BASOPHILS % (AUTO) 0 % (0-10); EOSINOPHILS # (AUTO) 0.2 10^3/uL (0.0-0.3); EOSINOPHILS % (AUTO) 3 % (0-10); LYMPHOCYTES % (AUTO) 17 % (12-44); MEAN CORPUSCULAR HEMOGLOBIN 26 PG (25-34); MEAN CORPUSCULAR HGB CONC 30 G/DL (32-36); MEAN CORPUSCULAR VOLUME 86 FL (80-99); MEAN PLATELET VOLUME 9.6 FL (7.4-10.4); MONOCYTES # (AUTO) 0.5 X 10^3 (0.0-1.0); MONOCYTES % (AUTO) 8 % (0-12); NEUTROPHILS # (AUTO) 4.4 X 10^3 (1.8-7.8); NEUTROPHILS % (AUTO) 72 % (42-75); PLATELET COUNT 278 10^3/uL (130-400); RED BLOOD COUNT 3.71 10^6/uL (4.35-5.85); RED CELL DISTRIBUTION WIDTH 15.1 % (10.0-14.5); WHITE BLOOD COUNT 6.1 10^3/uL (4.3-11.0)
[2017-05-19 09:41] LABS: ALBUMIN 3.6 GM/DL (3.2-4.5); BILIRUBIN,TOTAL 0.4 MG/DL (0.1-1.0); CALCIUM 9.4 MG/DL (8.5-10.1); CREATININE SERUM 1.08 MG/DL (0.60-1.30); POTASSIUM 5.3 MMOL/L (3.6-5.0); TOTAL PROTEIN 6.5 GM/DL (6.4-8.2)
== END 2017-05-31 | disposition home or self-care (01) ==
LOC: ONC 08:08
PROVIDERS: ATTEND Internal Medicine Hematology & Oncology
DX: Z51.0 Encounter for antineoplastic radiation therapy (principal); C50.111 Malignant neoplasm of central portion of right female breast; C77.3 Secondary and unspecified malignant neoplasm of axilla and upper limb lymph nodes; C64.2 Malignant neoplasm of left kidney, except renal pelvis; D64.9 Anemia, unspecified; J44.9 Chronic obstructive pulmonary disease, unspecified; I25.10 Atherosclerotic heart disease of native coronary artery without angina pectoris; I12.9 Hypertensive chronic kidney disease with stage 1 through stage 4 chronic kidney disease, or unspecified chronic kidney disease; E11.22 Type 2 diabetes mellitus with diabetic chronic kidney disease; N18.9 Chronic kidney disease, unspecified; M17.0 Bilateral primary osteoarthritis of knee; I70.1 Atherosclerosis of renal artery; E78.5 Hyperlipidemia, unspecified; Z87.891 Personal history of nicotine dependence; Z79.02 Long term (current) use of antithrombotics/antiplatelets; Z79.82 Long term (current) use of aspirin; Z17.0 Estrogen receptor positive status [ER+]; Z99.81 Dependence on supplemental oxygen; Z79.4 Long term (current) use of insulin; Z79.811 Long term (current) use of aromatase inhibitors
CPT/HCPCS: 36415; 77280; 77290; 77295; 77300; 77307; 77332; 77334; 77336; 77417; 80053; 82728; 83540; 85025; 85045; 86300; 99213

== ENCOUNTER 2017-06-12 13:25 | Emergency (ER) | payer MEDICARE, MEDICAID ==
[~2017-06-12] VITALS: Ht 152.4 cm; Wt 97.5 kg
[2017-06-12 13:49] LABS: BASOPHILS % (AUTO) 0 % (0-10); EOSINOPHILS # (AUTO) 0.2 10^3/uL (0.0-0.3); EOSINOPHILS % (AUTO) 4 % (0-10); LYMPHOCYTES # (AUTO) 0.9 X 10^3 (1.0-4.0); LYMPHOCYTES % (AUTO) 20 % (12-44); MEAN CORPUSCULAR HEMOGLOBIN 26 PG (25-34); MEAN CORPUSCULAR HGB CONC 30 G/DL (32-36); MEAN CORPUSCULAR VOLUME 88 FL (80-99); MEAN PLATELET VOLUME 9.8 FL (7.4-10.4); MONOCYTES # (AUTO) 0.4 X 10^3 (0.0-1.0); MONOCYTES % (AUTO) 10 % (0-12); NEUTROPHILS # (AUTO) 3.1 X 10^3 (1.8-7.8); NEUTROPHILS % (AUTO) 67 % (42-75); PLATELET COUNT 240 10^3/uL (130-400); RED BLOOD COUNT 3.49 10^6/uL (4.35-5.85); RED CELL DISTRIBUTION WIDTH 16.1 % (10.0-14.5); WHITE BLOOD COUNT 4.6 10^3/uL (4.3-11.0)
[2017-06-12 14:08] LABS: ALANINE AMINOTRANSFERASE 13 U/L (0-55); ALBUMIN 3.8 GM/DL (3.2-4.5); ANION GAP 10 MMOL/L (5-14); ASPARTATE AMINO TRANSFERASE 16 U/L (5-34); BILIRUBIN,TOTAL 0.4 MG/DL (0.1-1.0); BLOOD UREA NITROGEN 27 MG/DL (7-18); BUN/CREATININE RATIO 21; CALCIUM 9.4 MG/DL (8.5-10.1); CARBON DIOXIDE 22 MMOL/L (21-32); CHLORIDE 107 MMOL/L (98-107); CREATININE SERUM 1.27 MG/DL (0.60-1.30); GFR ESTIMATED 42; GLUCOSE 110 MG/DL (70-105); POTASSIUM 5.1 MMOL/L (3.6-5.0); SODIUM 139 MMOL/L (135-145); TOTAL PROTEIN 6.5 GM/DL (6.4-8.2)
[2017-06-12 14:13] LABS: TROPONIN I < 0.30 NG/ML (<0.30)
--- NOTE | 2017-06-12 14:23 | Diagnostic Imaging Report ---
INDICATION: Increased shortness of breath.. TECHNIQUE: Single view chest 1:56 PM. CORRELATION STUDY: 01/29/2017 FINDINGS: Poststernotomy changes. Heart size remains enlarged. Vasculature overall stable. Hilar prominence unchanged. Lung [place] somewhat hyperinflated with what appears to be likely chronic type changes. Prominent interstitial markings overall stable. No definitive superimposed infiltrate. IMPRESSION: 1. Poststernotomy changes. Heart size, mediastinum and vascular overall relatively stable. Likely chronic change lung parenchyma. Dictated by: Dictated on workstation # [id number]
--- NOTE | 2017-06-12 14:27 | ED Respiratory ---
General Chief Complaint: Respiratory Problems Stated Complaint: SOB,DIZZY,OCCASIONAL CP Nursing Triage Note: PT CO OF SOA WORSENING PAST WEEK Source: patient Exam Limitations: no limitations History of Present Illness Time seen by provider: 14:22 Initial Comments The patient is a 66-year-old white female who reports increasing dyspnea over the past week. She reports that she has COPD. She stopped smoking 15 years ago. She also has coronary artery disease and had a three-vessel bypass 2 and half to 3 years ago. She states that she was never told that she had had a heart attack. There has been no previous diagnosis of congestive heart failure. She has had fleeting episodes of chest pain over the past weeks. There has been no radiation or diaphoresis. Her feet swell but have done so chronically Timing/Duration: week, getting worse Prior Episodes/Possible Cause: no prior episodes Modifying Factors: Improves With Activity Associated Symptoms: denies symptoms Allergies and Home Medications Allergies Coded Allergies: Penicillins (Verified Allergy, Unknown, 02/17/07) morphine (Verified Adverse Reaction, Intermediate, NAUSEA VOMITING, ) I GAVE PT MORPHINE, SHE BECAME NAUSEATED ET VOMITED, SHE STATES, "I DID NOT KNOW YOU WERE GIVING ME MORPHINE, IT MAKES ME SICK!" Uncoded Allergies: statins (Adverse Reaction, Intermediate, 07/06/13) Home Medications Albuterol Sulfate 0.63 Mg/3 Ml Vial.neb, 0.63 MG IH PRN, (Reported) Anastrozole 1 Mg Tablet, 1 MG PO DAILY, (Reported) Aspirin 81 Mg Tablet.dr, 81 MG PO DAILY, (Reported) Benzonatate 100 Mg Capsule, 100 MG PO PRN, (Reported) Budesonide/Formoterol Fumarate 10.2 Gm Hfa.aer.ad, 2 PUFF IH BID PRN for SHORTNESS OF BREATH, (Reported) Carvedilol 12.5 Mg Tablet, 12.5 MG PO BID, (Reported) Cefdinir 300 Mg Capsule, 300 MG PO BID, #14 Prescribed by: LYLE TURNER on 01/29/17 1806 Clopidogrel Bisulfate 75 Mg Tablet, 75 MG PO DAILY, (Reported) Colesevelam HCl 625 Mg Tablet, 1,875 MG PO BID, (Reported) Diazepam 2 Mg Tablet, 2 MG PO PRN PRN for ANXIETY, (Reported) Docusate Sodium 100 Mg Capsule, 100 MG PO DAILY PRN for CONSTIPATION, (Reported) Fluticasone Propionate 16 Gm Naspr, 2 SPRAY NA HS PRN for CONGESTION, (Reported) Fluticasone/Vilanterol 1 Each Blst.w.dev, 1 EACH IH DAILY, (Reported) Gabapentin 300 Mg Capsule, 600 MG PO TID, (Reported) Hydrochlorothiazide 25 Mg Tab, 25 MG PO DAILY, (Reported) Hydrocodone/Acetaminophen 1 Each Tablet, 1 EACH PO Q4H PRN for PAIN, (Reported) Hydrocodone/Acetaminophen 1 Each Tablet, 1-2 EACH PO Q4H, #35 Prescribed by: BARBARA HAWTHORNE on 01/22/17 1414 Insulin Detemir 100 Unit/1 Ml Vial, 20 UNIT SQ HS, (Reported) Metformin HCl 1,000 Mg Tablet, 1,000 MG PO BID, (Reported) Montelukast Sodium 10 Mg Tablet, 10 MG PO HS, (Reported) [place]a 3 Polyunsat Fatty Acids 1,000 Mg Cap, 1,000 MG PO BID, (Reported) TAKES 2 (1000MG) CAPSULES Ondansetron 4 Mg Tab.rapdis, 4 MG PO PRN, (Reported) Prednisone 20 Mg Tab, 40 MG PO DAILY, #6 Prescribed by: LYLE TURNER on 01/29/17 1758 Sertraline Hcl 100 Mg Tablet, 100 MG PO DAILY, (Reported) Tolterodine Tartrate 2 Mg Tab, 2 MG PO BID, (Reported) [Legatrin Pm] , 1 TAB PO HS PRN for CRAMPS, (Reported) Constitutional: see HPI EENTM: no symptoms reported Respiratory: see HPI, cough, dyspnea on exertion, short of breath Cardiovascular: no symptoms reported Gastrointestinal: no symptoms reported Genitourinary: no symptoms reported Musculoskeletal: no symptoms reported Skin: no symptoms reported Psychiatric/Neurological: No Symptoms Reported Hematologic/Lymphatic: No Symptoms Reported Immunological/Allergic: no symptoms reported Other Recently completed radiation for right breast cancer with lumpectomy Past Pczqtpo-Fmvwta-Fipzyd Hx Patient Social History Alcohol Use: Denies Use Recreational Drug Use: No Smoking Status: Former Smoker Former Smoker/When Quit: Jul 11, 2003 Recent Foreign Travel: No Contact w/Someone Who Travel: No Recent Infectious Disease Expo: No Recent Hopitalizations: Yes Immunizations Up To Date Tetanus Booster (TDap): Less than 5yrs Date of Pneumonia Vaccine: Jul 15, 2015 Date of Influenza Vaccine: Aug 18, 2016 Seasonal Allergies Seasonal Allergies: No Surgeries HX Surgeries: Yes (KIDNEY ABLATION-FORM TUMOR, R TKR, THROAT X3, DENTAL, CATARACTS, RENAL STEN) Surgeries: CABG, Section, Gallbladder, Tubal Ligation Respiratory Hx Respiratory Disorders: Yes Respiratory Disorders: COPD Cardiovascular Hx Cardiac Disorders: Yes Cardiac Disorders: Coronary Artery Disease, High Cholesterol, Hypertension Neurological Hx Neurological Disorders: No Reproductive System Hx Reproductive Disorders: No Sexually Transmitted Disease: No HIV/AIDS: No Female Reproductive Disorders: Denies Genitourinary Hx Genitourinary Disorders: Yes (KIDNEY TUMOR) Gastrointestinal Hx Gastrointestinal Disorders: No Gastrointestinal Disorders: Gall Bladder Disease Musculoskeletal Hx Musculoskeletal Disorders: Yes (SCIATIC NERVE PAIN) Musculoskeletal Disorders: Arthritis Endocrine Hx Endocrine Disorders: Yes Endocrine Disorders: Diabetes, Insulin dep HEENT HX ENT Disorders: Yes (READING GLASSES) HEENT Disorders: Cataract, Glaucoma Loss of Vision: Bilateral Hearing Impairment: Denies Cancer Hx Cancer: Yes (KIDNEY TUMOR) Cancer: Breast Psychosocial Hx Psychiatric Problems: Yes Behavioral Health Disorders: Anxiety, Depression Integumentary HX Skin/Integumentary Disorder: No Blood Transfusions Hx Blood Disorders: Yes (ANEMIA, 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) Adverse Reaction to a Blood Tr: No Family Medical History Significant Family History: CAD Under 55 Years Old Physical Exam Vital Signs Vital Sign - Last 12Hours 06/12/17 13:30 Temp 96.9 Pulse 71 Resp 30 B/P (MAP) 196/84 Pulse Ox 87 O2 Delivery Nasal Cannula O2 Flow Rate 3.00 Capillary Refill : Less Than 3 Seconds General Appearance: mild distress Eyes: Bilateral Eye Normal Inspection HEENT: normal ENT inspection Neck: non-tender, full range of motion, supple, normal inspection, carotid bruit Respiratory: decreased breath sounds (distant) Cardiovascular: normal peripheral pulses, regular rate, rhythm, no edema, no gallop, no JVD, no murmur Gastrointestinal: normal bowel sounds, non tender, soft, no organomegaly, no pulsatile mass Extremities: other (1-2+ symmetric pedal edema) Neurologic/Psychiatric: ldr rn II-XII nml as tested, no motor/sensory deficits, alert, normal mood/affect, oriented x 3 Skin: other (bronzy erythema right breast) Lymphatic: no adenopathy Progress/Results/Core Measures Results/Orders Lab Results Laboratory Tests Test 06/12/17 13:40 06/12/17 15:50 Range/Units White Blood Count 4.6 4.3-11.0 10^3/uL Red Blood Count 3.49 L 4.35-5.85 10^6/uL Hemoglobin 9.1 L 11.5-16.0 G/DL Hematocrit 31 L 35-52 % Mean Corpuscular Volume 88 80-99 FL Mean Corpuscular Hemoglobin 26 25-34 PG Mean Corpuscular Hemoglobin Concent 30 L 32-36 G/DL Red Cell Distribution Width 16.1 H 10.0-14.5 % Platelet Count 240 130-400 10^3/uL Mean Platelet Volume 9.8 7.4-10.4 FL Neutrophils (%) (Auto) 67 42-75 % Lymphocytes (%) (Auto) 20 12-44 % Monocytes (%) (Auto) 10 0-12 % Eosinophils (%) (Auto) 4 0-10 % Basophils (%) (Auto) 0 0-10 % Neutrophils # (Auto) 3.1 1.8-7.8 X 10^3 Lymphocytes # (Auto) 0.9 L 1.0-4.0 X 10^3 Monocytes # (Auto) 0.4 0.0-1.0 X 10^3 Eosinophils # (Auto) 0.2 0.0-0.3 10^3/uL Basophils # (Auto) 0.0 0.0-0.1 10^3/uL Sodium Level 139 135-145 MMOL/L Potassium Level 5.1 H 3.6-5.0 MMOL/L Chloride Level 107 98-107 MMOL/L Carbon Dioxide Level 22 21-32 MMOL/L Anion Gap 10 5-14 MMOL/L Blood Urea Nitrogen 27 H 7-18 MG/DL Creatinine 1.27 0.60-1.30 MG/DL Estimat Glomerular Filtration Rate 42 BUN/Creatinine Ratio 21 Glucose Level 110 H 70-105 MG/DL Calcium Level 9.4 8.5-10.1 MG/DL Total Bilirubin 0.4 0.1-1.0 MG/DL Aspartate Amino Transf (AST/SGOT) 16 5-34 U/L Alanine Aminotransferase (ALT/SGPT) 13 0-55 U/L Alkaline Phosphatase 60 40-136 U/L Troponin I < 0.30 <0.30 NG/ML B-Type Natriuretic Peptide 551.0 H <100.0 PG/ML Total Protein 6.5 6.4-8.2 GM/DL Albumin 3.8 3.2-4.5 GM/DL Urine Color YELLOW Urine Clarity CLEAR Urine pH 5 5-9 Urine Specific [place] 1.010 L 1.016-1.022 Urine Protein NEGATIVE NEGATIVE Urine Glucose (UA) NEGATIVE NEGATIVE Urine Ketones NEGATIVE NEGATIVE Urine Nitrite NEGATIVE NEGATIVE Urine Bilirubin NEGATIVE NEGATIVE Urine Urobilinogen NORMAL NORMAL MG/DL Urine Leukocyte Esterase 1+ H NEGATIVE Urine RBC (Auto) NEGATIVE NEGATIVE Urine RBC NONE /HPF Urine WBC 2-5 /HPF Urine Squamous Epithelial Cells RARE /HPF Urine Crystals NONE /LPF Urine Bacteria NONE /HPF Urine Casts NONE /LPF Urine Mucus NEGATIVE /LPF Urine Culture Indicated NO My Orders Orders - SHAYLA GUERRA MD Ekg Tracing (06/12/17 13:39) Chest 1 View, Ap/Pa Only (06/12/17 13:39) Cbc With Automated Diff (06/12/17 13:39) Comprehensive Metabolic Panel (06/12/17 13:39) Troponin I (06/12/17 13:39) Ua Culture If Indicated (06/12/17 13:39) BNP (06/12/17 14:11) Albuterol/Ipra Inhalation Soln (Duoneb I (06/12/17 15:15) Svn Sm Volume Nebulizer Rt-Rfs (06/12/17 15:10) Medications Given in ED Current Medications Medications Dose Ordered Sig/Gil Route Start Time Stop Time Status Last Admin Dose Admin Albuterol/ Ipratropium 3 ml ONCE ONCE INH 06/12/17 15:15 06/12/17 15:25 DC 06/12/17 15:31 3 ML Vital Signs/I&O Vital Sign - Last 12Hours 06/12/17 06/12/17 13:30 15:31 Temp 96.9 Pulse 71 Resp 30 B/P (MAP) 196/84 Pulse Ox 87 100 O2 Delivery Nasal Cannula Nasal Cannula O2 Flow Rate 3.00 3.00 Blood Pressure Mean: 121 Departure Communication Progress Notes The patient reports that she feels better post aerosol treatment and would like to have a crack in returning home. Impression Impression: Primary Impression: COPD with exacerbation Disposition: 01 HOME, SELF-CARE Condition: Improved Departure-Patient Inst. Decision time for Depature: 16:18 Referrals: ALEXANDRU CASAS MD (PCP/Family) Primary Care Physician Add. Discharge Instructions: All discharge instructions reviewed with patient and/or family. Voiced understanding. Use your puffer or nebulizer up to every 4 hours as needed. Use a O2 at 2 L/m. Take prednisone each morning as directed Return to ER if decline in condition Scripts Prednisone (Prednisone) 10 Mg Tab.ds.pk 10 MG PO DAILY, #21 PKG Take 6 tabs(60mg)daily,decrease by 1 tab(10MG)daily. Prov: SHAYLA GUERRA MD 06/12/17 SHAYLA GUERRA MD Jun 12, 2017 14:27
[2017-06-12] MEDS: RT-ALBUTEROL/IPRATROPIUM 3 ML (DUONEB) VIAL INH ONE (15:31)
[2017-06-12 15:57] LABS: BILIRUBIN,URINE NEGATIVE (NEGATIVE); KETONES,URINE NEGATIVE (NEGATIVE); LEUKOCYTE ESTERASE ,URINE 1+ (NEGATIVE); NITRITE,URINE NEGATIVE (NEGATIVE); PH,URINE 5 (5-9); PROTEIN,URINE NEGATIVE (NEGATIVE); UROBILINOGEN,URINE NORMAL (NORMAL)
[2017-06-12 16:10] LABS: SQUAMOUS EPITHELIAL CELL,UR RARE /HPF
[2017-06-12] MEDS ORDERED: PRED10TA22 PO (16:23)
[2017-06-12] MEDS: methylPREDNISolone 125 MG (Solu-MEDROL) VIAL IVP ONE (16:36)
[2017-06-12 16:46] VITALS: BP 176/76
== END 2017-06-12 16:45 | disposition home or self-care (01) ==
LOC: EDUNIT# 13:25 → ER 13:28
DX: J44.1 Chronic obstructive pulmonary disease with (acute) exacerbation (principal); F41.9 Anxiety disorder, unspecified; F32.9 Major depressive disorder, single episode, unspecified; M19.90 Unspecified osteoarthritis, unspecified site; I25.10 Atherosclerotic heart disease of native coronary artery without angina pectoris; E78.00 Pure hypercholesterolemia, unspecified; I10 Essential (primary) hypertension; Z95.1 Presence of aortocoronary bypass graft; Z87.59 Personal history of other complications of pregnancy, childbirth and the puerperium; Z98.51 Tubal ligation status; Z96.651 Presence of right artificial knee joint; Z96.0 Presence of urogenital implants; Z87.891 Personal history of nicotine dependence; Z85.3 Personal history of malignant neoplasm of breast; Z86.03 Personal history of neoplasm of uncertain behavior; Z92.3 Personal history of irradiation; Z79.84 Long term (current) use of oral hypoglycemic drugs; Z79.82 Long term (current) use of aspirin; Z79.4 Long term (current) use of insulin; Z86.2 Personal history of diseases of the blood and blood-forming organs and certain disorders involving the immune mechanism
CPT/HCPCS: 36415; 71010; 80053; 81000; 83880; 84484; 85025; 93005; 94640

== ENCOUNTER 2017-06-16 10:06 | Outpatient (RCR) | payer MEDICARE, MEDICAID ==
[~2017-06-16 10:06] MED LIST changes: +PRED10TA22 PO
== END 2017-08-06 15:12 | disposition home or self-care (01) ==
LOC: ONC 10:06
PROVIDERS: ATTEND Internal Medicine Hematology & Oncology
DX: C50.111 Malignant neoplasm of central portion of right female breast (principal); J44.9 Chronic obstructive pulmonary disease, unspecified; I25.10 Atherosclerotic heart disease of native coronary artery without angina pectoris; I10 Essential (primary) hypertension; E11.9 Type 2 diabetes mellitus without complications; M17.0 Bilateral primary osteoarthritis of knee; Z87.891 Personal history of nicotine dependence; Z79.02 Long term (current) use of antithrombotics/antiplatelets; Z79.82 Long term (current) use of aspirin
CPT/HCPCS: 99213

== ENCOUNTER → 2017-10-05 | Outpatient (CLI) | payer MEDICARE, MEDICAID ==
[~2017-10-05] MED LIST changes: +AZIT250T12 PO; -AZIT250T5 PO; +BENZ-36 PO; -BENZ100C23 PO
== END ==
LOC: CARD 12:47
PROVIDERS: ATTEND Internal Medicine Cardiovascular Disease
DX: I65.23 Occlusion and stenosis of bilateral carotid arteries (principal); E78.2 Mixed hyperlipidemia; R09.02 Hypoxemia; I70.1 Atherosclerosis of renal artery; I10 Essential (primary) hypertension; R06.00 Dyspnea, unspecified
CPT/HCPCS: 93306

== ENCOUNTER 2017-10-20 08:44 | Outpatient (RCR) | payer MEDICARE, MEDICAID ==
[2017-08-11 11:01] LABS: BASOPHILS % (AUTO) 0 % (0-10); EOSINOPHILS # (AUTO) 0.1 10^3/uL (0.0-0.3); EOSINOPHILS % (AUTO) 2 % (0-10); HEMATOCRIT 33 % (35-52); LYMPHOCYTES # (AUTO) 1.1 X 10^3 (1.0-4.0); LYMPHOCYTES % (AUTO) 18 % (12-44); MEAN CORPUSCULAR HEMOGLOBIN 27 PG (25-34); MEAN CORPUSCULAR HGB CONC 30 G/DL (32-36); MEAN CORPUSCULAR VOLUME 88 FL (80-99); MONOCYTES # (AUTO) 0.4 X 10^3 (0.0-1.0); MONOCYTES % (AUTO) 7 % (0-12); NEUTROPHILS # (AUTO) 4.4 X 10^3 (1.8-7.8); NEUTROPHILS % (AUTO) 73 % (42-75); PLATELET COUNT 191 10^3/uL (130-400); RED BLOOD COUNT 3.78 10^6/uL (4.35-5.85); RED CELL DISTRIBUTION WIDTH 15.2 % (10.0-14.5)
[2017-08-11 11:19] LABS: ALBUMIN 3.8 GM/DL (3.2-4.5); BILIRUBIN,TOTAL 0.3 MG/DL (0.1-1.0); CALCIUM 9.3 MG/DL (8.5-10.1); CREATININE SERUM 1.16 MG/DL (0.60-1.30); TOTAL PROTEIN 6.7 GM/DL (6.4-8.2)
[~2017-10-20 08:44] MED LIST changes: +ACHD5005 PO; -HYDR-3812 PO
[2017-10-20 09:19] LABS: BASOPHILS % (AUTO) 0 % (0-10); EOSINOPHILS # (AUTO) 0.2 10^3/uL (0.0-0.3); EOSINOPHILS % (AUTO) 3 % (0-10); HEMATOCRIT 34 % (35-52); HEMOGLOBIN 10.6 G/DL (11.5-16.0); LYMPHOCYTES # (AUTO) 1.2 X 10^3 (1.0-4.0); LYMPHOCYTES % (AUTO) 17 % (12-44); MEAN CORPUSCULAR HEMOGLOBIN 29 PG (25-34); MEAN CORPUSCULAR HGB CONC 31 G/DL (32-36); MEAN CORPUSCULAR VOLUME 92 FL (80-99); MEAN PLATELET VOLUME 9.6 FL (7.4-10.4); MONOCYTES # (AUTO) 0.5 X 10^3 (0.0-1.0); MONOCYTES % (AUTO) 8 % (0-12); NEUTROPHILS # (AUTO) 5.3 X 10^3 (1.8-7.8); NEUTROPHILS % (AUTO) 73 % (42-75); PLATELET COUNT 212 10^3/uL (130-400); RED BLOOD COUNT 3.71 10^6/uL (4.35-5.85); RED CELL DISTRIBUTION WIDTH 14.5 % (10.0-14.5); WHITE BLOOD COUNT 7.2 10^3/uL (4.3-11.0)
[2017-10-20 09:43] LABS: ALANINE AMINOTRANSFERASE < 6 U/L (0-55); ALBUMIN 3.9 GM/DL (3.2-4.5); ALKALINE PHOSPHATASE 58 U/L (40-136); BILIRUBIN,TOTAL 0.4 MG/DL (0.1-1.0); BUN/CREATININE RATIO 17; CALCIUM 9.2 MG/DL (8.5-10.1); CARBON DIOXIDE 30 MMOL/L (21-32); CHLORIDE 103 MMOL/L (98-107); CREATININE SERUM 1.53 MG/DL (0.60-1.30); GFR ESTIMATED 34; GLUCOSE 98 MG/DL (70-105); POTASSIUM 5.8 MMOL/L (3.6-5.0); SODIUM 141 MMOL/L (135-145); TOTAL PROTEIN 6.6 GM/DL (6.4-8.2)
== END 2017-11-09 | disposition home or self-care (01) ==
LOC: ONC 08:44
PROVIDERS: ATTEND Internal Medicine Hematology & Oncology
DX: C50.111 Malignant neoplasm of central portion of right female breast (principal); C77.3 Secondary and unspecified malignant neoplasm of axilla and upper limb lymph nodes; C64.1 Malignant neoplasm of right kidney, except renal pelvis; D64.9 Anemia, unspecified; J44.9 Chronic obstructive pulmonary disease, unspecified; I25.10 Atherosclerotic heart disease of native coronary artery without angina pectoris; I12.9 Hypertensive chronic kidney disease with stage 1 through stage 4 chronic kidney disease, or unspecified chronic kidney disease; N18.9 Chronic kidney disease, unspecified; E11.22 Type 2 diabetes mellitus with diabetic chronic kidney disease; M17.0 Bilateral primary osteoarthritis of knee; I70.1 Atherosclerosis of renal artery; E78.5 Hyperlipidemia, unspecified; Z87.891 Personal history of nicotine dependence; Z79.811 Long term (current) use of aromatase inhibitors; Z79.02 Long term (current) use of antithrombotics/antiplatelets; Z79.82 Long term (current) use of aspirin; Z79.899 Other long term (current) drug therapy; Z99.81 Dependence on supplemental oxygen; Z79.4 Long term (current) use of insulin; Z95.1 Presence of aortocoronary bypass graft
CPT/HCPCS: 36415; 80053; 85025; 99213

== ENCOUNTER → 2018-01-25 | Outpatient (CLI) | payer MEDICARE, MEDICAID ==
--- NOTE | 2018-01-25 09:55 | Diagnostic Imaging Report ---
INDICATION: Right breast carcinoma status post lumpectomy and radiation therapy. Correlation is made with prior exam from 07/08/2016 and 07/03/2015. The current study was also evaluated with a Computer Aided Detection (CAD) system. Post-therapeutic changes in the right breast are noted. The previously noted spiculated mass has been removed. There is some architectural distortion at the lumpectomy site. Significant skin thickening of the right breast is also seen. There are scattered benign calcifications bilaterally. No new mass or malignant appearing microcalcifications are seen. The axillae are unremarkable. IMPRESSION: Post-therapeutic changes of the right breast. No mammographic features consistent with malignancy are identified. ACR BI-RADS Category 2: Benign findings. Result letter will be mailed to the patient. Note: At least 10% of breast cancer is not imaged by mammography. Dictated by: Dictated on workstation # [id number]
== END ==
LOC: RAD 08:22
PROVIDERS: ATTEND Internal Medicine Hematology & Oncology
DX: Z85.3 Personal history of malignant neoplasm of breast (principal); Z90.12 Acquired absence of left breast and nipple; Z92.3 Personal history of irradiation
CPT/HCPCS: 77066

== ENCOUNTER 2018-01-30 12:07 | Inpatient (IN) | payer MEDICARE, MEDICAID ==
[2018-01-30] VITALS (14 sets, daily range): BP systolic 111–163; BP diastolic 48–97
[~2018-01-30] VITALS: Ht 152.4 cm; Wt 100.4 kg
[2018-01-30] MEDS ORDERED: ONDANSETRON 4 MG/2 ML (SDV) Z0FRAN IVP PRN (12:30)
[2018-01-30 14:36] LABS: ABG BASE EXCESS 7.9 MMOL/L (-2.5-2.5); ABG OXYGEN SATURATION 94 % (94-100); ABG PCO2 61 MMHG (35-45); ABG PH 7.36 (7.37-7.43); ABG PO2 61 MMHG (79-93); ABG TCO2 35.2 MMOL/L (21.0-31.0)
[2018-01-30 14:37] LABS: ALLENS TEST YES-POS; INSPIRED O2 30% FIO2; PATIENT TEMP 99.1
[2018-01-30 14:55] LABS: BASOPHILS % (AUTO) 0 % (0-10); EOSINOPHILS # (AUTO) 0.1 10^3/uL (0.0-0.3); EOSINOPHILS % (AUTO) 1 % (0-10); HEMATOCRIT 31 % (35-52); HEMOGLOBIN 9.1 G/DL (11.5-16.0); LYMPHOCYTES % (AUTO) 13 % (12-44); MEAN CORPUSCULAR HEMOGLOBIN 29 PG (25-34); MEAN CORPUSCULAR HGB CONC 29 G/DL (32-36); MEAN CORPUSCULAR VOLUME 99 FL (80-99); MEAN PLATELET VOLUME 10.9 FL (7.4-10.4); MONOCYTES # (AUTO) 0.6 X 10^3 (0.0-1.0); MONOCYTES % (AUTO) 8 % (0-12); NEUTROPHILS # (AUTO) 6.1 X 10^3 (1.8-7.8); NEUTROPHILS % (AUTO) 79 % (42-75); PLATELET COUNT 157 10^3/uL (130-400); RED BLOOD COUNT 3.17 10^6/uL (4.35-5.85); RED CELL DISTRIBUTION WIDTH 13.7 % (10.0-14.5); WHITE BLOOD COUNT 7.8 10^3/uL (4.3-11.0)
[2018-01-30] MEDS ORDERED: HEParin DRIP 25000 UNIT/500ML 500 ML IV ONE (15:01)
[2018-01-30 15:04] LABS: INR 1.5 (0.8-1.4); PROTHROMBIN TIME PATIENT 17.9 SEC (12.2-14.7)
--- NOTE | 2018-01-30 15:11 | Diagnostic Imaging Report ---
INDICATION: Chest pain. EXAMINATION: Portable erect AP chest at 2:44 p.m. FINDINGS: The heart size is at the upper limits of normal and stable when compared to 06/12/2017. The sternotomy wires and surgical clips, noted previously, are again evident and no different. In the interval since the prior study, a vague area of increased density has developed in the right lung base. The right hemidiaphragm is now indistinct. I suspect that there is some pneumonia/atelectasis involving the right lower lobe. The right upper lung and left lung remain generally clear. The mediastinum is not widened. The osseous structures are intact. There are calcifications in the region of both carotid bifurcations. The previous carotid Doppler exam performed on 07/03/2015 did indicate atherosclerotic plaque in both carotid bifurcations. IMPRESSION: The appearance of the chest has worsened since the prior study as right lower lobe pneumonia/atelectasis has developed. A followup exam would be recommended for continued evaluation. Dictated by: Dictated on workstation # [id number]
[2018-01-30 15:12] LABS: ALBUMIN 3.2 GM/DL (3.2-4.5); BILIRUBIN,TOTAL 0.4 MG/DL (0.1-1.0); CALCIUM 8.8 MG/DL (8.5-10.1); CREATININE SERUM 1.7 MG/DL (0.60-1.30); POTASSIUM 4.1 MMOL/L (3.6-5.0); TOTAL PROTEIN 5.1 GM/DL (6.4-8.2)
[2018-01-30] MEDS ORDERED: HEParin DRIP 25000 UNIT/500ML (ACS THERAPY) IV SCH (15:30)
[2018-01-30] MEDS ORDERED: HEParin 1000 UNIT/ML BOLUS (ACS THERAPY) IV PRN (15:30)
--- NOTE | 2018-01-30 15:40 | History & Physical-Hospitalist ---
History of Present Illness HPI/Chief Complaint Pt is a 67yoCF with a PMH of CAD s/p 4 vessel CABG, CHF, COPD, breast cancer, IDDMII, renal cell carincoma, and renal artery stenosis s/p stenting who was transferred from [facility] for cardiology services concerning an elevated troponin. She reports her symptoms started 1 month ago where she noticed increasing swelling in her legs. She was seen by her PCP and production control expert for this and advised to continue her lasix and to decrease her fluid intake. She states she drinks 3-4 44oz cups of water per day and did not cut back. Finally yesterday she became very weak and started having worsening SOB, nausea, and vomiting which prompted her to seek evaluation in the ER. She was found to have a right sided pneumonia and acute hypercapnic respiratory failure per the notes from [facility] and was admitted and started on Merrem. This morning she stated she was feeling better but her labs showed an elevated troponin prompting transfer here for evaluation by cardiology. She denies chest pain. Her only complaints currently is a sore throat and dry mouth from the BiPAP. Source: patient, family Date Seen 01/30/18 Time Seen by Provider: 14:55 Attending Physician Tea Borja MD PCP Dayna Milner MD Referring Physician Date of Admission Jan 30, 2018 at 14:25 Home Medications & Allergies Home Medications Reviewed patient Home Medication Reconciliation performed by pharmacy medication reconciliations body technician and/or nursing. Patients Allergies have been reviewed. Allergies Allergies Coded Allergies Penicillins (Verified Allergy, Unknown, 02/17/07) morphine (Verified Adverse Reaction, Intermediate, NAUSEA VOMITING, 01/22/17) I GAVE PT MORPHINE, SHE BECAME NAUSEATED ET VOMITED, SHE STATES, "I DID NOT KNOW YOU WERE GIVING ME MORPHINE, IT MAKES ME SICK!" Uncoded Allergies statins ( Adverse Reaction, Intermediate, 07/06/13) Past Bimniao-Drtbui-Ckoejl Hx Past Med/Social Hx: Reviewed Nursing Past Med/Soc Hx Patient Social History Marrital Status: single Alcohol Use: Past History Smoking Status: Former Smoker Former Smoker, Quit: Apr 23, 2002 Recent Hopitalizations: Yes Immunizations Up To Date Tetanus Booster (TDap): Less than 5yrs Date of Pneumonia Vaccine: Jul 15, 2015 Date of Influenza Vaccine: Aug 18, 2016 Seasonal Allergies Seasonal Allergies: No Past Medical History Surgeries: Breast (lumpectomy), CABG, Section, Gallbladder, Open Heart Surgery, Orthopedic, Tubal Ligation Cardiac: Cardiomyopathy, Coronary Artery Disease, High Cholesterol, Hypertension Reproductive: No Sexually Transmitted Disease: No HIV/AIDS: No Female Reproductive Disorders: Denies Genitourinary: Renal Failure Gastrointestinal: Gall Bladder Disease Musculoskeletal: Arthritis Endocrine: Diabetes, Insulin dep HEENT: Cataract, Glaucoma Loss of Vision: Bilateral Hearing Impairment: Denies Cancer: Breast, Kidney Did You Recieve Any Treatments: Yes What Type of Treatment Did You: Radiation, Surgical Intervention Psychosocial: Anxiety, Depression History of Blood Disorders: Yes (ANEMIA, 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) Adverse Reaction to Blood [place]: No Family History Reviewed Nursing Family Hx Heart Disease, CAD Under 55 Years Old, CAD Over 55 Years Old, Hypertension Review of Systems Constitutional: No fever, weakness EENTM: see HPI, No blurred vision, No double vision, No nose congestion Respiratory: see HPI, dyspnea on exertion, short of breath Cardiovascular: No chest pain, edema, Hx of Intervention, No palpitations, vascular heart diseas Gastrointestinal: No abdominal pain, constipation, No diarrhea, nausea, vomiting Genitourinary: No dysuria, No frequency Musculoskeletal: joint pain (chronic knee pain), No muscle pain, No muscle cramps Skin: No hx of skin cancer, No rash Psychiatric/Neurological: Denies Emotional Problems, Denies Headache, Denies Numbness, Denies Pre-Existing Deficit Physical Exam Physical Exam Vital Signs Vital Signs - First Documented 01/30/18 14:10 Temp 99.1 Pulse 68 Resp 15 B/P (MAP) 141/65 (90) Pulse Ox 96 O2 Delivery NIV Bilevel O2 Flow Rate 30.00 FiO2 30 Capillary Refill : General Appearance: No Apparent Distress, WD/WN, Obese HEENT: PERRL/EOMI, Moist Mucous Membranes Neck: Non Tender, Supple, JVD, No Thyromegaly Respiratory: No Accessory Muscle Use, No Respiratory Distress, Decreased Breath Sounds, No Wheezing Cardiovascular: Regular Rate, Rhythm, Systolic Murmur Gastrointestinal: Normal Bowel Sounds, Non Tender, Soft Extremity: Non Tender, No Calf Tenderness, Swelling (2-3+ pitting in bilateral extremities, left worse than right (chronic after vein harvest for CABG)) Neurologic/Psychiatric: Alert, Oriented x3, No Motor/Sensory Deficits, Normal Mood/Affect, No Aphasia, No Facial Droop Skin: Normal Color, Warm/Dry Results Results/Procedures Labs Laboratory Tests 01/30/18 14:45 01/31/18 03:15 Patient resulted labs reviewed. Imaging: Reviewed Imaging Films Imaging Date of Exam: 01/30/18 CHEST 1 VIEW, AP/PA ONLY INDICATION: Chest pain. EXAMINATION: Portable erect AP chest at 2:44 p.m. FINDINGS: The heart size is at the upper limits of normal and stable when compared to 06/12/2017. The sternotomy wires and surgical clips, noted previously, are again evident and no different. In the interval since the prior study, a vague area of increased density has developed in the right lung base. The right hemidiaphragm is now indistinct. I suspect that there is some pneumonia/atelectasis involving the right lower lobe. The right upper lung and left lung remain generally clear. The mediastinum is not widened. The osseous structures are intact. There are calcifications in the region of both carotid bifurcations. The previous carotid Doppler exam performed on 07/03/2015 did indicate atherosclerotic plaque in both carotid bifurcations. IMPRESSION: The appearance of the chest has worsened since the prior study as right lower lobe pneumonia/atelectasis has developed. A followup exam would be recommended for continued evaluation. Assessment/Plan Admission Diagnosis NSTEMI Admission Status: Inpatient Order (span 2 midnights) Reason for Inpatient Admission: NSTEMI with heart failure and pneumonia Diagnosis/Problems Diagnosis/Problems (1) NSTEMI (non-ST elevated myocardial infarction) Status: Acute Assessment & Plan: Troponin on 01/29 0.033 and this AM was 4.676 at outside hospital Occupied with new T Wave inversion Transferred here for cardiology evaluation Cardiology consulted, appreciate recs Discussed with Dr Diehl who will proceed with cath Received ASA and Plavix at OSH Started on heparin gtt and received bolus there Will continue heparin gtt (2) Acute respiratory failure Status: Acute Assessment & Plan: ABG at OSH showed hypercapnic respiratory failure Hypercapnia improved this AM On BiPAP on presentation Took off BiPAP for interview and tolerated well, will trial off while awake but resume in PM Consult Pulm Qualifiers: Respiratory failure complication: hypercapnia Qualified Codes: J96.02 - Acute respiratory failure with hypercapnia (3) THU (acute kidney injury) Status: Acute Assessment & Plan: Creatinine at baseline ~1.2 1.7 today Monitor and hold nephrotoxic drugs as able but may need cath and contrast Given in heart failure will avoid IVF at this time but if needs contrast will consider (4) COPD (chronic obstructive pulmonary disease) Status: Chronic Assessment & Plan: Pulm consulted MAT Protocol Wears nocturnal oxygen and prn during the day Qualifiers: COPD type: unspecified COPD Qualified Codes: J44.9 - Chronic obstructive pulmonary disease, unspecified (5) CHF (congestive heart failure) Status: Acute Assessment & Plan: Acutely decompensated heart failure BNP at [place] 1547.5 Was given Bumex this morning at [place] Will monitor I/Os Daily Weights Qualifiers: Heart failure type: unspecified Heart failure chronicity: acute on chronic Qualified Codes: I50.9 - Heart failure, unspecified (6) CAD (coronary artery disease) Status: Chronic Assessment & Plan: s/p [address] Cooley in [place] Follows with Dr Munguia for primary production control expert Cardiology consulted Qualifiers: Coronary Disease-Associated Artery/Lesion type: bypass graft [place] vs. transplanted heart: [place] heart Associated angina: without angina Qualified Codes: I25.810 - Atherosclerosis of coronary artery bypass graft(s) without angina pectoris (7) CAP (community acquired pneumonia) Status: Acute Assessment & Plan: Was started on Merrem at outside hospital Will continue until their cultures are available Qualifiers: Laterality: right Lung location: lower lobe of lung Qualified Codes: J18.1 - Lobar pneumonia, unspecified organism (8) Essential (primary) hypertension Status: Chronic Assessment & Plan: 140/79 currently Will monitor (9) Insulin dependent diabetes mellitus Status: Chronic Assessment & Plan: SSI (10) Normocytic anemia Status: Chronic Assessment & Plan: Hgb 9.1, at baseline for her Likely due to CKD (11) Prophylactic measure Assessment & Plan: Heparin gtt NPO Saline lock TEA BORJA MD Jan 30, 2018 3:40 pm
[2018-01-30] MEDS ORDERED: MIDAZOLAM 5 MG/5 ML (VERSED) VIAL ONE (16:03)
[2018-01-30] MEDS ORDERED: fentaNYL INJECTION 100 MCG/2 ML AMP ONE (16:04)
--- NOTE | 2018-01-30 16:15 | Cardiac Procedure Note-CS/ASA ---
Pre-Procedure Note Pre-Op Procedure Note H&P Reviewed The H&P was reviewed, patient examined and no changes noted. Date H&P Reviewed: Jan 30, 2018 Time H&P Reviewed: 16:15 Conscious Sedation Pre-Proced Time Reviewed: 16:15 ASA Class: 3 Airway Mallampati Classification: (venetie appropriate class) I. II. III, IV Lungs Heart ASA score ASA 1: a normal healthy patient ASA 2: a patient with a mild systemic disease (mid diabetes, controlled hypertension, obesity ASA 3: a patient with a severe systemic disease that limits activity (angina , COPD, prior Myocardial infarction) ASA 4: a patient with an incapacitating disease that is a constant threat to life (CHF, renal failure) ASA 5: a moribund patient not expected to survive 24 hrs. (ruptured aneurysm) ASA 6: a declared brain patient whose organs are being harvested. For emergent operations, add the letter E after the classification Grade 1 Sedation Plan: Analgesia, Amnesia, Plan communicated to team members, Discussed options with patient/fam, Discussed risks with patient/fam Note The patient is an appropriate candidate to undergo the planned procedure, sedation, and anesthesia. The patient immediately re-assessed prior to indication. Minh VARGAS MD Jan 30, 2018 4:15 pm
--- NOTE | 2018-01-30 16:15 | Consultation-Cardiology ---
HPI-Cardiology Cardiology Consultation: Date of Consultation 01/30/18 Date of Admission Attending Physician Cinthya Borja MD Admitting Physician Dayna Milner MD Consulting Physician Minh VARGAS MD HPI: Time Seen by Provider: 16:15 Chief Complaint: Shortness of breath. This is a pleasant 67-year-old lady with history of CAD, CABG 4 years ago, congestive heart failure, COPD, diabetes, history of renal cell carcinoma, renal artery stenosis with right renal artery stenting. She was transferred from [facility] where she presented with increased swelling in her legs and shortness of breath. She was also noted to have positive troponin and T-wave inversions on EKG. In the ER she was also found to have right-sided pneumonia and acute hypercapnic respiratory failure. When I saw the patient she had shortness of breath which had improved since admission to [facility] but she denied chest pain. She did have lower extremity swelling. Review of Systems-Cardiology Review of Systems Constitutional: As described under HPI Eyes: No As described under HPI, No no symptoms reported, No blindness, No blurred vision, No contact lenses, No drainage, No decreased acuity, No foreign body sensation, No glasses, No inflammation, No pain, No photophobia, No previous injury, No shadows, No tunnel vision, No other, No vision change Ears/Nose/Throat: No As described under HPI, No no symptoms reported, No chronic hearing loss, No epistaxis, No ear discharge, No ear pain, No loose teeth, No mouth pain, No mouth swelling, No nasal drainage, No nose pain, No recent hearing loss, No throat pain, No throat swelling, No ulcerations, No other Respiratory: orthopnea, shortness of breath Cardiovascular: No no symptoms reported, No As described under HPI, No chest pain, edema, No irregular heart rate, No lightheadedness, No palpitations, No syncope, No other Gastrointestinal: nausea Genitourinary: No no symptoms reported, No As described under HPI, No burning, No dysuria, No discharge, No frequency, No flank pain, No hematuria, No incontinence, No pain, No urgency, No other, No urine frequency changes, No urine coloration changes Musculoskeletal: No no symptoms reported, No As describe under HPI, No back pain, No gout, No joint pain, No joint swelling, No muscle pain, No muscle stiffness, No neck pain, No other Psychiatric/Neurological: No no symptoms reported, No As described under HPI, No anxiety, No depression, No emotional problems, No headache, No numbness, No pre-existing deficit, No seizure, No tingling, No tremors, No weakness, No other , No focal weakness, No syncope Hematologic: No no symptoms reported, No As described under HPI, No anemia, No blood clots, No easy bleeding, No easy bruising, No swollen glands, No other, No bleeding abnormalities All Other Systems Reviewed Negative Unless Noted: Yes JFB-Esbhok-Wsvysy Hx Patient Social History Alcohol Use: Denies Use Recreational Drug Use: No Smoking Status: Former Smoker Former smoker/When Quit: Jul 11, 2003 Type Used: Cigarettes Physical Abuse Screen: No Sexual Abuse: No Immunizations Up To Date Tetanus Booster (TDap): Less than 5yrs Date of Pneumonia Vaccine: Jul 15, 2015 Date of Influenza Vaccine: Sep 18, 2017 Past Medical History PMH As described under Assessment. Allergies and Home Medications Allergies Coded Allergies: Penicillins (Verified Allergy, Unknown, 02/17/07) morphine (Verified Adverse Reaction, Intermediate, NAUSEA VOMITING, ) I GAVE PT MORPHINE, SHE BECAME NAUSEATED ET VOMITED, SHE STATES, "I DID NOT KNOW YOU WERE GIVING ME MORPHINE, IT MAKES ME SICK!" Uncoded Allergies: statins (Adverse Reaction, Intermediate, 07/06/13) Home Medications Albuterol Sulfate 0.63 Mg/3 Ml Vial.neb, 0.63 MG IH PRN, (Reported) Anastrozole 1 Mg Tablet, 1 MG PO DAILY, (Reported) Aspirin 81 Mg Tablet.dr, 81 MG PO DAILY, (Reported) Benzonatate 100 Mg Capsule, 100 MG PO PRN, (Reported) Budesonide/Formoterol Fumarate 10.2 Gm Hfa.aer.ad, 2 PUFF IH BID PRN for SHORTNESS OF BREATH, (Reported) Carvedilol 12.5 Mg Tablet, 12.5 MG PO BID, (Reported) Cefdinir 300 Mg Capsule, 300 MG PO BID Prescribed by: LYLE TURNER on 01/29/17 113 Clopidogrel Bisulfate 75 Mg Tablet, 75 MG PO DAILY, (Reported) Colesevelam HCl 625 Mg Tablet, 1,875 MG PO BID, (Reported) Diazepam 2 Mg Tablet, 2 MG PO PRN PRN for ANXIETY, (Reported) Docusate Sodium 100 Mg Capsule, 100 MG PO DAILY PRN for CONSTIPATION, (Reported) Fluticasone Propionate 16 Gm Naspr, 2 SPRAY NA HS PRN for CONGESTION, (Reported) Fluticasone/Vilanterol 1 Each Blst.w.dev, 1 EACH IH DAILY, (Reported) Gabapentin 300 Mg Capsule, 600 MG PO TID, (Reported) Hydrochlorothiazide 25 Mg Tab, 25 MG PO DAILY, (Reported) Hydrocodone Bit/Acetaminophen 1 Each Tablet, 1 EACH PO Q4H PRN for PAIN, ( Reported) Hydrocodone/Acetaminophen 1 Each Tablet, 1-2 EACH PO Q4H Prescribed by: BARBARA HAWTHORNE on 01/22/17 1414 Insulin Detemir 100 Unit/1 Ml Vial, 20 UNIT SQ HS, (Reported) Metformin HCl 1,000 Mg Tablet, 1,000 MG PO BID, (Reported) Montelukast Sodium 10 Mg Tablet, 10 MG PO HS, (Reported) [place] 3 Polyunsat Fatty Acids 1,000 Mg Cap, 1,000 MG PO BID, (Reported) TAKES 2 (1000MG) CAPSULES Ondansetron 4 Mg Tab.rapdis, 4 MG PO PRN, (Reported) Prednisone 20 Mg Tab, 40 MG PO DAILY Prescribed by: LYLE TURNER on 01/29/17 1758 Prednisone 10 Mg Tab.ds.pk, 10 MG PO DAILY Take 6 tabs(60mg)daily,decrease by 1 tab(10MG)daily. Prescribed by: SHAYLA GUERRA on 06/12/17 1623 Sertraline Hcl 100 Mg Tablet, 100 MG PO DAILY, (Reported) Tolterodine Tartrate 2 Mg Tab, 2 MG PO BID, (Reported) [Legatrin Pm] , 1 TAB PO HS PRN for CRAMPS, (Reported) Patient Home Medication List Home Medication List Reviewed: Yes Physical Exam-Cardiology Physical Exam Vital Signs/I&O Vital Sign - Last 12Hours 01/30/18 01/30/18 01/30/18 01/30/18 14:10 14:10 14:35 15:00 Temp 99.1 Pulse 68 74 65 Resp 15 18 B/P (MAP) 141/65 (90) 140/79 (99) Pulse Ox 96 94 95 O2 Delivery NIV Bilevel NIV Bilevel NIV Bilevel O2 Flow Rate 30.00 30.00 30.00 FiO2 30 01/30/18 01/30/18 01/30/18 01/30/18 15:30 16:00 16:00 18:00 Pulse 117 72 Resp 32 20 B/P (MAP) 149/97 (114) 163/76 (105) Pulse Ox 100 98 100 O2 Delivery High Flow N/C High Flow N/C High Flow N/C High Flow N/C O2 Flow Rate 4.00 4.00 4.00 4.00 01/30/18 01/30/18 01/30/18 01/30/18 18:15 18:30 18:37 18:45 Pulse 73 73 73 75 Resp 21 16 32 B/P (MAP) 136/96 (109) 130/83 (99) 139/84 (102) Pulse Ox 100 100 100 100 O2 Delivery Simple Mask Simple Mask Simple Mask O2 Flow Rate 6.00 6.00 6.00 01/30/18 01/30/18 01/30/18 01/30/18 19:11 20:00 20:00 21:16 Temp 97.8 Pulse Ox 100 98 93 O2 Delivery Simple Mask High Flow N/C High Flow N/C O2 Flow Rate 6.00 5.00 5.00 Capillary Refill : Constitutional: No appears stated age, AAO x 3, No apparent distress, No PERRL , No well-developed, No well-nourished, No other HEENT: No PERRL, No normal ENT inspection, No TMs normal, No pharynx normal, No scleral icterus (R), No scleral icterus (L), No pale conjunctivae (R), No pale conjunctivae (L), No photophobia, No TM abnormal (R), No TM abnormal (L), No pharyngeal erythema, No tonsillar exudate, No other, No discharge, No EOMI, No hearing is well preserved, No hard of hearing, No oral hygience is good, No ulceration, No xanthelasmas are seen Neck: No non-tender, No full range of motion, No supple, No normal inspection, No carotid bruit, No limited range of motion, No lymphadenopathy (R), No lymphadenopathy (L), No tender lateral, No tender midline, No thyromegaly, No other, No carotid pulses are 2 + bilaterally, No with good upstrokes Respiratory: No accessory muscle use, No respiratory distress, No chest tender , No chest expansion is symmetric, chest is bilaterally symmetric, No lungs clear to percussion, lungs clear to auscultation, No crackles, No rhonchi, No rales, No stridor, No wheezing, No pleural rub, No other Cardiovascular: regular rate-rhythm, S1 and S2 Gastrointestinal: No tender, No soft, No round, No distended, No pulsatile mass , No organomegaly, No guarding, No rebound, No tenderness, No hernia, No mass, No audible bowel sounds, No abnormal bowel sounds, No abdominal bruits, No spleenomegaly, No other Rectal: deferred Extremities: No normal range of motion, No non-tender, No normal inspection, No pedal edema, No calf tenderness, No normal capillary refill, No pelvis stable , No calf tenderness, No inflammation, pedal edema, No slow capillary refill, No swelling, No other, No abrasion, No clubbing, No cyanosis, No ecchymosis, No laceration, No no lower extremity edema bilateral, No significant edema, No tenderness, No wound Neurologic/Psychiatric: No stove mounter II-XII nml as tested, No no motor/sensory deficits, alert, normal mood/affect, oriented x 3, No abnormal cerebellar tests , No abnormal stove mounter II-XII, No abnormal gait, No aphasia, No EOM palsy, No facial droop, No motor weakness, No sensory deficit, No depressed affect, No disoriented x 3, No other, No grossly intact, No power is 5/5 both on sides Skin: No normal color, No warm/dry, No cyanosis, No cool, No diaphoresis, No damp, No ecchymosis, No jaundice, No mottled, No pallor, No rash, No tattoos/ piercings, No ulcerations, No rash on exposed areas, No ulcerations on exposed areas, No other Data Review Labs Laboratory Tests 01/30/18 14:30: Blood Gas Puncture Site ARTLINE, Blood Gas Patient Temperature 99.1, Arterial Blood pH 7.36L, Arterial Blood Partial Pressure CO2 61H, Arterial Blood Partial Pressure O2 61L, Arterial Blood HCO3 33H, Arterial Blood Total CO2 35.2H, Arterial Blood Oxygen Saturation 94, Arterial Blood Base Excess 7.9H, Eyad Test YES-POS, Blood Gas Ventilator Setting NA, Blood Gas Inspired Oxygen 30% FIO2 01/30/18 14:45: White Blood Count 7.8, Red Blood Count 3.17L, Hemoglobin 9.1L, Hematocrit 31L, Mean Corpuscular Volume 99, Mean Corpuscular Hemoglobin 29, Mean Corpuscular Hemoglobin Concent 29L, Red Cell Distribution Width 13.7, Platelet Count 157, Mean Platelet Volume 10.9H, Neutrophils (%) (Auto) 79H, Lymphocytes (%) (Auto) 13, Monocytes (%) (Auto) 8, Eosinophils (%) (Auto) 1, Basophils (%) (Auto) 0, Neutrophils # (Auto) 6.1, Lymphocytes # (Auto) 1.0, Monocytes # (Auto) 0.6, Eosinophils # (Auto) 0.1, Basophils # (Auto) 0.0, Prothrombin Time 17.9H, INR Comment 1.5H, Sodium Level 144, Potassium Level 4.1, Chloride Level 101, Carbon Dioxide Level 36H, Anion Gap 7, Blood Urea Nitrogen 42H, Creatinine 1.70H, Estimat Glomerular Filtration Rate 30, BUN/Creatinine Ratio 25, Glucose Level 138H, Lactic Acid Level 0.65, Calcium Level 8.8, Total Bilirubin 0.4, Aspartate Amino Transf (AST/SGOT) 89H, Alanine Aminotransferase (ALT/SGPT) 108H, Alkaline Phosphatase 60, Troponin I 3.93*H, Total Protein 5.1L, Albumin 3.2 01/30/18 18:28: Troponin I 2.75*H 01/30/18 20:11: Glucometer 191H ECG Impression ECG Initial ECG Rhythm: Normal Sinus Comment T-wave inversions. A/P-Cardiology Assessment/Admission Diagnosis Acute hypercapnic respiratory failure, Acute diastolic congestive heart failure, Acute coronary syndrome, Pneumonia, Acute kidney injury, Diabetes, Hypertension Plan Acute hypercapnic respiratory failure, COPD exacerbation, multifactorial. On BiPAP. IV antibiotics. Acute diastolic congestive heart failure, IV Lasix. Acute coronary syndrome, elevated troponin with T-wave abnormalities. Coronary angiography is recommended. Continue aspirin, Plavix. I discussed at length with the patient about risks and complication associated with coronary angiography including bleeding, vascular damage, stroke, VA and even . Since the patient has acute kidney injury, risk of dialysis was also discussed. Pneumonia, on IV antibiotics. Acute kidney injury, continue to follow. Diabetes, Hypertension Thank you for your consultation. Please call me if you have any questions. Mohsen Vargas MD, FACP, FACC, FSCAI, FHRS, CCDS Interventional Cardiology Cardiac Electrophysiology Vascular Medicine and Endovascular Interventions Minh VARGAS MD Jan 30, 2018 4:15 pm
[2018-01-30] MEDS ORDERED: NS IV 1000 ML 1,000 ML ONE (16:36)
[2018-01-30] MEDS ORDERED: HEParin (CATH LAB) 2,000 ML IV ONE (16:36)
[2018-01-30] MEDS ORDERED: LIDOCAINE 1% INJ 50 ML (XYLOCAINE) VIAL ONE (16:36)
[2018-01-30] MEDS ORDERED: diphenhydrAMINE 50 MG/ML INJ (BENADRYL) ONE (16:49)
[2018-01-30] MEDS ORDERED: methylPREDNISolone 125 MG (Solu-MEDROL) VIAL ONE (16:49)
[2018-01-30] MEDS: NS IV 1000 ML 1,000 ML IV SCH ×2 (17:00→18:34)
--- NOTE | 2018-01-30 18:03 | Coronary Angiography Report ---
Coronary Angiography Report DATE OF PROCEDURE: 01/30/18 INDICATION: non-STEMI, pulmonary edema, pneumonia PREOPERATIVE DIAGNOSIS: non-STEMI, pulmonary edema, pneumonia POSTOPERATIVE DIAGNOSIS: patent grafts, severe [place] disease HISTORY: this is a 67-year-old lady who was transferred from an outside hospital for pneumonia, congestive heart failure, non-ST elevation PA and acute kidney insufficiency. She has history of CABG and stent to the right renal artery. Therefore, the patient was scheduled for coronary angiography. PROCEDURES PERFORMED: 1.Coronary angiography. 2.Left heart catheterization. 3. Saphenous vein graft angiography. 4. HILL angiography. 5. Aortic root injection. 6. Aortic arch angiography. 7. Abdominal aortogram. COMPLICATIONS: None. SPECIMENS: None. ESTIMATED BLOOD LOSS: 10 mL ANESTHESIA: Conscious sedation ANTICOAGULATION: none. CONTRAST: 108 mL. FLUOROSCOPY: 8.3 minutes. FLOUROSCOPY DOSE: 748 mgy. PROCEDURE DETAILS: The patient is a 67 female and was brought to the lab aide after informed consent was taken. All the risks and complications were explained in detail; this included the risk of bleeding, vascular damage, stroke , PA and even . The patient was draped and prepped in the usual sterile fashion. access was gained in the right femoral artery with a 6 [place] sheath. Coronary angiography was performed with a JR4 and JL4 catheter. Root angiography was performed with JR4 catheter. Saphenous vein grafts were engaged with a JR4 catheter. HILL angiography was performed with the ERIKA catheter. Left heart catheterization and aortic arch angiography was performed with a pigtail catheter. The pigtail catheter was then pulled back into the mid abdominal aorta and abdominal angiography was performed. FINDINGS: 1.Left main: patent. 2.LAD: total occlusion in the mid LAD. Mid and distal LAD supplied by a patent HILL graft. 3.Left circumflex artery: severe [place] disease. Diffuse disease in the ramus artery. OM 1 artery is supplied by an SVG. 4.RCA: moderate proximal disease which is similar in stenosis severity as the last angiogram in 2016. 5.Left heart catheterization: aortic pressure 118/48 mmHg. LV pressure 138/8 mmHg, LVEDP 17 mmHg. Normal LV function with 15-20 mmHg gradient across the aortic valve. 6. Aortic root injection: No significant left main disease or aortic regurgitation. 7. Aortic arch angiography: No evidence of dissection or aneurysm. Proximal segments of the great arteries are patent including brachiocephalic artery, left common carotid artery and left subclavian artery. 8. Patent saphenous vein graft to the first diagonal artery and OM1 artery. 9. Patent HILL graft to the mid LAD with mild diffuse disease in the LAD distally. 10. Abdominal angiography showed no severe disease. Tortuosity noted. Mild stenosis in the ostium of a previous right renal stent. Patent left renal artery. CONCLUSIONS: Patent bypass grafts. Severe [place] disease. Mild aortic stenosis. Normal LV function with mildly elevated LVEDP. Mild disease in the right renal artery stent. Non-STEMI is likely secondary to congestive heart failure/pneumonia or severe hypoxia. watch renal function closely. Mohsen Diehl MD, FACP, FACC, [facility] Interventional Cardiology Minh DIEHL MD Jan 30, 2018 6:03 pm
[2018-01-30] MEDS ORDERED: PATIENT MAY USE OWN MEDS, ALL PO SCH (18:15)
[2018-01-30] MEDS ORDERED: RT-ALBUTEROL/IPRATROPIUM 3 ML (DUONEB) VIAL INH PRN (19:00)
--- NOTE | 2018-01-30 19:04 | Diagnostic Imaging Report ---
PROCEDURE: US venous upper extremity left. TECHNIQUE: Multiple realtime grayscale images were obtained of left upper extremity in various projections. Duplex Doppler and and color Doppler images were also obtained. INDICATION: Left arm edema. FINDINGS: The left jugular subclavian, axillary, brachial, cephalic and basilic veins demonstrate normal response to compression, augmentation and Valsalva. There are no abnormal fluid collections or masses. IMPRESSION: No evidence of deep venous thrombosis in the left upper extremity. Dictated by: Dictated on workstation # [id number]
[2018-01-30] MEDS: inSUlin ASPART (NovoLOG) 1 UNIT/0.01 ML (CHARGE PER UNIT) SC SCH (20:15)
[2018-01-30] MEDS: RT-ALBUTEROL/IPRATROPIUM 3 ML (DUONEB) VIAL INH SCH (21:16)
[2018-01-30] MEDS: MEROPENEM 500 MG in NS (IVPB) 100 ML IV SCH (22:00)
[2018-01-31] VITALS (25 sets, daily range): BP systolic 100–142; BP diastolic 42–99
[2018-01-31] MEDS: RT-ALBUTEROL/IPRATROPIUM 3 ML (DUONEB) VIAL INH SCH ×6 (01:12→21:56)
[2018-01-31 03:22] LABS: BASOPHILS % (AUTO) 0 % (0-10); EOSINOPHILS % (AUTO) 0 % (0-10); HEMATOCRIT 31 % (35-52); HEMOGLOBIN 9.1 G/DL (11.5-16.0); LYMPHOCYTES # (AUTO) 0.4 X 10^3 (1.0-4.0); LYMPHOCYTES % (AUTO) 7 % (12-44); MEAN CORPUSCULAR HEMOGLOBIN 29 PG (25-34); MEAN CORPUSCULAR HGB CONC 29 G/DL (32-36); MEAN CORPUSCULAR VOLUME 100 FL (80-99); MEAN PLATELET VOLUME 11.5 FL (7.4-10.4); MONOCYTES # (AUTO) 0.1 X 10^3 (0.0-1.0); MONOCYTES % (AUTO) 1 % (0-12); NEUTROPHILS # (AUTO) 5.6 X 10^3 (1.8-7.8); NEUTROPHILS % (AUTO) 92 % (42-75); PLATELET COUNT 150 10^3/uL (130-400); RED BLOOD COUNT 3.15 10^6/uL (4.35-5.85); RED CELL DISTRIBUTION WIDTH 13.6 % (10.0-14.5); WHITE BLOOD COUNT 6.1 10^3/uL (4.3-11.0)
[2018-01-31 03:43] LABS: BILIRUBIN,TOTAL 0.3 MG/DL (0.1-1.0); CALCIUM 8.1 MG/DL (8.5-10.1); CREATININE SERUM 1.62 MG/DL (0.60-1.30); MAGNESIUM 1.1 MG/DL (1.8-2.4); PHOSPHORUS 4.6 MG/DL (2.3-4.7); POTASSIUM 4.5 MMOL/L (3.6-5.0); TOTAL PROTEIN 4.9 GM/DL (6.4-8.2)
[2018-01-31] MEDS: NS IV 1000 ML 1,000 ML IV SCH ×7 (03:57→23:37)
[2018-01-31] MEDS: MAGNESIUM 1 GM/100 ML IVPB 100 ML IV SCH ×5 (05:07→10:00)
[2018-01-31] MEDS: POTASSIUM CL 10MEQ/50ML IVPB 50 ML IV SCH (05:07)
[2018-01-31] MEDS: MEROPENEM 500 MG in NS (IVPB) 100 ML IV SCH ×3 (05:08→21:57)
[2018-01-31] MEDS: KCL 20 MEQ TAB (K-DUR) PO SCH (05:08)
[2018-01-31] MEDS: inSUlin ASPART (NovoLOG) 1 UNIT/0.01 ML (CHARGE PER UNIT) SC SCH ×4 (06:23→21:00)
[2018-01-31] MEDS: CLOPIDOGREL 75 MG (PLAVIX) TABLET PO SCH (08:24)
[2018-01-31] MEDS: ASPIRIN E.C. 81 MG (ECOTRIN) TAB PO SCH (08:24)
[2018-01-31] MEDS ORDERED: ASPIRIN E.C. 325 MG (ECOTRIN) TABLET PO SCH (09:00)
[2018-01-31] MEDS ORDERED: BUMETANIDE 1 MG/4 ML (BUMEX) VIAL IV SCH (09:00)
--- NOTE | 2018-01-31 09:30 | Progress Note-Hospitalist ---
Subjective HPI/CC On Admission Date Seen by Provider: Jan 31, 2018 Time Seen by Provider: 09:23 Pt is a 67yoCF with a PMH of CAD s/p 4 vessel CABG, CHF, COPD, breast cancer, IDDMII, renal cell carincoma, and renal artery stenosis s/p stenting who was transferred from [facility] for cardiology services concerning an elevated troponin. She reports her symptoms started 1 month ago where she noticed increasing swelling in her legs. She was seen by her PCP and laboratory supervisor for this and advised to continue her lasix and to decrease her fluid intake. She states she drinks 3-4 44oz cups of water per day and did not cut back. Finally yesterday she became very weak and started having worsening SOB, nausea, and vomiting which prompted her to seek evaluation in the ER. She was found to have a right sided pneumonia and acute hypercapnic respiratory failure per the notes from [facility] and was admitted and started on Merrem. This morning she stated she was feeling better but her labs showed an elevated troponin prompting transfer here for evaluation by cardiology. She denies chest pain. Her only complaints currently is a sore throat and dry mouth from the BiPAP. Subjective/Events-last exam Pt reports doing well. No complaints. Eating well. No abd pain. No chest pain. SOB improving. Focused Exam Evaluation Lactate Level Laboratory Tests 01/30/18 14:45: Lactic Acid Level 0.65 Objective Exam Vital Signs Vital Signs Date Time Temp Pulse Resp B/P (MAP) Pulse Ox O2 Delivery O2 Flow Rate FiO2 01/30/18 14:10 99.1 68 15 141/65 (90) 96 NIV Bilevel 30.00 01/30/18 14:10 30 Capillary Refill : Less Than 3 Seconds General Appearance: No Apparent Distress, WD/WN Respiratory: No Accessory Muscle Use, No Respiratory Distress, Decreased Breath Sounds, Other (on oyxgen) Cardiovascular: Regular Rate, Rhythm, Normal Peripheral Pulses, Systolic Murmur Gastrointestinal: Normal Bowel Sounds, Non Tender, Soft Extremity: No Calf Tenderness, Swelling (2-3+ pitting edema to calves) Neurologic/Psychiatric: Alert, Oriented x3, Normal Mood/Affect Skin: Normal Color, Warm/Dry Results/Procedures Lab Laboratory Tests 01/30/18 14:45 01/31/18 03:15 Patient resulted labs reviewed. Imaging: Reviewed Imaging Films Assessment/Plan Assessment and Plan Assess & Plan/Chief Complaint NSTEMI Diagnosis/Problems Diagnosis/Problems (1) NSTEMI (non-ST elevated myocardial infarction) Status: Acute Assessment & Plan: Troponin on 01/29 0.033 and 3.93 on arrival here- now trending down at 2.95 Developed new t wave inversion with troponin elevation Had cath yesterday- severe disease but patent grafts- no occlusion Received ASA and Plavix at OSH Started on heparin gtt and received bolus there Will continue heparin gtt (2) Acute respiratory failure Status: Acute Assessment & Plan: Tolerated well off BiPAP yesterday MAT protocol Pulm consulted, appreciate recs Qualifiers: Respiratory failure complication: hypercapnia Qualified Codes: J96.02 - Acute respiratory failure with hypercapnia (3) THU (acute kidney injury) Status: Acute Assessment & Plan: Creatinine at baseline ~1.2 Trending down today at 1.61 Continue very low dose fluids given contrast dose yesterday Will attempt to stop tomorrow if creatinine stable as needs diuresis (4) CHF (congestive heart failure) Status: Acute Assessment & Plan: Acutely decompensated heart failure BNP trending down Continue Bumex Will monitor I/Os Daily Weights Qualifiers: Heart failure type: unspecified Heart failure chronicity: acute on chronic Qualified Codes: I50.9 - Heart failure, unspecified (5) COPD (chronic obstructive pulmonary disease) Status: Chronic Assessment & Plan: Pulm consulted MAT Protocol Wears nocturnal oxygen and prn during the day Qualifiers: COPD type: unspecified COPD Qualified Codes: J44.9 - Chronic obstructive pulmonary disease, unspecified (6) CAD (coronary artery disease) Status: Chronic Assessment & Plan: s/p [address] Cooley in [place] Follows with Dr Munguia for primary laboratory supervisor Cardiology consulted Qualifiers: Coronary Disease-Associated Artery/Lesion type: bypass graft [place] vs. transplanted heart: [place] heart Associated angina: without angina Qualified Codes: I25.810 - Atherosclerosis of coronary artery bypass graft(s) without angina pectoris (7) CAP (community acquired pneumonia) Status: Acute Assessment & Plan: Was started on Merrem at outside hospital Will continue until their cultures are available Qualifiers: Laterality: right Lung location: lower lobe of lung Qualified Codes: J18.1 - Lobar pneumonia, unspecified organism (8) Essential (primary) hypertension Status: Chronic Assessment & Plan: Well controlled (9) Insulin dependent diabetes mellitus Status: Chronic Assessment & Plan: SSI (10) Normocytic anemia Status: Chronic Assessment & Plan: Still Hgb 9.1, at baseline for her Likely due to CKD (11) Prophylactic measure Assessment & Plan: ADA diet Heparin gtt Clinical Quality Measures DVT/VTE Risk/Contraindication: Risk Factor Score Per Nursin RFS Level Per Nursing on Admit: 4+=Very High TEA BRADLEY MD Jan 31, 2018 9:30 am
--- NOTE | 2018-01-31 09:39 | Diagnostic Imaging Report ---
INDICATION: Pneumonia EXAMINATION: Chest 01/31/2018 COMPARISON: 01/30/2018 FINDINGS: Infiltrate and effusion at the right lung base. Cardiomegaly with pulmonary vascular congestion noted. Remaining chest is overall stable. IMPRESSION: 1. Right base infiltrate and effusion perhaps slightly increased since previous. Dictated by: Dictated on workstation # [id number]
--- NOTE | 2018-01-31 10:37 | Cardiology Progress Note ---
Cardiology SOAP Progress Note Subjective: Improved shortness of breath. Objective: I&O/Vital Signs Vital Sign - Last 12Hours 01/31/18 01/31/18 01/31/18 01/31/18 11:00 11:26 12:00 12:00 Temp 98.1 Pulse 71 Resp 14 B/P (MAP) 128/78 (95) Pulse Ox 98 92 94 O2 Delivery High Flow N/C High Flow N/C High Flow N/C High Flow N/C O2 Flow Rate 3.00 5.00 6.00 5.00 01/31/18 01/31/18 01/31/18 01/31/18 12:00 13:00 13:00 13:00 Pulse 82 80 80 Resp 16 17 B/P (MAP) 131/95 (107) 118/77 (91) Pulse Ox 92 94 O2 Delivery High Flow N/C High Flow N/C High Flow N/C O2 Flow Rate 5.00 7.00 7.00 01/31/18 01/31/18 01/31/18 01/31/18 13:55 14:00 15:00 16:00 Pulse 75 77 77 Resp 18 18 17 B/P (MAP) 109/50 (69) 119/54 (75) 137/54 (81) Pulse Ox 94 94 91 91 O2 Delivery High Flow N/C High Flow N/C High Flow N/C High Flow N/C O2 Flow Rate 7.00 7.00 7.00 7.00 01/31/18 01/31/18 01/31/18 01/31/18 16:00 16:53 17:00 18:00 Temp 99.6 Pulse 81 80 Resp 17 23 B/P (MAP) 104/83 (90) 121/53 (75) Pulse Ox 94 93 94 O2 Delivery High Flow N/C High Flow N/C High Flow N/C High Flow N/C O2 Flow Rate 6.00 7.00 7.00 7.00 01/31/18 01/31/18 01/31/18 01/31/18 19:00 19:00 19:00 19:40 Temp 100.6 Pulse 77 78 Resp 18 B/P (MAP) 109/47 (67) Pulse Ox 93 95 93 O2 Delivery High Flow N/C High Flow N/C High Flow N/C O2 Flow Rate 7.00 7.00 7.00 01/31/18 01/31/18 01/31/18 01/31/18 20:00 20:25 21:00 21:56 Temp 99.6 Pulse 76 76 Resp 25 22 B/P (MAP) 117/58 (77) 117/42 (67) Pulse Ox 95 95 94 O2 Delivery High Flow N/C High Flow N/C High Flow N/C O2 Flow Rate 7.00 7.00 7.00 Intake and Output 01/31/18 00:00 Intake Total 0 ml Output Total 1750 ml Balance -1750 ml Weight (Pounds): 225 Weight (Ounces): 3.0 Weight (Calculated Kilograms): 102.129184 Constitutional: No appears stated age, AAO x 3, No apparent distress, No PERRL , No well-developed, No well-nourished, No other Respiratory: No accessory muscle use, No respiratory distress, No chest tender , No chest expansion is symmetric, chest is bilaterally symmetric, No lungs clear to percussion, lungs clear to auscultation, No crackles, No rhonchi, No rales, No stridor, No wheezing, No pleural rub, No other Cardiovascular: regular rate-rhythm, S1 and S2 Gastrointestional: No tender, No soft, No round, No distended, No pulsatile mass, No organomegaly, No guarding, No rebound, No tenderness, No hernia, No mass, No audible bowel sounds, No abnormal bowel sounds, No abdominal bruits, No spleenomegaly, No other Extremities: No normal range of motion, No non-tender, No normal inspection, No pedal edema, No calf tenderness, No normal capillary refill, No pelvis stable , No calf tenderness, No inflammation, pedal edema, No slow capillary refill, No swelling, No other, No abrasion, No clubbing, No cyanosis, No ecchymosis, No laceration, No no lower extremity edema bilateral, No significant edema, No tenderness, No wound Neurologic/Psychiatric: No application processor II-XII nml as tested, No no motor/sensory deficits, alert, normal mood/affect, oriented x 3, No abnormal cerebellar tests , No abnormal application processor II-XII, No abnormal gait, No aphasia, No EOM palsy, No facial droop, No motor weakness, No sensory deficit, No depressed affect, No disoriented x 3, No other, No grossly intact, No power is 5/5 both on sides Skin: No normal color, No warm/dry, No cyanosis, No cool, No diaphoresis, No damp, No ecchymosis, No jaundice, No mottled, No pallor, No rash, No tattoos/ piercings, No ulcerations, No rash on exposed areas, No ulcerations on exposed areas, No other Results/Procedures: Labs Laboratory Tests 01/31/18 03:15: White Blood Count 6.1, Red Blood Count 3.15L, Hemoglobin 9.1L, Hematocrit 31L, Mean Corpuscular Volume 100H, Mean Corpuscular Hemoglobin 29, Mean Corpuscular Hemoglobin Concent 29L, Red Cell Distribution Width 13.6, Platelet Count 150, Mean Platelet Volume 11.5H, Neutrophils (%) (Auto) 92H, Lymphocytes (%) (Auto) 7L, Monocytes (%) (Auto) 1, Eosinophils (%) (Auto) 0, Basophils (%) (Auto) 0, Neutrophils # (Auto) 5.6, Lymphocytes # (Auto) 0.4L, Monocytes # (Auto) 0.1, Eosinophils # (Auto) 0.0, Basophils # (Auto) 0.0, Sodium Level 142, Potassium Level 4.5, Chloride Level 101, Carbon Dioxide Level 30, Anion Gap 11, Blood Urea Nitrogen 44H, Creatinine 1.62H, Estimat Glomerular Filtration Rate 32, BUN/ Creatinine Ratio 27, Glucose Level 246H, Calcium Level 8.1L, Phosphorus Level 4.6, Magnesium Level 1.1L, Total Bilirubin 0.3, Aspartate Amino Transf (AST/SGOT ) 61H, Alanine Aminotransferase (ALT/SGPT) 103H, Alkaline Phosphatase 61, B- Type Natriuretic Peptide 738.0H, Total Protein 4.9L, Albumin 3.0L, Triglycerides Level 124, Cholesterol Level 105, LDL Cholesterol Direct 41, VLDL Cholesterol 25, HDL Cholesterol 37L 01/31/18 12:07: Glucometer 223H 01/31/18 16:42: Glucometer 232H 01/31/18 20:56: Glucometer 290H A/P: Assessment/Dx: Acute hypercapnic respiratory failure, Acute diastolic congestive heart failure, Positive troponins Pneumonia, Acute kidney injury, Diabetes, Hypertension Plan: Acute hypercapnic respiratory failure, COPD exacerbation, multifactorial. On BiPAP. IV antibiotics. Acute diastolic congestive heart failure, IV Lasix. Acute coronary syndrome, elevated troponin with T-wave abnormalities. Coronary angiography was performed yesterday. Patent HILL to the LAD, patent SVG to OM1 , patent SVG to diagonal artery. Moderate proximal RCA stenosis. Stenosis severity is similar to previous angiogram in 2016. Positive troponins are unlikely from occlusion or stenosis of a large vessel. Severe hypoxia as a cause of type II myocardial infarction cannot be ruled out. Pneumonia, on IV antibiotics. Acute kidney injury, continue to follow. Diabetes, Hypertension- well controlled. Dr Munguia to take over care 02/01/2018. Thank you for your consultation. Please call me if you have any questions. Mohsen Diehl MD, FACP, FACC, FSCAI, FHRS, CCDS Interventional Cardiology Cardiac Electrophysiology Vascular Medicine and Endovascular Interventions Focused Exam Evaluation Lactate Level Laboratory Tests 01/30/18 14:45: Lactic Acid Level 0.65 Minh DIEHL MD Jan 31, 2018 10:37 am
[2018-01-31] MEDS: ACETAMINOPHEN 500 MG TAB (TYLENOL) PO PRN (19:55)
[2018-01-31] MEDS: MELATONIN 3 MG TABLET PO PRN (21:57)
[2018-02-01] VITALS (21 sets, daily range): BP systolic 102–153; BP diastolic 32–81
[2018-02-01] MEDS: RT-ALBUTEROL/IPRATROPIUM 3 ML (DUONEB) VIAL INH SCH ×6 (01:22→23:09)
[2018-02-01 03:55] LABS: BASOPHILS % (AUTO) 0 % (0-10); EOSINOPHILS % (AUTO) 1 % (0-10); HEMATOCRIT 28 % (35-52); HEMOGLOBIN 8.1 G/DL (11.5-16.0); LYMPHOCYTES # (AUTO) 1.2 X 10^3 (1.0-4.0); LYMPHOCYTES % (AUTO) 18 % (12-44); MEAN CORPUSCULAR HEMOGLOBIN 29 PG (25-34); MEAN CORPUSCULAR HGB CONC 29 G/DL (32-36); MEAN CORPUSCULAR VOLUME 97 FL (80-99); MEAN PLATELET VOLUME 11.3 FL (7.4-10.4); MONOCYTES # (AUTO) 0.7 X 10^3 (0.0-1.0); MONOCYTES % (AUTO) 10 % (0-12); NEUTROPHILS # (AUTO) 4.8 X 10^3 (1.8-7.8); NEUTROPHILS % (AUTO) 71 % (42-75); PLATELET COUNT 166 10^3/uL (130-400); RED BLOOD COUNT 2.84 10^6/uL (4.35-5.85); RED CELL DISTRIBUTION WIDTH 13.6 % (10.0-14.5); WHITE BLOOD COUNT 6.7 10^3/uL (4.3-11.0)
[2018-02-01 04:09] LABS: CREATININE SERUM 1.55 MG/DL (0.60-1.30); POTASSIUM 4.2 MMOL/L (3.6-5.0)
[2018-02-01 04:10] LABS: CALCIUM 8.1 MG/DL (8.5-10.1); MAGNESIUM 1.8 MG/DL (1.8-2.4); PHOSPHORUS 3.2 MG/DL (2.3-4.7)
[2018-02-01] MEDS: KCL 20 MEQ TAB (K-DUR) PO SCH (04:40)
[2018-02-01] MEDS: POTASSIUM CL 10MEQ/50ML IVPB 50 ML IV SCH (04:40)
[2018-02-01] MEDS: MAGNESIUM 1 GM/100 ML IVPB 100 ML IV SCH (04:40)
[2018-02-01] MEDS: inSUlin ASPART (NovoLOG) 1 UNIT/0.01 ML (CHARGE PER UNIT) SC SCH ×4 (04:40→22:50)
[2018-02-01] MEDS: MEROPENEM 500 MG in NS (IVPB) 100 ML IV SCH ×3 (05:11→22:51)
--- NOTE | 2018-02-01 07:32 | Pulmonary Consultation ---
History of Present Illness History of Present Illness Date of Consultation 02/01/18 07:25 Time Seen by Provider: 07:25 Date of Admission History of Present Illness 67yo with PMH of CAD, CHF, COPD, IDDMII, Renal cell carcinoma presented to ED secondary to worsening LE edema, worsening SOB. In the ED pt was dx with acute respiratory failure requiring BiPAP and pneumonia started on Merrem. She was also found to have an elevated troponin. Allergies and Home Medications Allergies Coded Allergies: Penicillins (Verified Allergy, Unknown, 02/17/07) morphine (Verified Adverse Reaction, Intermediate, NAUSEA VOMITING, ) I GAVE PT MORPHINE, SHE BECAME NAUSEATED ET VOMITED, SHE STATES, "I DID NOT KNOW YOU WERE GIVING ME MORPHINE, IT MAKES ME SICK!" Uncoded Allergies: statins (Adverse Reaction, Intermediate, 07/06/13) Home Medications Albuterol Sulfate 0.63 Mg/3 Ml Vial.neb, 0.63 MG IH PRN, (Reported) Anastrozole 1 Mg Tablet, 1 MG PO DAILY, (Reported) Aspirin 81 Mg Tablet.dr, 81 MG PO DAILY, (Reported) Benzonatate 100 Mg Capsule, 100 MG PO PRN, (Reported) Budesonide/Formoterol Fumarate 10.2 Gm Hfa.aer.ad, 2 PUFF IH BID PRN for SHORTNESS OF BREATH, (Reported) Carvedilol 12.5 Mg Tablet, 12.5 MG PO BID, (Reported) Clopidogrel Bisulfate 75 Mg Tablet, 75 MG PO DAILY, (Reported) Colesevelam HCl 625 Mg Tablet, 1,875 MG PO BID, (Reported) Diazepam 2 Mg Tablet, 2 MG PO PRN PRN for ANXIETY, (Reported) Docusate Sodium 100 Mg Capsule, 100 MG PO DAILY PRN for CONSTIPATION, (Reported) Fluticasone Propionate 16 Gm Naspr, 2 SPRAY NA HS PRN for CONGESTION, (Reported) Fluticasone/Vilanterol 1 Each Blst.w.dev, 1 EACH IH DAILY, (Reported) Gabapentin 300 Mg Capsule, 600 MG PO TID, (Reported) Hydrochlorothiazide 25 Mg Tab, 25 MG PO DAILY, (Reported) Hydrocodone Bit/Acetaminophen 1 Each Tablet, 1 EACH PO Q4H PRN for PAIN, ( Reported) Insulin Detemir 100 Unit/1 Ml Vial, 20 UNIT SQ HS, (Reported) Metformin HCl 1,000 Mg Tablet, 1,000 MG PO BID, (Reported) Montelukast Sodium 10 Mg Tablet, 10 MG PO HS, (Reported) Drewsey 3 Polyunsat Fatty Acids 1,000 Mg Cap, 1,000 MG PO BID, (Reported) TAKES 2 (1000MG) CAPSULES Ondansetron 4 Mg Tab.rapdis, 4 MG PO PRN, (Reported) Sertraline Hcl 100 Mg Tablet, 100 MG PO DAILY, (Reported) Tolterodine Tartrate 2 Mg Tab, 2 MG PO BID, (Reported) [Legatrin Pm] , 1 TAB PO HS PRN for CRAMPS, (Reported) Past Xappzuw-Hfpryz-Xuiwmh Hx Patient Social History Alcohol Use: Past History Recreational Drug Use: No Smoking Status: Former Smoker Type Used: Cigarettes Former Smoker, Quit: Apr 23, 2002 Recent Foreign Travel: No Contact w/Someone Who Travel: No Recent Infectious Disease Expo: No Recent Hopitalizations: Yes Immunizations Up To Date Tetanus Booster (TDap): Less than 5yrs Date of Pneumonia Vaccine: Jul 15, 2015 Date of Influenza Vaccine: Sep 18, 2017 Seasonal Allergies Seasonal Allergies: No Surgeries History of Surgeries: Yes (KIDNEY ABLATION-FORM TUMOR, R TKR, THROAT X3, DENTAL , CATARACTS, RENAL STEN) Surgeries: Breast (lumpectomy), CABG, Section, Gallbladder, Open Heart Surgery, Orthopedic, Tubal Ligation Respiratory History of Respiratory Disorde: Yes Respiratory Disorders: COPD Cardiovascular History of Cardiac Disorders: Yes Cardiac Disorders: Cardiomyopathy, Coronary Artery Disease, High Cholesterol, Hypertension Neurological History of Neurological Disord: No Reproductive System : No Hx Reproductive Disorders: No Sexually Transmitted Disease: No HIV/AIDS: No Female Reproductive Disorders: Denies Genitourinary History of Genitourinary Disor: No Genitourinary Disorders: Renal Failure Gastrointestinal History of Gastrointestinal Di: Yes Gastrointestinal Disorders: Gall Bladder Disease Musculoskeletal History of Musculoskeletal Dis: Yes (SCIATIC NERVE PAIN) Musculoskeletal Disorders: Arthritis Endocrine History of Endocrine Disorders: Yes Endocrine Disorders: Diabetes, Insulin dep HEENT History of HEENT Disorders: Yes HEENT Disorders: Cataract, Glaucoma Loss of Vision: Bilateral Hearing Impairment: Denies Cancer History of Cancer: Yes (KIDNEY TUMOR) Cancer: Breast, Kidney Did You Recieve Any Treatments: Yes Type of Tx Receive: Radiation, Surgical Intervention Psychosocial History of Psychiatric Problem: No Behavioral Health Disorders: Anxiety, Depression Integumentary History of Skin or Integumenta: No Blood Transfusions History of Blood Disorders: Yes ( 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) Adverse Reaction to a Blood Tr: No Family Medical History Significant Family History: Heart Disease, CAD Under 55 Years Old, CAD Over 55 Years Old, Hypertension Family Medial History: Cardiovascular disease 19 FATHER G8 BROTHER Myocardial infarction 19 MOTHER Review of Systems Time Seen by Provider: 07:43 Constitutional: Fever, Chills, Weakness, No: Sweats, Malaise Eyes: No: Pain, Vision change, Conjunctivae inflammation, Eyelid inflammation, Other, Redness ENT: No: Ear pain, Ear discharge, Nose pain, Nose discharge, Nose congestion, Mouth pain, Mouth swelling, Throat pain, Throat swelling, Other Respiratory: Cough, Dry, Shortness of breath, SOB with excertion, No: Wheezing Cardiovascular: Paroxysmal Noc. Dyspnea, Edema, No: Chest Pain, Palpitations, Orthopnea, Lt Headedness, Other Exam Exam Vital Signs Date Time Temp Pulse Resp B/P (MAP) Pulse Ox O2 Delivery O2 Flow Rate FiO2 02/01/18 07:00 66 02/01/18 06:42 73 14 97 High Flow N/C 5.00 02/01/18 06:38 100 High Flow N/C 7.00 02/01/18 06:00 68 20 102/43 (62) 100 High Flow N/C 7.00 02/01/18 05:00 75 18 132/54 (80) 89 High Flow N/C 7.00 02/01/18 04:00 97.3 02/01/18 04:00 98 High Flow N/C 7.00 02/01/18 04:00 72 23 118/50 (72) 99 High Flow N/C 7.00 02/01/18 03:00 74 23 119/43 (68) 99 High Flow N/C 7.00 02/01/18 02:00 75 18 113/38 (63) 95 High Flow N/C 7.00 02/01/18 01:23 93 High Flow N/C 7.00 02/01/18 01:00 76 25 111/44 (66) 97 High Flow N/C 7.00 02/01/18 01:00 76 02/01/18 00:00 77 28 114/45 (68) 97 High Flow N/C 7.00 01/31/18 23:25 95 High Flow N/C 7.00 01/31/18 23:25 99.9 01/31/18 23:00 79 19 115/50 (71) 97 High Flow N/C 7.00 01/31/18 22:00 80 13 113/48 (69) 94 High Flow N/C 7.00 01/31/18 21:56 94 High Flow N/C 7.00 01/31/18 21:00 76 22 117/42 (67) 95 High Flow N/C 7.00 01/31/18 20:25 99.6 01/31/18 20:00 76 25 117/58 (77) 95 High Flow N/C 7.00 01/31/18 19:40 93 High Flow N/C 7.00 01/31/18 19:00 78 01/31/18 19:00 95 High Flow N/C 7.00 01/31/18 19:00 100.6 77 18 109/47 (67) 93 High Flow N/C 7.00 01/31/18 18:00 80 23 121/53 (75) 94 High Flow N/C 7.00 01/31/18 17:00 81 17 104/83 (90) 93 High Flow N/C 7.00 01/31/18 16:53 99.6 High Flow N/C 7.00 01/31/18 16:00 94 High Flow N/C 6.00 01/31/18 16:00 77 17 137/54 (81) 91 High Flow N/C 7.00 01/31/18 15:00 77 18 119/54 (75) 91 High Flow N/C 7.00 01/31/18 14:00 75 18 109/50 (69) 94 High Flow N/C 7.00 01/31/18 13:55 94 High Flow N/C 7.00 01/31/18 13:00 80 17 118/77 (91) 94 High Flow N/C 7.00 01/31/18 13:00 80 01/31/18 13:00 High Flow N/C 7.00 01/31/18 12:00 82 16 131/95 (107) 92 High Flow N/C 5.00 01/31/18 12:00 98.1 High Flow N/C 5.00 01/31/18 12:00 94 High Flow N/C 6.00 01/31/18 11:26 92 High Flow N/C 5.00 01/31/18 11:00 71 14 128/78 (95) 98 High Flow N/C 3.00 01/31/18 10:00 73 22 112/99 (103) 96 High Flow N/C 3.00 01/31/18 09:00 73 22 107/66 (80) 90 High Flow N/C 3.00 01/31/18 08:00 98.0 High Flow N/C 5.00 01/31/18 08:00 94 High Flow N/C 5.00 01/31/18 08:00 75 12 111/63 (79) 94 High Flow N/C 3.00 I & O 02/01/18 07:00 Intake Total 2065 ml Output Total 1860 ml Balance 205 ml General Appearance: No Apparent Distress, WD/WN, Obese HEENT: PERRL/EOMI, Moist Mucous Membranes Neck: Non Tender, Supple, JVD, No Thyromegaly Respiratory: No Accessory Muscle Use, No Respiratory Distress, Decreased Breath Sounds, No Wheezing Cardiovascular: Regular Rate, Rhythm, Systolic Murmur Capillary Refill: Less Than 3 Seconds Extremity: Non Tender, No Calf Tenderness, Swelling (2-3+ pitting in bilateral extremities, left worse than right (chronic after vein harvest for CABG)) Neurologic/Psychiatric: Alert, Oriented x3, No Motor/Sensory Deficits, Normal Mood/Affect, No Aphasia, No Facial Droop Skin: Normal Color, Warm/Dry Results Lab Laboratory Tests 01/30/18 14:45 01/31/18 03:15 02/01/18 03:20 Assessment/Plan Assessment/Plan Acute respiratory failure with pulmonary edema -Noninvasive ventilation PRN -pt will benefit from home vent to mask pneumonia -merrem NSTEMI -cardiology is following Severe COPD pt does have home oxygen -SVNS CHF -Hep lock IVF -increase bumex to 1mg IV daily 255 AKASH SILVERMAN DO Feb 01, 2018 07:32
--- NOTE | 2018-02-01 08:28 | Diagnostic Imaging Report ---
INDICATION: Acute myocardial infarction, right lower lobe pneumonia. TIME OF EXAMINATION: 03:33 a.m. COMPARISON: Correlation is made with prior study from 01/31/2018. FINDINGS: The heart size is normal. There are changes of median sternotomy and CABG. Right-sided parenchymal infiltrate in the mid and lower lung field is noted, slightly increased in the right midlung since yesterday. Left lung is clear. No effusion or pneumothorax is seen. IMPRESSION: Mild increase in right-sided infiltrate when compared with the examination one day earlier. Dictated by: Dictated on workstation # [id number]
[2018-02-01] MEDS ORDERED: FLUT16SP22 NS (09:07)
[2018-02-01] MEDS ORDERED: UMEC62.5 INH (09:07)
[2018-02-01] MEDS ORDERED: HYDR25TA4 PO (09:07)
[2018-02-01] MEDS ORDERED: RT-ALBUINH INH (09:07)
[2018-02-01] MEDS ORDERED: INSU100V5 SC (09:07)
[2018-02-01] MEDS ORDERED: METH4TAB10 PO (09:07)
[2018-02-01] MEDS ORDERED: SERT100T8 PO (09:07)
[2018-02-01] MEDS ORDERED: DOXY100C2 PO (09:07)
[2018-02-01] MEDS ORDERED: MONT10TA24 PO (09:07)
[2018-02-01] MEDS ORDERED: ONDA8TAB12 PO (09:07)
[2018-02-01] MEDS ORDERED: OMG1KC PO ×2 (09:07)
[2018-02-01] MEDS: BUMETANIDE 1 MG/4 ML (BUMEX) VIAL IV SCH (09:10)
[2018-02-01] MEDS: ASPIRIN E.C. 81 MG (ECOTRIN) TAB PO SCH (09:11)
[2018-02-01] MEDS: CLOPIDOGREL 75 MG (PLAVIX) TABLET PO SCH (09:11)
--- NOTE | 2018-02-01 09:32 | Cardiology Progress Note ---
Subjective Date Seen by Provider: Feb 01, 2018 Time Seen by Provider: 09:00 Subjective/Events-last exam Patient was seen and evaluated, appear that she is feeling better at this time, was in respiratory insufficiency, has worsening edema. Started on diuretics and respiratory treatment. Currently reporting improvement. Asking to go to regular floor. Still complaining of generalized weakness and loss of energy. Denied any chest pain. Review of Systems General: No Chills, No Night Sweats, Fatigue, Malaise, No Appetite, No Other HEENT: No Head Aches, No Visual Changes, No Eye Pain, No Ear Pain, No Dysphasia , No Sinus Congestion, No Post Nasal Drip, No Sore Throat, No Other Pulmonary: Dyspnea, No Cough, No Pleuritic Chest Pain, No Other Cardiovascular: Edema, No: Chest Pain, Palpitations, Orthopnea, Paroxysmal Noc. Dyspnea, Lt Headedness, Other Focused Exam Evaluation Lactate Level Laboratory Tests 01/30/18 14:45: Lactic Acid Level 0.65 Objective-Cardiology Exam Last Set of Vital Signs Vital Signs 01/30/18 02/01/18 02/01/18 02/01/18 02/01/18 14:10 06:00 06:42 07:00 08:42 Temp 97.9 Pulse 66 Resp 14 B/P (MAP) 102/43 (62) Pulse Ox 97 O2 Delivery High Flow N/C O2 Flow Rate 5.00 FiO2 30 Capillary Refill : Less Than 3 Seconds I&O Intake and Output 02/01/18 00:00 Intake Total 3765 ml Output Total 1575 ml Balance 2190 ml Intake Oral 2165 ml IV Total 1600 ml Output Urine Total 1575 ml General: Alert, Oriented X3, Cooperative HEENT: Atraumatic, PERRLA Neck: Supple, No JVD, No Thyromegaly Lungs: Normal Air Movement, Other (diminished breathing sounds on the left) Heart: Regular Rate, Normal S1, Normal S2, Other (systolic ejection murmur at the left sternal border) Abdomen: Normal Bowel Sounds, Soft, No Tenderness, No Hepatosplenomegaly, No Masses Extremities: No Clubbing, No Cyanosis, Normal Pulses, No Tenderness/Swelling, Other (2-3 pedal edema) Skin: No Rashes, No Breakdown, No Significant Lesion Neuro: Normal Speech, Strength at 5/5 X4 Ext, Normal Tone, Sensation Intact Psych/Mental Status: Mental Status NL, Mood NL Results Lab Laboratory Tests 02/01/18 03:20 A/P-Cardiology Admission Diagnosis Acute respiratory failure Acute kidney injury Non-ST elevation myocardial infarction Hypertension Assessment/Plan Acute respiratory insufficiency, acute excess her ratio of COPD, has been oxygen dependent at home, improving, receiving treatment for pneumonia. Managed by Dr. Titus Non-ST elevation myocardial infarction, elevated troponin level, status post cardiac catheterization which showed patent bypass grafts as described below, probably troponin elevation is due to hypoxemia and small vessel disease. Continue conservative management and continue to monitor. Coronary artery disease status post CABG 3 using HILL to LAD, reversed SVG to OM1 and diagonal, done by Dr. Cho in July 2015. Most recent cardiac catheterization done April 23, 2016 and repeat cardiac catheterization was done on January 31, [address] Dielh which showed patent HILL to LAD, SVG to OM, SVG to diagonal with moderate disease at the proximal right coronary artery that did not change compared to the finding of 2015. Medical Therapy Was Recommended. Moderate aortic valve stenosis, calcified valve, valve area 1.1 cm, gradient across the valve is 54 mmHg at peak and 28 mmHg at mean. continue to monitor at this time. No changes are recommended Fluid overload due to congestive heart failure with acute diastolic left ventricular dysfunction secondary to coronary artery disease and hypertensive heart disease in addition to renal insufficiency. Started on diuretics, continue to monitor closely. Pulmonary hypertension secondary to COPD and diastolic dysfunction. Continue to monitor Hypertension, continue on current medication monitor blood pressure Acute on chronic renal insufficiency, monitor renal function. Renal artery stenosis with history of right renal artery stent using Jasimn 5.0 x 12 mm stent in 2006. Patent right renal artery stent per most recent cardiac catheterization done April 2016. Continue to monitor. Hyperlipidemia, continue to monitor lipids Clear cell renal cancer, status post surgery done at [facility], she has been followed by Dr. 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 Herron Clinical Quality Measures DVT/VTE Risk/Contraindication: Risk Factor Score Per Nursin RFS Level Per Nursing on Admit: 4+=Very High WILLAM KO MD Feb 01, 2018 09:32
--- NOTE | 2018-02-01 16:44 | Progress Note-Hospitalist ---
Progress Note HPI/CC on Admission Pt is a 67yoCF with a PMH of CAD s/p 4 vessel CABG, CHF, COPD, breast cancer, IDDMII, renal cell carincoma, and renal artery stenosis s/p stenting who was transferred from [facility] for cardiology services concerning an elevated troponin. She reports her symptoms started 1 month ago where she noticed increasing swelling in her legs. She was seen by her PCP and optical instrument repairer for this and advised to continue her lasix and to decrease her fluid intake. She states she drinks 3-4 44oz cups of water per day and did not cut back. Finally yesterday she became very weak and started having worsening SOB, nausea, and vomiting which prompted her to seek evaluation in the ER. She was found to have a right sided pneumonia and acute hypercapnic respiratory failure per the notes from [facility] and was admitted and started on Merrem. This morning she stated she was feeling better but her labs showed an elevated troponin prompting transfer here for evaluation by cardiology. She denies chest pain. Her only complaints currently is a sore throat and dry mouth from the BiPAP. Progress Notes/Assess & Plan Date Seen 02/01/18 Time Seen by Provider: 16:41 Diagonsis/Assessment & Plan The patient is a 67-year-old white female who was originally hospitalized at [facility]. She was transferred here after a troponin was found to be significantly elevated while undergoing treatment for pneumonia. She has a past history of coronary artery disease with a previous four-vessel bypass grafting. In addition she has diagnoses of COPD congestive heart failure previous breast cancer diabetes and renal cell carcinoma. She reports that she is feeling considerably better than she did on admission and would like to go to the floor. She has been afebrile. Physical exam: She is alert and pleasant. She is morbidly obese. Lungs show distant breath sounds and dullness in the bases. CV is regular without murmur. Abdomen is obese. Extremities show 1+ bilateral pitting edema. Impression: Pneumonia. 2.subsequent non-STEMI. Plan: Transfer to the floor to complete antibiotic therapy. Focused Exam Evaluation Lactate Level Laboratory Tests 01/30/18 14:45: Lactic Acid Level 0.65 SHAYLA GUERRA MD Feb 01, 2018 16:44
[2018-02-01] MEDS: MELATONIN 3 MG TABLET PO PRN (22:50)
[2018-02-02] MEDS: RT-ALBUTEROL/IPRATROPIUM 3 ML (DUONEB) VIAL INH SCH ×6 (02:38→21:48)
[2018-02-02 04:22] VITALS: BP 159/71
[2018-02-02 06:46] VITALS: BP 159/71
[2018-02-02] MEDS: inSUlin ASPART (NovoLOG) 1 UNIT/0.01 ML (CHARGE PER UNIT) SC SCH ×4 (06:49→21:00)
[2018-02-02] MEDS: MEROPENEM 500 MG in NS (IVPB) 100 ML IV SCH ×3 (06:50→22:31)
[2018-02-02] MEDS: KCL 20 MEQ TAB (K-DUR) PO SCH (07:20)
[2018-02-02 08:00] VITALS: BP 161/74
--- NOTE | 2018-02-02 08:22 | Cardiology Progress Note ---
Subjective Date Seen by Provider: Feb 02, 2018 Time Seen by Provider: 08:19 Subjective/Events-last exam Patient is sitting up in bed. Continues to complain of some dyspnea. Denies any CP, dizziness, or lightheadedness. Review of Systems General: No Night Sweats, No Fatigue, No Malaise HEENT: No Visual Changes, No Dysphasia, No Sore Throat Pulmonary: Dyspnea, Cough, No Pleuritic Chest Pain Cardiovascular: Edema, No: Chest Pain, Palpitations, Paroxysmal Noc. Dyspnea Gastrointestinal: No: Nausea, Vomiting, Abdominal Pain Genitourinary: No Dysuria, No Frequency Musculoskeletal: No: neck pain, back pain Neurological: Weakness, No: Numbness, Change in speech, Confusion Focused Exam Evaluation Lactate Level Laboratory Tests 01/30/18 14:45: Lactic Acid Level 0.65 Objective-Cardiology Exam Last Set of Vital Signs Vital Signs 01/30/18 02/02/18 02/02/18 14:10 04:22 06:46 Temp 98.2 Pulse 80 Resp 16 B/P (MAP) 159/71 (100) Pulse Ox 97 O2 Delivery Nasal Cannula O2 Flow Rate 5.00 FiO2 30 Capillary Refill : Less Than 3 Seconds I&O Intake and Output 02/01/18 23:59 Intake Total 1660 ml Output Total 3535 ml Balance -1875 ml Intake Oral 1310 ml IV Total 350 ml Output Urine Total 3535 ml # Voids 1 General: Alert, Oriented X3, Cooperative HEENT: Atraumatic, PERRLA Neck: Supple, No JVD, No Thyromegaly Lungs: Normal Air Movement, Other (diminished breathing sounds on the left, bilat exp wheezing) Heart: Regular Rate, Normal S1, Normal S2, Other (systolic ejection murmur at the left sternal border) Abdomen: Normal Bowel Sounds, Soft, No Tenderness, No Hepatosplenomegaly, No Masses Extremities: No Clubbing, No Cyanosis, Normal Pulses, No Tenderness/Swelling, Other (2-3 pedal edema) Skin: No Rashes, No Breakdown, No Significant Lesion Neuro: Normal Speech, Strength at 5/5 X4 Ext, Normal Tone, Sensation Intact Psych/Mental Status: Mental Status NL, Mood NL A/P-Cardiology Admission Diagnosis Acute respiratory failure Acute kidney injury Non-ST elevation myocardial infarction Hypertension Assessment/Plan Acute respiratory insufficiency, acute exacerbation of COPD, has been oxygen dependent at home, improving, receiving treatment for pneumonia. Managed by Dr. Titus Non-ST elevation myocardial infarction, elevated troponin level, status post cardiac catheterization which showed patent bypass grafts as described below, probably troponin elevation is due to hypoxemia and small vessel disease. Continue conservative management and continue to monitor. Coronary artery disease status post CABG 3 using HILL to LAD, reversed SVG to OM1 and diagonal, done by Dr. Cho in July 2015. Most recent cardiac catheterization done April 23, 2016 and repeat cardiac catheterization was done on January 31, [address] Diehl which showed patent HILL to LAD, SVG to OM, SVG to diagonal with moderate disease at the proximal right coronary artery that did not change compared to the finding of 2015. Medical Therapy Was Recommended. Moderate aortic valve stenosis, calcified valve, valve area 1.1 cm, gradient across the valve is 54 mmHg at peak and 28 mmHg at mean. continue to monitor at this time. No changes are recommended Fluid overload due to congestive heart failure with acute diastolic left ventricular dysfunction secondary to coronary artery disease and hypertensive heart disease in addition to renal insufficiency. Started on diuretics, continue to monitor closely. Pulmonary hypertension secondary to COPD and diastolic dysfunction. Continue to monitor Hypertension, restart home blood pressure medications and continue to monitor. Acute on chronic renal insufficiency, monitor renal function. Renal artery stenosis with history of right renal artery stent using Jasmin 5.0 x 12 mm stent in 2006. Patent right renal artery stent per most recent cardiac catheterization done April 2016. Continue to monitor. Hyperlipidemia, continue to monitor lipids History of renal cancer, status post surgery done at [facility], she has been followed by Dr. 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 Herron Clinical Quality Measures DVT/VTE Risk/Contraindication: Risk Factor Score Per Nursin RFS Level Per Nursing on Admit: 4+=Very High ALEX WEISS Feb 02, 2018 08:21
[2018-02-02] MEDS: CLOPIDOGREL 75 MG (PLAVIX) TABLET PO SCH (09:19)
[2018-02-02] MEDS: BUMETANIDE 1 MG/4 ML (BUMEX) VIAL IV SCH (09:19)
[2018-02-02] MEDS: ASPIRIN E.C. 81 MG (ECOTRIN) TAB PO SCH (09:19)
[2018-02-02] MEDS: HYDROCHLOROTHIAZIDE 25 MG (HCTZ) TAB PO SCH (09:19)
[2018-02-02] MEDS: CARVEDILOL 12.5 MG (COREG) TABLET PO SCH ×2 (09:19→20:34)
[2018-02-02] MEDS: SENNOSIDES 8.6 MG (SENOKOT) TAB PO PRN (10:07)
--- NOTE | 2018-02-02 11:51 | Cardiology Progress Note ---
Subjective Date Seen by Provider: Feb 02, 2018 Time Seen by Provider: 11:50 Subjective/Events-last exam Patient is laying down in bed, feeling better, still having some shortness of breath and wheezing Review of Systems General: No Chills, No Night Sweats, No Fatigue, No Malaise, No Appetite, No Other HEENT: No Head Aches, No Visual Changes, No Eye Pain, No Ear Pain, No Dysphasia , No Sinus Congestion, No Post Nasal Drip, No Sore Throat, No Other Pulmonary: Dyspnea, Cough, No Pleuritic Chest Pain, No Other Cardiovascular: No: Chest Pain, Palpitations, Orthopnea, Paroxysmal Noc. Dyspnea, Edema, Lt Headedness, Other Focused Exam Evaluation Lactate Level Laboratory Tests 01/30/18 14:45: Lactic Acid Level 0.65 Objective-Cardiology Exam Last Set of Vital Signs Vital Signs 01/30/18 02/02/18 02/02/18 14:10 08:00 10:38 Temp 98.7 Pulse 80 Resp 20 B/P (MAP) 161/74 (103) Pulse Ox 92 O2 Delivery Nasal Cannula O2 Flow Rate 2.00 FiO2 30 Capillary Refill : Less Than 3 Seconds I&O Intake and Output 02/02/18 00:00 Intake Total 1660 ml Output Total 3535 ml Balance -1875 ml Intake Oral 1310 ml IV Total 350 ml Output Urine Total 3535 ml # Voids 1 General: Alert, Oriented X3, Cooperative HEENT: Atraumatic, PERRLA Neck: Supple, No JVD, No Thyromegaly Lungs: Normal Air Movement, Other Heart: Regular Rate, Normal S1, Normal S2, Other (systolic ejection murmur at the left sternal border) Abdomen: Normal Bowel Sounds, Soft, No Tenderness, No Hepatosplenomegaly, No Masses Extremities: No Clubbing, No Cyanosis, Normal Pulses, No Tenderness/Swelling, Other (2-3 pedal edema) Skin: No Rashes, No Breakdown, No Significant Lesion Neuro: Normal Speech, Strength at 5/5 X4 Ext, Normal Tone, Sensation Intact Psych/Mental Status: Mental Status NL, Mood NL Results Lab Laboratory Tests Test 02/01/18 15:16 02/01/18 20:58 02/02/18 05:32 02/02/18 10:47 Range/Units Glucometer 247 H 301 H 165 H 224 H 70-110 MG/DL A/P-Cardiology Admission Diagnosis Acute respiratory failure Acute kidney injury Non-ST elevation myocardial infarction Hypertension Assessment/Plan Acute respiratory insufficiency, acute exacerbation of COPD, has been oxygen dependent at home, improving, receiving treatment for pneumonia. Managed by Dr. Titus Non-ST elevation myocardial infarction, elevated troponin level, status post cardiac catheterization which showed patent bypass grafts as described below, probably troponin elevation is due to hypoxemia and small vessel disease. Continue conservative management and continue to monitor. Coronary artery disease status post CABG 3 using HILL to LAD, reversed SVG to OM1 and diagonal, done by Dr. Cho in July 2015. Most recent cardiac catheterization done April 23, 2016 and repeat cardiac catheterization was done on January 31, [address] Diehl which showed patent HILL to LAD, SVG to OM, SVG to diagonal with moderate disease at the proximal right coronary artery that did not change compared to the finding of 2015. Medical Therapy Was Recommended. Moderate aortic valve stenosis, calcified valve, valve area 1.1 cm, gradient across the valve is 54 mmHg at peak and 28 mmHg at mean. continue to monitor at this time. No changes are recommended Fluid overload due to congestive heart failure with acute diastolic left ventricular dysfunction secondary to coronary artery disease and hypertensive heart disease in addition to renal insufficiency. Started on diuretics, continue to monitor closely. Pulmonary hypertension secondary to COPD and diastolic dysfunction. Continue to monitor Hypertension, restart home blood pressure medications and continue to monitor. Acute on chronic renal insufficiency, monitor renal function. Renal artery stenosis with history of right renal artery stent using Jasmin 5.0 x 12 mm stent in 2006. Patent right renal artery stent per most recent cardiac catheterization done April 2016. Continue to monitor. Hyperlipidemia, continue to monitor lipids History of renal cancer, status post surgery done at [facility], she has been followed by Dr. 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 Herron Clinical Quality Measures DVT/VTE Risk/Contraindication: Risk Factor Score Per Nursin RFS Level Per Nursing on Admit: 4+=Very High WILLAM KO MD Feb 02, 2018 11:51
[2018-02-02 12:00] VITALS: BP 135/65
[2018-02-02 16:00] VITALS: BP 174/74
[2018-02-02] MEDS ORDERED: BUMETANIDE 1 MG/4 ML (BUMEX) VIAL IV ONE (16:00)
--- NOTE | 2018-02-02 16:41 | Progress Note-Hospitalist ---
Progress Note HPI/CC on Admission Pt is a 67yoCF with a PMH of CAD s/p 4 vessel CABG, CHF, COPD, breast cancer, IDDMII, renal cell carincoma, and renal artery stenosis s/p stenting who was transferred from [facility] for cardiology services concerning an elevated troponin. She reports her symptoms started 1 month ago where she noticed increasing swelling in her legs. She was seen by her PCP and instructor bus trolley and taxi for this and advised to continue her lasix and to decrease her fluid intake. She states she drinks 3-4 44oz cups of water per day and did not cut back. Finally yesterday she became very weak and started having worsening SOB, nausea, and vomiting which prompted her to seek evaluation in the ER. She was found to have a right sided pneumonia and acute hypercapnic respiratory failure per the notes from [facility] and was admitted and started on Merrem. This morning she stated she was feeling better but her labs showed an elevated troponin prompting transfer here for evaluation by cardiology. She denies chest pain. Her only complaints currently is a sore throat and dry mouth from the BiPAP. Progress Notes/Assess & Plan Date Seen 02/02/18 Time Seen by Provider: 16:40 Assessment & Plan The patient is a 67-year-old white female who was originally hospitalized at [facility]. She was transferred here after a troponin was found to be significantly elevated while undergoing treatment for pneumonia. She has a past history of coronary artery disease with a previous four-vessel bypass grafting. In addition she has diagnoses of COPD congestive heart failure previous breast cancer diabetes and renal cell carcinoma. She reports that she is feeling considerably better than she did on admission and would like to go to the floor. She has been afebrile. Physical exam: She is alert and pleasant. She is morbidly obese. Lungs show distant breath sounds and dullness in the bases. CV is regular without murmur. Abdomen is obese. Extremities show 1+ bilateral pitting edema. Impression: Pneumonia. 2.subsequent non-STEMI. Plan: Transfer to the floor to complete antibiotic therapy. SHAYLA GUERRA MD Feb 02, 2018 16:41
--- NOTE | 2018-02-02 16:46 | Progress Note-Hospitalist ---
Progress Note HPI/CC on Admission Pt is a 67yoCF with a PMH of CAD s/p 4 vessel CABG, CHF, COPD, breast cancer, IDDMII, renal cell carincoma, and renal artery stenosis s/p stenting who was transferred from [facility] for cardiology services concerning an elevated troponin. She reports her symptoms started 1 month ago where she noticed increasing swelling in her legs. She was seen by her PCP and sales department manager for this and advised to continue her lasix and to decrease her fluid intake. She states she drinks 3-4 44oz cups of water per day and did not cut back. Finally yesterday she became very weak and started having worsening SOB, nausea, and vomiting which prompted her to seek evaluation in the ER. She was found to have a right sided pneumonia and acute hypercapnic respiratory failure per the notes from [facility] and was admitted and started on Merrem. This morning she stated she was feeling better but her labs showed an elevated troponin prompting transfer here for evaluation by cardiology. She denies chest pain. Her only complaints currently is a sore throat and dry mouth from the BiPAP. Progress Notes/Assess & Plan Date Seen 02/02/18 Time Seen by Provider: 16:46 Assessment & Plan The patient is a 67-year-old white female who was originally hospitalized at [facility]. She was transferred here after a troponin was found to be significantly elevated while undergoing treatment for pneumonia. She has a past history of coronary artery disease with a previous four-vessel bypass grafting. In addition she has diagnoses of COPD congestive heart failure previous breast cancer diabetes and renal cell carcinoma. She reports that she is feeling considerably better than she did on admission and would like to go to the floor. She has been afebRILE 02/02 the patient reports she is feeling considerably better today and wonders when she might go home. She had a good day of diaphoresis yesterday. Thus far today and has been slow and an additional milligram of Bumex has been ordered. She is afebrile. Physical exam: She is alert and oriented. She shows no obvious signs of dyspnea. Lungs are clear to auscultation. CV is regular without murmur. Ankles show 1+ pitting edema at the malleoli. Impression: Pneumonia. 2.N STEMI suffered while undergoing pneumonia treatment at [facility] necessitating transfer here. Plan: continue antibiotic therapy. Diuretics with I and O. Repeat chest x- ray in the a.m. SHAYLA GUERRA MD Feb 02, 2018 16:46
[2018-02-02] MEDS ORDERED: POLYETHYLENE GLYCOL 17 GM (MIRALAX) PACK PO NR (17:00)
[2018-02-02 20:00] VITALS: BP 135/64
[2018-02-02] MEDS ORDERED: ZOLPIDEM 5 MG (AMBIEN) TAB PO SCH (21:00)
[2018-02-02] MEDS: ACETAMINOPHEN 500 MG TAB (TYLENOL) PO PRN (23:46)
[2018-02-03 00:02] VITALS: BP 168/60
[2018-02-03] MEDS: RT-ALBUTEROL/IPRATROPIUM 3 ML (DUONEB) VIAL INH SCH ×3 (02:39→10:24)
[2018-02-03 04:00] VITALS: BP 142/63
[2018-02-03] MEDS: KCL 20 MEQ TAB (K-DUR) PO SCH (06:00)
[2018-02-03 06:09] LABS: CALCIUM 8.9 MG/DL (8.5-10.1); CREATININE SERUM 1.09 MG/DL (0.60-1.30); POTASSIUM 3.6 MMOL/L (3.6-5.0)
[2018-02-03] MEDS: MEROPENEM 500 MG in NS (IVPB) 100 ML IV SCH (06:28)
[2018-02-03] MEDS: inSUlin ASPART (NovoLOG) 1 UNIT/0.01 ML (CHARGE PER UNIT) SC SCH ×2 (06:28→11:30)
[2018-02-03 08:00] VITALS: BP 186/81
[2018-02-03 08:30] VITALS: BP 186/81
--- NOTE | 2018-02-03 08:39 | Cardiology Progress Note ---
Subjective Date Seen by Provider: Feb 03, 2018 Time Seen by Provider: 08:37 Subjective/Events-last exam Patient is sitting up in bed. C/o increased dyspnea overnight. Denies any CP. C/ o constipation Review of Systems General: No Night Sweats, No Fatigue, No Malaise HEENT: No Visual Changes, No Dysphasia Pulmonary: Dyspnea, No Cough Cardiovascular: Edema, No: Chest Pain, Palpitations Gastrointestinal: Abdominal Pain (diffuse), Constipation, No: Nausea, Vomiting Genitourinary: No Dysuria, No Frequency Musculoskeletal: No: neck pain, back pain Neurological: No: Weakness, Numbness, Change in speech, Confusion Objective-Cardiology Exam Last Set of Vital Signs Vital Signs 01/30/18 02/03/18 02/03/18 14:10 04:00 06:30 Temp 99.0 Pulse 75 Resp 16 B/P (MAP) 142/63 (89) Pulse Ox 87 O2 Delivery Nasal Cannula O2 Flow Rate 4.00 FiO2 30 Capillary Refill : Less Than 3 Seconds I&O Intake and Output 02/03/18 00:00 Intake Total 1210 ml Balance 1210 ml Intake Oral 1110 ml IV Total 100 ml # Voids 10 General: Alert, Oriented X3, Cooperative HEENT: Atraumatic, PERRLA Neck: Supple, No JVD, No Thyromegaly Lungs: Normal Air Movement, Other Heart: Regular Rate, Normal S1, Normal S2, Other (systolic ejection murmur at the left sternal border) Abdomen: Soft, No Hepatosplenomegaly, No Masses, Other (diffusely ttp with hypoactive bowel sounds) Extremities: No Clubbing, No Cyanosis, Normal Pulses, No Tenderness/Swelling, Other (2-3 pedal edema) Skin: No Rashes, No Breakdown, No Significant Lesion Neuro: Normal Speech, Strength at 5/5 X4 Ext, Normal Tone, Sensation Intact Psych/Mental Status: Mental Status NL, Mood NL Results Lab Laboratory Tests 02/03/18 05:23 A/P-Cardiology Admission Diagnosis Acute respiratory failure Acute kidney injury Non-ST elevation myocardial infarction Hypertension Assessment/Plan Acute respiratory insufficiency, acute exacerbation of COPD, has been oxygen dependent at home,slowly improving, receiving treatment for pneumonia. Managed by Dr. Titus Non-ST elevation myocardial infarction, elevated troponin level, status post cardiac catheterization which showed patent bypass grafts as described below, probably troponin elevation is due to hypoxemia and small vessel disease. Continue conservative management and continue to monitor. Coronary artery disease status post CABG 3 using HILL to LAD, reversed SVG to OM1 and diagonal, done by Dr. Cho in July 2015. Most recent cardiac catheterization done April 23, 2016 and repeat cardiac catheterization was done on January 31, [address] Diehl which showed patent HILL to LAD, SVG to OM, SVG to diagonal with moderate disease at the proximal right coronary artery that did not change compared to the finding of 2015. Medical Therapy Was Recommended. Moderate aortic valve stenosis, calcified valve, valve area 1.1 cm, gradient across the valve is 54 mmHg at peak and 28 mmHg at mean. continue to monitor at this time. No changes are recommended Fluid overload due to congestive heart failure with acute diastolic left ventricular dysfunction secondary to coronary artery disease and hypertensive heart disease in addition to renal insufficiency. Started on diuretics, continue to monitor closely. Pulmonary hypertension secondary to COPD and diastolic dysfunction. Continue to monitor Hypertension, controlled. Continue to monitor BP/HR. Constipation- management per medical services Acute on chronic renal insufficiency, monitor renal function. Renal artery stenosis with history of right renal artery stent using Jasmin 5.0 x 12 mm stent in 2006. Patent right renal artery stent per most recent cardiac catheterization done April 2016. Continue to monitor. Hyperlipidemia, continue to monitor lipids History of renal cancer, status post surgery done at [facility], she has been followed by Dr. 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 Herron Clinical Quality Measures DVT/VTE Risk/Contraindication: Risk Factor Score Per Nursin RFS Level Per Nursing on Admit: 4+=Very High ALEX WEISS Feb 03, 2018 08:39
--- NOTE | 2018-02-03 08:52 | Diagnostic Imaging Report ---
Indication: Followup pneumonia. Time of examination: 2:44 AM Comparison: Correlation is made with prior study from 02/01/2018. Findings: The heart is enlarged but stable. There are changes of median sternotomy and CABG. There has been some improved aeration to the right lung since 2 days earlier. Mild residual infiltrate remains right mid and lower lung field. Left lung is clear. No effusion or pneumothorax is seen. Impression: Partial clearing of right-sided infiltrate when compared to examination 2 days earlier. Dictated by: Dictated on workstation # [id number]
[2018-02-03] MEDS ORDERED: FLEET ENEMA ADULT 1 EA BTL PR NR (09:00)
[2018-02-03] MEDS: BUMETANIDE 1 MG/4 ML (BUMEX) VIAL IV SCH (09:26)
[2018-02-03] MEDS: SENNOSIDES 8.6 MG (SENOKOT) TAB PO PRN (09:27)
[2018-02-03] MEDS: CARVEDILOL 12.5 MG (COREG) TABLET PO SCH (09:27)
[2018-02-03] MEDS: ASPIRIN E.C. 81 MG (ECOTRIN) TAB PO SCH (09:27)
[2018-02-03] MEDS: HYDROCHLOROTHIAZIDE 25 MG (HCTZ) TAB PO SCH (09:27)
[2018-02-03] MEDS: CLOPIDOGREL 75 MG (PLAVIX) TABLET PO SCH (09:28)
[2018-02-03 09:34] VITALS: BP 149/65
[2018-02-03] MEDS ORDERED: amLODIPine 5 MG (NORVASC) TAB PO NR (11:00)
--- NOTE | 2018-02-03 11:20 | Discharge Summary-Hospitalist ---
Diagnosis/Chief Complaint Date of Admission Jan 30, 2018 at 14:25 Date of Discharge Admission Diagnosis NSTEMI Discharge Diagnosis (1) NSTEMI (non-ST elevated myocardial infarction) Status: Acute Assessment & Plan: Troponin on 01/29 0.033 and 3.93 on arrival here- now trending down at 2.95 Developed new t wave inversion with troponin elevation Had cath yesterday- severe disease but patent grafts- no occlusion Received ASA and Plavix at OSH Started on heparin gtt and received bolus there Will continue heparin gtt (2) Acute respiratory failure Status: Acute Assessment & Plan: Tolerated well off BiPAP yesterday MAT protocol Pulm consulted, appreciate recs (3) THU (acute kidney injury) Status: Acute Assessment & Plan: Creatinine at baseline ~1.2 Trending down today at 1.61 Continue very low dose fluids given contrast dose yesterday Will attempt to stop tomorrow if creatinine stable as needs diuresis (4) CHF (congestive heart failure) Status: Acute Assessment & Plan: Acutely decompensated heart failure BNP trending down Continue Bumex Will monitor I/Os Daily Weights (5) COPD (chronic obstructive pulmonary disease) Status: Chronic Assessment & Plan: Pulm consulted MAT Protocol Wears nocturnal oxygen and prn during the day (6) CAD (coronary artery disease) Status: Chronic Assessment & Plan: s/p [address] Cooley in [place] 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 consulted (7) CAP (community acquired pneumonia) Status: Acute Assessment & Plan: Was started on Merrem at outside hospital Will continue until their cultures are available (8) Essential (primary) hypertension Status: Chronic Assessment & Plan: Well controlled (9) Insulin dependent diabetes mellitus Status: Chronic Assessment & Plan: SSI (10) Normocytic anemia Status: Chronic Assessment & Plan: Still Hgb 9.1, at baseline for her Likely due to CKD (11) Prophylactic measure Assessment & Plan: ADA diet Heparin gtt Discharge Summary Discharge Physical Exam Allergies: Coded Allergies: Penicillins (Verified Allergy, Unknown, 02/17/07) morphine (Verified Adverse Reaction, Intermediate, NAUSEA VOMITING, ) I GAVE PT MORPHINE, SHE BECAME NAUSEATED ET VOMITED, SHE STATES, "I DID NOT KNOW YOU WERE GIVING ME MORPHINE, IT MAKES ME SICK!" Uncoded Allergies: statins (Adverse Reaction, Intermediate, 07/06/13) Vitals & I&Os Vital Signs Date Time Temp Pulse Resp B/P (MAP) Pulse Ox O2 Delivery O2 Flow Rate FiO2 02/03/18 13:50 02/03/18 12:44 90 4.00 02/03/18 12:00 98.6 76 20 Nasal Cannula 01/30/18 14:10 30 General Appearance: Alert, Oriented X3, Cooperative HEENT: Atraumatic, PERRLA Respiratory: Clear to Auscultation, Normal Air Movement, Other Cardiovascular: Regular Rate, Normal S1, Normal S2 Extremities: No Clubbing, No Cyanosis Skin: No Rashes, No Breakdown Neuro: Normal Gait, Normal Speech, Strength at 5/5 X4 Ext Psych/Mental Status: Mental Status NL, Mood NL Hospital Course Notes from 02/03/18 Dr. Titus Review: Dr. Titus states he looked into starting Ventimask and asked what her CO2 levels were: 47 today, 36 on admission. 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 Blankenship told the pt that she could DC today Pt had constipation, resolved today Pt has home O2, which was upped to 6L last night. Pt wore 4-5 at home previously BP is up, will start Norvasc Pt Interview: Pt laughed that she had a BM and it was a lot Pt confirms Dr. Dayna Hu as PCP RT was in room for breathing treatment during interview; O2 levels were discussed Pt states she talked to Dr. Titus about BiPAP and I informed her that I will confer with Dr. Titus on this Physical exam stable. Lungs CTAB Pt states she lives with her dog, but has a boyfriend and ex- that check in on her. Pt confirms that someone will be able to check on her Pt confirms having Neb machine at home Pt confirms [facility] as pharmacy Home health was discussed with the pt and she states she had home health out of [place] before Pt was concerned about the bruises on her arm, but was assured that this will resolve Pt was informed that she does not meet criteria for ventimask, but Dr. Titus will see as out-pt Plan: Home O2 eval, has been on 6L Follow up with Dr. Titus out-pt Follow up with Dr. Milner next week Home health [facility] consult Norvasc added daily because of [id number] blood pressure readings today I updated primary care provider Dr. Milner I suspect poor prognosis considering the severity of her COPD and chronic oxygen maintenance at home and now acute FL with volume overload along with a multitude of other medical conditions Scribed by nAa Lafleur under direct supervision of Dr. Francisca Burns. Hospital course: Patient had a lengthy hospital course she was admitted and found to have elevated troponin and cardiology was consulted along with pulmonology for acute on chronic respiratory failure. Patient was managed according to protocol and labs were monitored closely. CO2 was elevated but not high enough to require home BiPAP but she will have close follow-up with Dr. Titus in order to evaluate the need for that to decrease chance for significant decompensation. Overall her hospital course was stable but poor prognosis long-term given the severity of her COPD and chronic medical conditions so we'll try support her as best we can with home health and I did speak with her primary care provider who will follow her in close follow-up. Labs (last 24 hrs) Laboratory Tests 02/02/18 20:52: Glucometer 299H 02/03/18 05:22: Glucometer 260H 02/03/18 05:23: Sodium Level 145, Potassium Level 3.6, Chloride Level 91L, Carbon Dioxide Level 47*H, Anion Gap 7, Blood Urea Nitrogen 21H, Creatinine 1.09, Estimat Glomerular Filtration Rate 50, BUN/Creatinine Ratio 19, Glucose Level 250H, Calcium Level 8.9 02/03/18 11:14: Glucometer 258H Microbiology 01/30/18 MRSA Screen - Final, Complete MRSA not isolated Patient resulted labs reviewed. Pending Labs Laboratory Tests 02/03/18 11:14: Glucometer 258 Imaging: Reviewed Imaging Films Discussion & Recommendations Discharge Planning: >30 minutes discharge planning Discharge Home Medications: Active Scripts Active Levaquin (Levofloxacin) 750 Mg Tablet 750 Mg PO DAILY Amlodipine Besylate 5 Mg Tablet 5 Mg PO DAILY Clopidogrel (Clopidogrel Bisulfate) 75 Mg Tablet 75 Mg PO DAILY Iprat-Albut 0.5-3(2.5) mg/3 ml (Ipratropium/Albuterol Sulfate) 3 Ml Ampul.neb 3 Ml INH RTQ4HR Reported Proair Hfa (Albuterol Sulfate) 1 Puff Puff 2 Puff INH Q4H PRN Fish Oil 1,000 mg Capsule ([place] 3 Polyunsat Fatty Acids) 1,000 Mg Cap 2,000 Mg PO HS Ondansetron HCl 8 Mg Tablet 8 Mg PO TID PRN Incruse Ellipta (Umeclidinium [place]) 62.5 Mcg Blst.w.dev 1 Puff INH DAILY Hydrochlorothiazide 25 Mg Tablet 25 Mg PO DAILY Montelukast Sodium 10 Mg Tablet 10 Mg PO HS Fluticasone Propionate 16 Gm [place].susp 2 Sprays NS DAILY Levemir (Insulin Determir) 1,000 Units/10 Ml Soln 20 Units SC HS Sertraline HCl 100 Mg Tablet 100 Mg PO DAILY Fish Oil 1,000 mg Capsule ([place] 3 Polyunsat Fatty Acids) 1,000 Mg Cap 1,000 Mg PO DAILY Anastrozole 1 Mg Tablet 1 Mg PO DAILY Welchol (Colesevelam HCl) 625 Mg Tablet 1,875 Mg PO BID TAKES 3 (625MG) TABLETS Aspir 81 (Aspirin) 81 Mg Tablet.dr 81 Mg PO DAILY [Legatrin Pm] 1 Tab PO HS PRN Colace (Docusate Sodium) 100 Mg Capsule 100 Mg PO DAILY PRN Carvedilol 12.5 Mg Tablet 12.5 Mg PO BID Instructions to patient/family Please see electronic discharge instructions given to patient. Clinical Quality Measures DVT/VTE Risk/Contraindication: Risk Factor Score Per Nursin RFS Level Per Nursing on Admit: 4+=Very High Copy Copies To 1: DAYNA MILNER MD Problem Qualifiers (1) Acute respiratory failure: Respiratory failure complication: hypercapnia Qualified Codes: J96.02 - Acute respiratory failure with hypercapnia (2) CHF (congestive heart failure): Heart failure type: unspecified Heart failure chronicity: acute on chronic Qualified Codes: I50.9 - Heart failure, unspecified (3) COPD (chronic obstructive pulmonary disease): COPD type: unspecified COPD Qualified Codes: J44.9 - Chronic obstructive pulmonary disease, unspecified (4) CAD (coronary artery disease): Coronary Disease-Associated Artery/Lesion type: bypass graft [place] vs. transplanted heart: [place] heart Associated angina: without angina Qualified Codes: I25.810 - Atherosclerosis of coronary artery bypass graft(s) without angina pectoris (5) CAP (community acquired pneumonia): Laterality: right Lung location: lower lobe of lung Qualified Codes: J18.1 - Lobar pneumonia, unspecified organism FRANCISCA BURNS DO Feb 03, 2018 11:20
[2018-02-03] MEDS ORDERED: CLOP75TA28 PO (11:24)
[2018-02-03] MEDS ORDERED: AMLO5TAB2 PO (11:24)
[2018-02-03] MEDS ORDERED: LEVO750T9 PO (11:24)
[2018-02-03] MEDS ORDERED: IPRA3AMP INH (11:24)
--- NOTE | 2018-02-03 11:27 | D/C HH Face to Face Order ---
D/C Face to Face Orders Instructions for Patient Patient Instructions/FollowUp: Dr Milner in [address] Titus in 1 week Physician to follow Patient: Dr Dayna Milner Discharge Diet for Home: ADA Diet Patient Problems: Pneumonia Severe COPD CAD Patient Data-Allergies,Ht & Wt Patient Allergies: Coded Allergies: Penicillins (Verified Allergy, Unknown, 02/17/07) morphine (Verified Adverse Reaction, Intermediate, NAUSEA VOMITING, ) I GAVE PT MORPHINE, SHE BECAME NAUSEATED ET VOMITED, SHE STATES, "I DID NOT KNOW YOU WERE GIVING ME MORPHINE, IT MAKES ME SICK!" Uncoded Allergies: statins (Adverse Reaction, Intermediate, 07/06/13) Height (Feet): 5 Height (Inches): 0.00 Weight (Pounds): 221 Weight (Ounces): 6.0 Home Health Need/Face to Face Date of Face to Face: Feb 03, 2018 Clinical Findings: Generalized weakness and fatigue, Shortness of breath I have seen Pt [id number]: Yes Discharged To: Home Diagnosis/Conditions: Pneumonia Severe COPD CAD Problems/Diagnosis/Condition: Patient is Homebound due to: Muscle weakness, Shortness of breath/distress Homebound Status Due to the above stated illness, injury or surgical procedure (medical condition or diagnosis) and associated clinical findings, the patient is homebound because of his/her inability to leave home except with aid of a supportive device and/or person AND leaving the home requires a considerable and taxing effort or is medically contraindicated. Pt req the following assistanc: [facility] Nursing Orders Home Health Services Order: Nursing Services, [place] [facility] Skating Front Desk Clerk-Evaluate & Treat, Physical Therapy-Evaluate & Treat Home Health Infusion Therapy Line Type: Saline Lock Site Location: Hand Certify Stmt I certify that this patient is under my care and that I, a nurse practitioner or a physician; a offset assistant press operator working with me, had a face to face encounter that - meets the physician face to face encounter requirements with this patient as dated. JOHNNIE BURNS DO Feb 03, 2018 11:27
[2018-02-03 12:00] VITALS: BP 154/84
[2018-02-03] MEDS ORDERED: MEROPENEM 500 MG in NS (IVPB) 100 ML IV SCH (12:00)
--- NOTE | 2018-02-03 14:46 | Cardiology Progress Note ---
Subjective Date Seen by Provider: Feb 03, 2018 Time Seen by Provider: 13:30 Subjective/Events-last exam patient is feeling better, had a good bowel movement. Denied any chest pain. Still using oxygen Review of Systems General: No Chills, No Night Sweats, No Fatigue, No Malaise, No Appetite, No Other HEENT: No Head Aches, No Visual Changes, No Eye Pain, No Ear Pain, No Dysphasia , No Sinus Congestion, No Post Nasal Drip, No Sore Throat, No Other Pulmonary: Dyspnea, No Cough, No Pleuritic Chest Pain, No Other Cardiovascular: No: Chest Pain, Palpitations, Orthopnea, Paroxysmal Noc. Dyspnea, Edema, Lt Headedness, Other Objective-Cardiology Exam Last Set of Vital Signs Vital Signs 01/30/18 02/03/18 02/03/18 14:10 12:00 12:44 Temp 98.6 Pulse 76 Resp 20 B/P (MAP) 154/84 (107) Pulse Ox 90 O2 Delivery Nasal Cannula O2 Flow Rate 4.00 FiO2 30 Capillary Refill : Less Than 3 Seconds I&O Intake and Output 02/03/18 00:00 Intake Total 1210 ml Balance 1210 ml Intake Oral 1110 ml IV Total 100 ml # Voids 10 General: Alert, Oriented X3, Cooperative HEENT: Atraumatic, PERRLA Neck: Supple, No JVD, No Thyromegaly Lungs: Normal Air Movement, Other Heart: Regular Rate, Normal S1, Normal S2, Other (systolic ejection murmur at the left sternal border) Abdomen: Soft, No Hepatosplenomegaly, No Masses, Other (diffusely ttp with hypoactive bowel sounds) Extremities: No Clubbing, No Cyanosis, Normal Pulses, No Tenderness/Swelling, Other (2-3 pedal edema) Skin: No Rashes, No Breakdown, No Significant Lesion Neuro: Normal Speech, Strength at 5/5 X4 Ext, Normal Tone, Sensation Intact Psych/Mental Status: Mental Status NL, Mood NL Results Lab Laboratory Tests 02/03/18 05:23 A/P-Cardiology Admission Diagnosis Acute respiratory failure Acute kidney injury Non-ST elevation myocardial infarction Hypertension Assessment/Plan Acute respiratory insufficiency, acute exacerbation of COPD, has been oxygen dependent at home, feeling better at this time. Patient is being discharged. Non-ST elevation myocardial infarction, elevated troponin level, status post cardiac catheterization which showed patent bypass grafts as described below, probably troponin elevation is due to hypoxemia and small vessel disease. Continue conservative management and continue to monitor. Coronary artery disease status post CABG 3 using HILL to LAD, reversed SVG to OM1 and diagonal, done by Dr. Cho in July 2015. Most recent cardiac catheterization done April 23, 2016 and repeat cardiac catheterization was done on January 31, [address] Diehl which showed patent HILL to LAD, SVG to OM, SVG to diagonal with moderate disease at the proximal right coronary artery that did not change compared to the finding of 2015. Medical Therapy Was Recommended. Moderate aortic valve stenosis, calcified valve, valve area 1.1 cm, gradient across the valve is 54 mmHg at peak and 28 mmHg at mean. continue to monitor at this time. No changes are recommended Fluid overload due to congestive heart failure with acute diastolic left ventricular dysfunction secondary to coronary artery disease and hypertensive heart disease in addition to renal insufficiency. Started on diuretics, continue to monitor closely. Pulmonary hypertension secondary to COPD and diastolic dysfunction. Continue to monitor Hypertension, controlled. Continue to monitor BP/HR. Constipation- management per medical services Acute on chronic renal insufficiency, monitor renal function. Renal artery stenosis with history of right renal artery stent using Jasmin 5.0 x 12 mm stent in 2006. Patent right renal artery stent per most recent cardiac catheterization done April 2016. Continue to monitor. Hyperlipidemia, continue to monitor lipids History of renal cancer, status post surgery done at [facility], she has been followed by Dr. 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 Herron Clinical Quality Measures DVT/VTE Risk/Contraindication: Risk Factor Score Per Nursin RFS Level Per Nursing on Admit: 4+=Very High WILLAM KO MD Feb 03, 2018 14:46
[2018-02-04] MEDS ORDERED: amLODIPine 5 MG (NORVASC) TAB PO SCH (09:00)
== END 2018-02-03 13:50 | disposition home health service (06) | DRG 280 ==
LOC: ICU 14:25 → 4TH 02-01 18:14
PROVIDERS: ADMIT Family Medicine; ATTEND Family Medicine
PROC: 4A023N7 Measurement of Cardiac Sampling and Pressure, Left Heart, Percutaneous Approach (ICD-10-PCS; principal; 2018-01-30)
PROC: B2111ZZ Fluoroscopy of Multiple Coronary Arteries using Low Osmolar Contrast (ICD-10-PCS; 2018-01-30)
PROC: B2151ZZ Fluoroscopy of Left Heart using Low Osmolar Contrast (ICD-10-PCS; 2018-01-30)
PROC: B3101ZZ Fluoroscopy of Thoracic Aorta using Low Osmolar Contrast (ICD-10-PCS; 2018-01-30)
PROC: B4101ZZ Fluoroscopy of Abdominal Aorta using Low Osmolar Contrast (ICD-10-PCS; 2018-01-30)
PROC: B2131ZZ Fluoroscopy of Multiple Coronary Artery Bypass Grafts using Low Osmolar Contrast (ICD-10-PCS; 2018-01-30)
DX: I21.4 Non-ST elevation (NSTEMI) myocardial infarction (principal); I25.810 Atherosclerosis of coronary artery bypass graft(s) without angina pectoris; J96.02 Acute respiratory failure with hypercapnia; I13.0 Hypertensive heart and chronic kidney disease with heart failure and stage 1 through stage 4 chronic kidney disease, or unspecified chronic kidney disease; I50.33 Acute on chronic diastolic (congestive) heart failure; N18.9 Chronic kidney disease, unspecified; J18.9 Pneumonia, unspecified organism; N17.9 Acute kidney failure, unspecified; J44.1 Chronic obstructive pulmonary disease with (acute) exacerbation; J44.0 Chronic obstructive pulmonary disease with (acute) lower respiratory infection; T82.858A Stenosis of other vascular prosthetic devices, implants and grafts, initial encounter; I42.9 Cardiomyopathy, unspecified; E66.9 Obesity, unspecified; Z68.42 Body mass index [BMI] 45.0-49.9, adult; E11.9 Type 2 diabetes mellitus without complications; I35.0 Nonrheumatic aortic (valve) stenosis; I70.1 Atherosclerosis of renal artery; I27.23 Pulmonary hypertension due to lung diseases and hypoxia; E78.00 Pure hypercholesterolemia, unspecified; D63.1 Anemia in chronic kidney disease; F41.9 Anxiety disorder, unspecified; F32.9 Major depressive disorder, single episode, unspecified; C50.919 Malignant neoplasm of unspecified site of unspecified female breast; Z95.1 Presence of aortocoronary bypass graft; Z85.528 Personal history of other malignant neoplasm of kidney; Z87.891 Personal history of nicotine dependence; Z79.4 Long term (current) use of insulin; Z79.811 Long term (current) use of aromatase inhibitors; Z92.3 Personal history of irradiation
CPT/HCPCS: 36415; 71045; 75625; 80048; 80053; 80061; 82805; 82962; 83605; 83735; 83880; 84100; 84484; 85025; 85610; 87081; 93005; 93459; 94640; 94660; 94664; 94760; 94761

== ENCOUNTER → 2018-02-11 | Outpatient (CLI) | payer MEDICARE, MEDICAID ==
[~2018-02-11] MED LIST changes: +AMLO5TAB2 PO; +DOXY100C2 PO; +FLUT16SP22 NS; +HYDR25TA4 PO; +INSU100V5 SC; +IPRA3AMP INH; +LEVO750T9 PO; +METH4TAB10 PO; +MONT10TA24 PO; +ONDA8TAB12 PO; +RT-ALBUINH INH; +UMEC62.5 INH
--- NOTE | 2018-02-11 18:05 | Diagnostic Imaging Report ---
EXAMINATION: PA and lateral Chest at 12:52 p.m. INDICATION: Pneumonia. FINDINGS: The appearance of the chest has improved since the prior exam of 02/03/2018 as the pneumonia/atelectasis involving the right lung base has diminished. There is still some residual pneumonia/atelectasis and fluid present. This is best visualized on the lateral view. The right upper lung and left lung are generally clear. The heart is stable in size. The mediastinum is not widened. The osseous structures are intact. IMPRESSION: The appearance of the chest has improved since the prior exam as the right lung base does seem better aerated. However, there is still residual pneumonia/atelectasis and fluid present. A followup study would be recommended for continued evaluation. Dictated by: Dictated on workstation # [id number]
== END ==
LOC: RAD 12:23
PROVIDERS: ATTEND Family Medicine
DX: J18.9 Pneumonia, unspecified organism (principal); I50.9 Heart failure, unspecified
CPT/HCPCS: 71046

== ENCOUNTER 2018-05-31 10:12 | Outpatient (RCR) | payer MEDICARE, MEDICAID ==
[2018-03-08 09:09] LABS: BASOPHILS % (AUTO) 0 % (0-10); EOSINOPHILS # (AUTO) 0.1 10^3/uL (0.0-0.3); EOSINOPHILS % (AUTO) 2 % (0-10); HEMATOCRIT 33 % (35-52); LYMPHOCYTES # (AUTO) 1.2 X 10^3 (1.0-4.0); LYMPHOCYTES % (AUTO) 19 % (12-44); MEAN CORPUSCULAR HEMOGLOBIN 28 PG (25-34); MEAN CORPUSCULAR HGB CONC 30 G/DL (32-36); MEAN CORPUSCULAR VOLUME 94 FL (80-99); MEAN PLATELET VOLUME 9.8 FL (7.4-10.4); MONOCYTES # (AUTO) 0.5 X 10^3 (0.0-1.0); MONOCYTES % (AUTO) 8 % (0-12); NEUTROPHILS # (AUTO) 4.5 X 10^3 (1.8-7.8); NEUTROPHILS % (AUTO) 71 % (42-75); PLATELET COUNT 182 10^3/uL (130-400); RED BLOOD COUNT 3.52 10^6/uL (4.35-5.85); RED CELL DISTRIBUTION WIDTH 14.2 % (10.0-14.5); WHITE BLOOD COUNT 6.3 10^3/uL (4.3-11.0)
[2018-03-08 09:29] LABS: ALBUMIN 3.7 GM/DL (3.2-4.5); BILIRUBIN,TOTAL 0.3 MG/DL (0.1-1.0); CALCIUM 9.4 MG/DL (8.5-10.1); CREATININE SERUM 1.32 MG/DL (0.60-1.30); POTASSIUM 4.4 MMOL/L (3.6-5.0); TOTAL PROTEIN 6.8 GM/DL (6.4-8.2)
[~2018-05-31 10:12] MED LIST changes: -IPRA3AMP INH; +IPRA3AMP31 INH; -METF1000 PO; +METF10002 PO
[2018-05-31 10:23] LABS: BASOPHILS % (AUTO) 0 % (0-10); EOSINOPHILS # (AUTO) 0.2 10^3/uL (0.0-0.3); EOSINOPHILS % (AUTO) 2 % (0-10); HEMATOCRIT 34 % (35-52); HEMOGLOBIN 10.6 G/DL (11.5-16.0); LYMPHOCYTES # (AUTO) 1.1 X 10^3 (1.0-4.0); LYMPHOCYTES % (AUTO) 15 % (12-44); MEAN CORPUSCULAR HEMOGLOBIN 29 PG (25-34); MEAN CORPUSCULAR HGB CONC 31 G/DL (32-36); MEAN CORPUSCULAR VOLUME 92 FL (80-99); MEAN PLATELET VOLUME 9.9 FL (7.4-10.4); MONOCYTES # (AUTO) 0.5 X 10^3 (0.0-1.0); MONOCYTES % (AUTO) 7 % (0-12); NEUTROPHILS # (AUTO) 5.4 X 10^3 (1.8-7.8); NEUTROPHILS % (AUTO) 76 % (42-75); PLATELET COUNT 195 10^3/uL (130-400); RED BLOOD COUNT 3.68 10^6/uL (4.35-5.85); RED CELL DISTRIBUTION WIDTH 14.5 % (10.0-14.5); WHITE BLOOD COUNT 7.1 10^3/uL (4.3-11.0)
[2018-05-31 10:42] LABS: ALBUMIN 3.7 GM/DL (3.2-4.5); BILIRUBIN,TOTAL 0.4 MG/DL (0.1-1.0); CALCIUM 9.6 MG/DL (8.5-10.1); CREATININE SERUM 0.99 MG/DL (0.60-1.30); POTASSIUM 4.4 MMOL/L (3.6-5.0); TOTAL PROTEIN 6.5 GM/DL (6.4-8.2)
== END 2018-06-06 | disposition home or self-care (01) ==
LOC: ONC 10:12
PROVIDERS: ATTEND Internal Medicine Hematology & Oncology
DX: C50.911 Malignant neoplasm of unspecified site of right female breast (principal); Z85.528 Personal history of other malignant neoplasm of kidney; I25.10 Atherosclerotic heart disease of native coronary artery without angina pectoris; J44.9 Chronic obstructive pulmonary disease, unspecified; M17.0 Bilateral primary osteoarthritis of knee; I10 Essential (primary) hypertension; E11.9 Type 2 diabetes mellitus without complications; D64.9 Anemia, unspecified; K64.9 Unspecified hemorrhoids; Z90.12 Acquired absence of left breast and nipple; Z79.82 Long term (current) use of aspirin; Z99.81 Dependence on supplemental oxygen; Z87.891 Personal history of nicotine dependence; Z96.651 Presence of right artificial knee joint
CPT/HCPCS: 36415; 80053; 85025; 99213

== ENCOUNTER → 2018-07-28 | Outpatient (CLI) | payer MEDICARE, MEDICAID ==
[~2018-07-28] MED LIST changes: -AMLO5TAB2 PO; +AMLO5TAB7 PO; +METF-399 PO; -METF10002 PO
--- NOTE | 2018-07-28 14:19 | Diagnostic Imaging Report ---
INDICATION: Pain from mid metacarpals to the mid forearm over the past two days. No known injury. Swelling. TECHNIQUE: Three views of the right wrist. CORRELATION STUDY: None. FINDINGS: Diffuse bony demineralization is present. No acute fracture suggested. Alignment relatively anatomic. There is some asymmetric degenerative change and joint space narrowing of the first carpometacarpal articulation. Mild marginal osteophyte formation of the trapezium. Prominent severity vascular calcification. Mild soft tissue swelling. IMPRESSION: 1. Negative for acute bony abnormality about the right wrist. 2. Rather pronounced bony demineralization. Vascular calcification. Dictated by: Dictated on workstation # [id number]
== END ==
LOC: RAD 11:53
PROVIDERS: ATTEND Family Medicine
DX: M79.89 Other specified soft tissue disorders (principal); I99.8 Other disorder of circulatory system
CPT/HCPCS: 73110

== ENCOUNTER 2018-09-24 20:40 | Emergency (ER) | payer MEDICARE, MEDICAID ==
[~2018-09-24] VITALS: Ht 160 cm; Wt 87.5 kg
[2018-09-24] MEDS ORDERED: OXYMETAZOLINE (AFRIN) 0.05% NA 15 ML BTL ONE (21:54)
--- NOTE | 2018-09-24 22:54 | ED EENT ---
History of Present Illness General Chief Complaint: Nasal Problems Stated Complaint: NOSE BLEED/TAKES ASPIRIN Source: patient Exam Limitations: no limitations History of Present Illness Date Seen by Provider: Sep 24, 2018 Time Seen by Provider: 22:00 Initial Comments To ER with a right-sided nosebleed for the past few hours. She is on aspirin and Plavix for coronary artery disease. She does wear oxygen [id number] at home for COPD. Timing/Duration: abrupt Severity: moderate Allergies and Home Medications Allergies Coded Allergies: Penicillins (Verified Allergy, Unknown, 02/17/07) morphine (Verified Adverse Reaction, Intermediate, NAUSEA VOMITING, ) I GAVE PT MORPHINE, SHE BECAME NAUSEATED ET VOMITED, SHE STATES, "I DID NOT KNOW YOU WERE GIVING ME MORPHINE, IT MAKES ME SICK!" Uncoded Allergies: statins (Adverse Reaction, Intermediate, 07/06/13) Home Medications Albuterol Sulfate 1 Puff Puff, 2 PUFF INH Q4H PRN for SHORTNESS OF BREATH, ( Reported) Amlodipine Besylate 5 Mg Tablet, 5 MG PO DAILY Prescribed by: JOHNNIE BURNS on 02/03/181123 Anastrozole 1 Mg Tablet, 1 MG PO DAILY, (Reported) Aspirin 81 Mg Tablet.dr, 81 MG PO DAILY, (Reported) Carvedilol 12.5 Mg Tablet, 12.5 MG PO BID, (Reported) Clopidogrel Bisulfate 75 Mg Tablet, 75 MG PO DAILY Prescribed by: JOHNNIE BURNS on 02/03/181123 Colesevelam HCl 625 Mg Tablet, 1,875 MG PO BID, (Reported) TAKES 3 (625MG) TABLETS Docusate Sodium 100 Mg Capsule, 100 MG PO DAILY PRN for CONSTIPATION-1ST LINE, ( Reported) Fluticasone Propionate 16 Gm [place].susp, 2 SPRAYS NS DAILY, (Reported) Hydrochlorothiazide 25 Mg Tablet, 25 MG PO DAILY, (Reported) Insulin Determir 1,000 Units/10 Ml Soln, 20 UNITS SC HS, (Reported) Ipratropium/Albuterol Sulfate 3 Ml Ampul.neb, 3 ML INH RTQ4HR Prescribed by: JOHNNIE BURNS on 02/03/181123 Levofloxacin 750 Mg Tablet, 750 MG PO DAILY Prescribed by: JOHNNIE BURNS on 02/03/181123 Montelukast Sodium 10 Mg Tablet, 10 MG PO HS, (Reported) [place] 3 Polyunsat Fatty Acids 1,000 Mg Cap, 1,000 MG PO DAILY, (Reported) [place] 3 Polyunsat Fatty Acids 1,000 Mg Cap, 2,000 MG PO HS, (Reported) Ondansetron HCl 8 Mg Tablet, 8 MG PO TID PRN for NAUSEA/VOMITING-1ST LINE, ( Reported) Sertraline HCl 100 Mg Tablet, 100 MG PO DAILY, (Reported) Umeclidinium [place] 62.5 Mcg Blst.w.dev, 1 PUFF INH DAILY, (Reported) [Legatrin Pm] , 1 TAB PO HS PRN for CRAMPS, (Reported) Patient Home Medication List Home Medication List Reviewed: Yes Review of Systems Review of Systems Constitutional: see HPI Eyes: No Symptoms Reported Ears: No Symptoms Reported Nose: see HPI, epistaxis Mouth: no symptoms reported Throat: no symptoms reported Respiratory: no symptoms reported Cardiovascular: no symptoms reported Past Qaliejv-Yaudpq-Nznkdf Hx Patient Social History Type Used: Cigarettes Former Smoker, Quit: Apr 23, 2002 Recent Foreign Travel: No Contact w/Someone Who Travel: No Recent Hopitalizations: Yes Immunizations Up To Date Tetanus Booster (TDap): Less than 5yrs Date of Pneumonia Vaccine: Jul 15, 2015 Date of Influenza Vaccine: Sep 18, 2017 Seasonal Allergies Seasonal Allergies: No Past Medical History Surgeries: Yes (KIDNEY ABLATION-FORM TUMOR, R TKR, THROAT X3, DENTAL, CATARACTS , RENAL STEN) Breast, CABG, Section, Gallbladder, Open Heart Surgery, Orthopedic, Tubal Ligation Respiratory: Yes COPD Cardiac: Yes Cardiomyopathy, Coronary Artery Disease, High Cholesterol, Hypertension Neurological: No Reproductive Disorders: No Female Reproductive Disorders: Denies Sexually Transmitted Disease: No HIV/AIDS: No Genitourinary: No Renal Failure Gastrointestinal: Yes Gall Bladder Disease Musculoskeletal: Yes (SCIATIC NERVE PAIN) Arthritis Endocrine: Yes Diabetes, Insulin dep HEENT: Yes Cataract, Glaucoma Loss of Vision: Bilateral Hearing Impairment: Denies Cancer: Yes (KIDNEY TUMOR) Breast, Kidney Did You Recieve Any Treatments: Yes What Type of Treatment Did You: Radiation, Surgical Intervention Psychosocial: No Anxiety, Depression Integumentary: No Blood Disorders: Yes ( 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 6.0oz. [id number]; 44.3 BMI Method:Stated General Appearance: WD/WN, no apparent distress Eyes: bilateral eye normal inspection, bilateral eye PERRL, bilateral eye EOMI Ears: bilateral ear auricle normal, bilateral ear canal normal, bilateral ear TM normal Nose: other (there was a very large clot in the right nostril. This was removed with suction. There was brisk bleeding from a rather large area to the right anterior nasal septum. This was cauterized with silver nitrate. 2 Merocel sponges were then placed and soaked in Afrin. After this there was no blood from either nostril and no blood in the oropharynx. We will observe for about 30 minutes.) Respiratory: normal breath sounds, no respiratory distress, no accessory muscle use Gastrointestinal: normal bowel sounds, non tender Skin: normal color Progress/Results/Core Measures Results/Orders My Orders Orders - LYLE TURNER APRN Oxymetazoline 0.05% Nasal Luna (Afrin 0. (09/24/18 21:54) Medications Given in ED Current Medications Medications Dose Ordered Sig/Gil Route Start Time Stop Time Status Last Admin Dose Admin Oxymetazoline HCl 15 ml STK-MED ONCE .ROUTE 09/24/18 21:54 09/24/18 21:56 DC 09/24/18 21:54 15 ML Departure Communication (Admissions) 0499-there is still no blood in the oropharynx or from either nostril. The 2 Meroc[address] sponges remain in place. She wears oxygen per nasal cannula at home at 2 -4 L. I will transition her to a simple mask to use in the meantime while she has this packing in place. I will discharge her to home with the packing with instructions to remove this very gently tomorrow at about noon. If she has a recurrence of bleeding she should return to the emergency room. If she does not have any recurrent bleeding, she can follow-up next week with primary care. Impression Primary Impression: Epistaxis Disposition: HOME, SELF-CARE Condition: Stable Departure-Patient Inst. Decision time for Depature: 22:53 Referrals: ALEXANDRU CASAS MD (PCP/Family) Primary Care Physician Patient Instructions: Nosebleeds (DC) Add. Discharge Instructions: 1. Return to ER for any concerns. Remove this packing by simply pulling on the strings tomorrow at about noon. Apply a few more drops of Afrin to the right side of the nostril tonight and tomorrow morning. Return to ER between now and then if you develop any recurrent bleeding or other concerns. Wear the oxygen mask instead of the nasal cannula for the next 1-2 days. Follow-up with your primary care provider on Thursday. If you develop recurrent bleeding after removing this nasal packing tomorrow return to the emergency room. All discharge instructions reviewed with patient and/or family. Voiced understanding. LYLE TURNER APRN Sep 24, 2018 22:54
[2018-09-24 23:01] VITALS: BP 149/92
== END 2018-09-24 23:01 | disposition home or self-care (01) ==
LOC: EDUNIT# 20:40 → ER 20:41
DX: R04.0 Epistaxis (principal); J44.9 Chronic obstructive pulmonary disease, unspecified; I42.9 Cardiomyopathy, unspecified; E78.00 Pure hypercholesterolemia, unspecified; I10 Essential (primary) hypertension; E11.9 Type 2 diabetes mellitus without complications; F41.9 Anxiety disorder, unspecified; F32.9 Major depressive disorder, single episode, unspecified; I25.10 Atherosclerotic heart disease of native coronary artery without angina pectoris; Z96.651 Presence of right artificial knee joint; Z95.1 Presence of aortocoronary bypass graft; Z82.49 Family history of ischemic heart disease and other diseases of the circulatory system; Z87.448 Personal history of other diseases of urinary system; Z85.3 Personal history of malignant neoplasm of breast; Z85.528 Personal history of other malignant neoplasm of kidney; Z98.890 Other specified postprocedural states; Z98.51 Tubal ligation status; Z87.891 Personal history of nicotine dependence; Z88.0 Allergy status to penicillin; Z88.5 Allergy status to narcotic agent; Z88.8 Allergy status to other drugs, medicaments and biological substances; Z79.51 Long term (current) use of inhaled steroids; Z79.82 Long term (current) use of aspirin; Z79.02 Long term (current) use of antithrombotics/antiplatelets; Z79.4 Long term (current) use of insulin; Z99.81 Dependence on supplemental oxygen
CPT/HCPCS: 99284

== ENCOUNTER 2018-10-05 13:52 | Outpatient (RCR) | payer MEDICARE, MEDICAID ==
[2018-09-08 14:45] LABS: BASOPHILS % (AUTO) 0 % (0-10); EOSINOPHILS # (AUTO) 0.1 10^3/uL (0.0-0.3); EOSINOPHILS % (AUTO) 1 % (0-10); HEMATOCRIT 40 % (35-52); HEMOGLOBIN 12.4 G/DL (11.5-16.0); LYMPHOCYTES # (AUTO) 1.6 X 10^3 (1.0-4.0); LYMPHOCYTES % (AUTO) 15 % (12-44); MEAN CORPUSCULAR HEMOGLOBIN 28 PG (25-34); MEAN CORPUSCULAR HGB CONC 31 G/DL (32-36); MEAN CORPUSCULAR VOLUME 90 FL (80-99); MEAN PLATELET VOLUME 9.8 FL (7.4-10.4); MONOCYTES # (AUTO) 0.6 X 10^3 (0.0-1.0); MONOCYTES % (AUTO) 6 % (0-12); NEUTROPHILS # (AUTO) 8.2 X 10^3 (1.8-7.8); NEUTROPHILS % (AUTO) 78 % (42-75); PLATELET COUNT 232 10^3/uL (130-400); RED BLOOD COUNT 4.38 10^6/uL (4.35-5.85); RED CELL DISTRIBUTION WIDTH 13.2 % (10.0-14.5); WHITE BLOOD COUNT 10.6 10^3/uL (4.3-11.0)
[2018-09-08 15:05] LABS: ALBUMIN 3.9 GM/DL (3.2-4.5); BILIRUBIN,TOTAL 0.5 MG/DL (0.1-1.0); CREATININE SERUM 1.15 MG/DL (0.60-1.30); POTASSIUM 4.7 MMOL/L (3.6-5.0); TOTAL PROTEIN 7.1 GM/DL (6.4-8.2)
== END 2018-11-15 14:37 | disposition home or self-care (01) ==
LOC: ONC 13:52
PROVIDERS: ATTEND Internal Medicine Hematology & Oncology
DX: C50.111 Malignant neoplasm of central portion of right female breast (principal); C64.1 Malignant neoplasm of right kidney, except renal pelvis; I25.10 Atherosclerotic heart disease of native coronary artery without angina pectoris; J44.9 Chronic obstructive pulmonary disease, unspecified; M17.0 Bilateral primary osteoarthritis of knee; I10 Essential (primary) hypertension; E11.9 Type 2 diabetes mellitus without complications; D64.9 Anemia, unspecified; K64.9 Unspecified hemorrhoids; Z90.12 Acquired absence of left breast and nipple; Z79.810 Long term (current) use of selective estrogen receptor modulators (SERMs); Z79.02 Long term (current) use of antithrombotics/antiplatelets; Z79.82 Long term (current) use of aspirin; Z99.81 Dependence on supplemental oxygen; Z87.891 Personal history of nicotine dependence; Z96.651 Presence of right artificial knee joint
CPT/HCPCS: 36415; 80053; 85025; 99213

== ENCOUNTER → 2019-01-27 | Outpatient (CLI) | payer MEDICARE, MEDICAID ==
[~2019-01-27] MED LIST changes: -AMLO5TAB7 PO; +AMLO5TAB9 PO
--- NOTE | 2019-01-27 18:55 | Diagnostic Imaging Report ---
INDICATION: Right breast carcinoma. Correlation is made with prior mammogram from 01/25/2018. 2-D and 3-D bilateral diagnostic mammography was performed with Computer-Aided Detection (CAD) system. FINDINGS: Scattered fibroglandular densities are identified bilaterally. Post therapeutic changes in the right breast are again noted. Skin thickening previously noted has significantly improved. No new mass or malignant-appearing microcalcifications are seen. There are benign calcifications bilaterally. Axillae are unremarkable. IMPRESSION: Improvement in skin thickening on the right. There are post therapeutic changes on the right. No mammographic features suspicious for malignancy are identified. ACR BI-RADS Category 2: Benign findings. Result letter will be mailed to the patient. Note: At least 10% of breast cancer is not imaged by mammography. Dictated by: Dictated on workstation # [id number]
== END ==
LOC: RAD 09:12
PROVIDERS: ATTEND Internal Medicine Hematology & Oncology
DX: C50.111 Malignant neoplasm of central portion of right female breast (principal)
CPT/HCPCS: 77066

== ENCOUNTER → 2019-02-08 | Outpatient (CLI) | payer MEDICARE, MEDICAID | LOC: CARD 13:04 | PROVIDERS: ATTEND Internal Medicine Cardiovascular Disease | DX: I65.23 Occlusion and stenosis of bilateral carotid arteries (principal); I25.811 Atherosclerosis of native coronary artery of transplanted heart without angina pectoris; I12.9 Hypertensive chronic kidney disease with stage 1 through stage 4 chronic kidney disease, or unspecified chronic kidney disease; E78.5 Hyperlipidemia, unspecified; E11.9 Type 2 diabetes mellitus without complications; N18.9 Chronic kidney disease, unspecified | CPT/HCPCS: 93306 ==

== ENCOUNTER 2019-02-10 10:23 | Outpatient (RCR) | payer MEDICARE, MEDICAID ==
[2019-02-10 10:53] LABS: BASOPHILS % (AUTO) 0 % (0-10); EOSINOPHILS # (AUTO) 0.1 10^3/uL (0.0-0.3); EOSINOPHILS % (AUTO) 2 % (0-10); HEMATOCRIT 37 % (35-52); HEMOGLOBIN 11.9 G/DL (11.5-16.0); LYMPHOCYTES # (AUTO) 1.3 X 10^3 (1.0-4.0); LYMPHOCYTES % (AUTO) 17 % (12-44); MEAN CORPUSCULAR HEMOGLOBIN 30 PG (25-34); MEAN CORPUSCULAR HGB CONC 32 G/DL (32-36); MEAN CORPUSCULAR VOLUME 94 FL (80-99); MEAN PLATELET VOLUME 10.5 FL (7.4-10.4); MONOCYTES # (AUTO) 0.6 X 10^3 (0.0-1.0); MONOCYTES % (AUTO) 8 % (0-12); NEUTROPHILS # (AUTO) 5.6 X 10^3 (1.8-7.8); NEUTROPHILS % (AUTO) 74 % (42-75); PLATELET COUNT 172 10^3/uL (130-400); RED CELL DISTRIBUTION WIDTH 12.8 % (10.0-14.5); WHITE BLOOD COUNT 7.6 10^3/uL (4.3-11.0)
[2019-02-10 11:14] LABS: ALBUMIN 3.7 GM/DL (3.2-4.5); BILIRUBIN,TOTAL 0.5 MG/DL (0.1-1.0); CALCIUM 9.5 MG/DL (8.5-10.1); CREATININE SERUM 1.15 MG/DL (0.60-1.30); POTASSIUM 4.8 MMOL/L (3.6-5.0); TOTAL PROTEIN 6.2 GM/DL (6.4-8.2)
== END 2019-02-14 | disposition home or self-care (01) ==
LOC: ONC 10:23
PROVIDERS: ATTEND Internal Medicine Hematology & Oncology
DX: C50.111 Malignant neoplasm of central portion of right female breast (principal); C64.1 Malignant neoplasm of right kidney, except renal pelvis; I25.10 Atherosclerotic heart disease of native coronary artery without angina pectoris; J44.9 Chronic obstructive pulmonary disease, unspecified; M17.0 Bilateral primary osteoarthritis of knee; I10 Essential (primary) hypertension; E11.9 Type 2 diabetes mellitus without complications; D64.9 Anemia, unspecified; K64.9 Unspecified hemorrhoids; Z90.12 Acquired absence of left breast and nipple; Z79.810 Long term (current) use of selective estrogen receptor modulators (SERMs); Z79.02 Long term (current) use of antithrombotics/antiplatelets; Z79.82 Long term (current) use of aspirin; Z99.81 Dependence on supplemental oxygen; Z87.891 Personal history of nicotine dependence; Z96.651 Presence of right artificial knee joint
CPT/HCPCS: 36415; 80053; 85025; 99213

== ENCOUNTER → 2019-02-10 | Outpatient (CLI) | payer MEDICARE, MEDICAID ==
[2019-02-10 11:12] LABS: ALBUMIN 3.7 GM/DL (3.2-4.5); BILIRUBIN,TOTAL 0.5 MG/DL (0.1-1.0); CALCIUM 9.6 MG/DL (8.5-10.1); CREATININE SERUM 1.16 MG/DL (0.60-1.30); POTASSIUM 4.8 MMOL/L (3.6-5.0); TOTAL PROTEIN 6.5 GM/DL (6.4-8.2)
== END ==
LOC: LAB 10:38
PROVIDERS: ATTEND Internal Medicine Cardiovascular Disease
DX: I65.23 Occlusion and stenosis of bilateral carotid arteries (principal); I25.811 Atherosclerosis of native coronary artery of transplanted heart without angina pectoris; I10 Essential (primary) hypertension; E78.5 Hyperlipidemia, unspecified; E10.22 Type 1 diabetes mellitus with diabetic chronic kidney disease; N18.9 Chronic kidney disease, unspecified
CPT/HCPCS: 36415; 80053; 80061

== ENCOUNTER → 2019-04-26 | Outpatient (CLI) | payer MEDICARE, MEDICAID ==
[2019-04-26 10:29] LABS: BILIRUBIN,URINE NEGATIVE (NEGATIVE); CLARITY,URINE VERY CLOUDY; COLOR,URINE YELLOW; GLUCOSE, URINE (UA) NEGATIVE (NEGATIVE); KETONES,URINE NEGATIVE (NEGATIVE); LEUKOCYTE ESTERASE ,URINE NEGATIVE (NEGATIVE); NITRITE,URINE NEGATIVE (NEGATIVE); PH,URINE 5 (5-9); PROTEIN,URINE 3+ (NEGATIVE); UROBILINOGEN,URINE NORMAL (NORMAL)
[2019-04-26 10:38] LABS: RBC,URINE RARE /HPF; WBC,URINE 0-2 /HPF
[2019-04-26 10:39] LABS: BACTERIA,URINE MODERATE /HPF
== END ==
LOC: LAB 10:09
PROVIDERS: ATTEND Thoracic Surgery (Cardiothoracic Vascular Surgery)
DX: Z01.818 Encounter for other preprocedural examination (principal); N39.0 Urinary tract infection, site not specified
CPT/HCPCS: 81000

== ENCOUNTER → 2019-05-16 | Outpatient (CLI) | payer MEDICARE, MEDICAID ==
--- NOTE | 2019-05-16 09:28 | Diagnostic Imaging Report ---
PROCEDURE: CT abdomen and pelvis without contrast. TECHNIQUE: Multiple contiguous axial images were obtained through the abdomen and pelvis without the use of intravenous contrast. Auto Exposure Controls were utilized during the CT exam to meet ALARA standards for radiation dose reduction. INDICATION: Left renal cell carcinoma. Correlation is made with prior CT from 08/14/2016. The lung bases are clear. No discrete liver mass is identified. Gallbladder is surgically absent. No biliary duct dilatation is seen. Previously noted cystic lesion in the pancreatic neck is not as well seen due to absence of intravenous contrast. No pancreatic mass is identified. The spleen is unremarkable. Configuration of the adrenal glands is similar to prior study. Very slight nodularity involving the inferior aspect of the left adrenal gland is similar to prior exam. Right kidney is unremarkable. The previously noted left renal mass is not as well seen due to absence of intravenous contrast. Overall size and configuration of the left kidney and known left renal mass region appears to be stable. No calculi or hydronephrosis is identified. Aorta and iliac vessels are heavily calcified. No central retroperitoneal or mesenteric lymphadenopathy is seen. Small area of nodularity adjacent to the inferior right lobe of the liver appears slightly less prominent on today's study. Bowel loops are normal caliber. Appendix is unremarkable. There is no ascites. There is mild diverticulosis of the sigmoid but no acute diverticulitis. The uterus and bladder are unremarkable. No definite pelvic lymphadenopathy is seen. Bony structures are not acute. IMPRESSION: Somewhat compromised study due to absence of intravenous contrast. This does make evaluation of the known left renal mass and pancreatic cystic lesion difficult. No new abnormality is seen. No significant change has occurred since prior exam. Dictated by: Dictated on workstation # [id number]
== END ==
LOC: RAD 07:48
PROVIDERS: ATTEND Urology
DX: C64.2 Malignant neoplasm of left kidney, except renal pelvis (principal); K86.2 Cyst of pancreas; Z90.49 Acquired absence of other specified parts of digestive tract
CPT/HCPCS: 74176

== ENCOUNTER → 2019-08-18 | Outpatient (CLI) | payer MEDICARE, MEDICAID ==
[2019-08-18 10:56] LABS: BASOPHILS % (AUTO) 0 % (0-10); EOSINOPHILS # (AUTO) 0.1 10^3/uL (0.0-0.3); EOSINOPHILS % (AUTO) 1 % (0-10); HEMATOCRIT 37 % (35-52); HEMOGLOBIN 11.7 G/DL (11.5-16.0); LYMPHOCYTES # (AUTO) 1.3 X 10^3 (1.0-4.0); LYMPHOCYTES % (AUTO) 21 % (12-44); MEAN CORPUSCULAR HEMOGLOBIN 29 PG (25-34); MEAN CORPUSCULAR HGB CONC 32 G/DL (32-36); MEAN CORPUSCULAR VOLUME 92 FL (80-99); MONOCYTES # (AUTO) 0.6 X 10^3 (0.0-1.0); MONOCYTES % (AUTO) 9 % (0-12); NEUTROPHILS # (AUTO) 4.3 X 10^3 (1.8-7.8); NEUTROPHILS % (AUTO) 69 % (42-75); PLATELET COUNT 169 10^3/uL (130-400); RED CELL DISTRIBUTION WIDTH 12.7 % (10.0-14.5); WHITE BLOOD COUNT 6.2 10^3/uL (4.3-11.0)
[2019-08-18 11:19] LABS: ALBUMIN 3.5 GM/DL (3.2-4.5); BILIRUBIN,TOTAL 0.4 MG/DL (0.1-1.0); CALCIUM 9.2 MG/DL (8.5-10.1); CREATININE SERUM 1.07 MG/DL (0.60-1.30); POTASSIUM 4.6 MMOL/L (3.6-5.0); TOTAL PROTEIN 6.4 GM/DL (6.4-8.2)
== END ==
LOC: ONC 10:41
PROVIDERS: ATTEND Internal Medicine Hematology & Oncology
DX: C50.111 Malignant neoplasm of central portion of right female breast (principal); C64.2 Malignant neoplasm of left kidney, except renal pelvis; Z17.0 Estrogen receptor positive status [ER+]; J43.8 Other emphysema; I10 Essential (primary) hypertension; I25.10 Atherosclerotic heart disease of native coronary artery without angina pectoris; I65.29 Occlusion and stenosis of unspecified carotid artery; J30.9 Allergic rhinitis, unspecified; E11.9 Type 2 diabetes mellitus without complications; E78.5 Hyperlipidemia, unspecified; M17.0 Bilateral primary osteoarthritis of knee; D64.9 Anemia, unspecified; Z95.2 Presence of prosthetic heart valve; Z87.891 Personal history of nicotine dependence; Z96.651 Presence of right artificial knee joint; Z79.4 Long term (current) use of insulin; Z99.81 Dependence on supplemental oxygen; Z79.899 Other long term (current) drug therapy
CPT/HCPCS: 36415; 80053; 85025; 99213

== ENCOUNTER → 2019-12-20 | Outpatient (CLI) | payer MEDICARE ==
--- NOTE | 2019-12-20 08:52 | Diagnostic Imaging Report ---
PROCEDURE: CT abdomen and pelvis without contrast. TECHNIQUE: Multiple contiguous axial images were obtained through the abdomen and pelvis without the use of intravenous contrast. Auto Exposure Controls were utilized during the CT exam to meet ALARA standards for radiation dose reduction. INDICATION: Left renal cell carcinoma. Study compared 05/16/2019. FINDINGS: Sensitivity again substantially degraded by the lack of contrast media. Relative to the remaining left renal cortical parenchyma hyperdense nodule in the mid to lower 3rd of the left kidney laterally measures approximately 2.6 cm long axis not definitively changed from prior. No evidence for hemorrhage. No hydronephrosis. A tiny 5 mm fat-containing benign nodule in the upper pole of the right kidney is stable. The atherosclerotic aorta is nonaneurysmal. There is no perinephric or retroperitoneal lymphadenopathy. The gallbladder is surgically absent. No biliary dilatation. The adrenals unremarkable. The pancreas appeared nonfocal and nonacute at this nonenhanced exam. Uterus, adnexa and urinary bladder unremarkable. There was no suspicious lytic or sclerotic bony lesion. Lung bases nonacute. IMPRESSION: Left renal lesion not grossly changed from prior evaluation severely limited by the absence of contrast. No findings suggestive of metastatic disease, obstructive phenomena, inflammatory process or other acute abnormalities. Dictated by: Dictated on workstation # [id number]
== END ==
LOC: RAD 07:42
PROVIDERS: ATTEND Urology
DX: C64.2 Malignant neoplasm of left kidney, except renal pelvis (principal)
CPT/HCPCS: 74176

== ENCOUNTER → 2020-04-13 | Outpatient (CLI) | payer MEDICAID, MEDICARE ==
[~2020-04-13] MED LIST changes: -MONT10TA24 PO; +MONT10TA26 PO; -ONDA8TAB12 PO; +ONDA8TAB15 PO
--- NOTE | 2020-04-13 21:17 | Diagnostic Imaging Report ---
INDICATION: Patient has history of self breast cancer on the right, presenting for annual diagnostic surveillance. COMPARISON: 01/2019, 01/2018 and 01/2017. EXAMINATION: 3D bilateral diagnostic mammogram with CAD. FINDINGS: 2D and 3D digital mammograms with CAD were performed. The current study was also evaluated with a Computer Aided Detection (CAD) system. Post-therapeutic distortion in the right breast, at the site of lumpectomy, is stable. Some benign type calcifications is stable. The left breast is otherwise unremarkable. No suspicious finding or adverse change. IMPRESSION: Stable benign postsurgical sequelae. ACR BI-RADS Category 2: Benign findings. Result letter will be mailed to the patient. Note: At least 10% of breast cancer is not imaged by mammography. Dictated by: Dictated on workstation # [id number]
== END ==
LOC: RAD 12:49
PROVIDERS: ATTEND Internal Medicine Hematology & Oncology
DX: C50.111 Malignant neoplasm of central portion of right female breast (principal)
CPT/HCPCS: 77062; 77066

== ENCOUNTER → 2020-04-16 | Outpatient (CLI) | payer MEDICARE ==
[2020-04-16 10:53] LABS: BASOPHILS % (AUTO) 0 % (0-10); EOSINOPHILS # (AUTO) 0.1 10^3/uL (0.0-0.3); EOSINOPHILS % (AUTO) 2 % (0-10); HEMATOCRIT 38 % (35-52); HEMOGLOBIN 11.9 G/DL (11.5-16.0); LYMPHOCYTES # (AUTO) 1.3 X 10^3 (1.0-4.0); LYMPHOCYTES % (AUTO) 18 % (12-44); MEAN CORPUSCULAR HEMOGLOBIN 30 PG (25-34); MEAN CORPUSCULAR HGB CONC 32 G/DL (32-36); MEAN CORPUSCULAR VOLUME 96 FL (80-99); MONOCYTES # (AUTO) 0.4 X 10^3 (0.0-1.0); MONOCYTES % (AUTO) 6 % (0-12); NEUTROPHILS # (AUTO) 5.5 X 10^3 (1.8-7.8); NEUTROPHILS % (AUTO) 75 % (42-75); PLATELET COUNT 149 10^3/uL (130-400); RED CELL DISTRIBUTION WIDTH 12.8 % (10.0-14.5); WHITE BLOOD COUNT 7.3 10^3/uL (4.3-11.0)
[2020-04-16 11:14] LABS: ALBUMIN 3.6 GM/DL (3.2-4.5); BILIRUBIN,TOTAL 0.4 MG/DL (0.1-1.0); CALCIUM 8.9 MG/DL (8.5-10.1); CREATININE SERUM 1.16 MG/DL (0.60-1.30); POTASSIUM 4.2 MMOL/L (3.6-5.0); TOTAL PROTEIN 5.7 GM/DL (6.4-8.2)
== END ==
LOC: ONC 10:37
PROVIDERS: ATTEND Internal Medicine Hematology & Oncology
DX: C50.511 Malignant neoplasm of lower-outer quadrant of right female breast (principal); N28.89 Other specified disorders of kidney and ureter; J44.9 Chronic obstructive pulmonary disease, unspecified; I25.10 Atherosclerotic heart disease of native coronary artery without angina pectoris; I10 Essential (primary) hypertension; E78.5 Hyperlipidemia, unspecified; E11.9 Type 2 diabetes mellitus without complications; D64.9 Anemia, unspecified
CPT/HCPCS: 80053; 85025; 99213

== ENCOUNTER → 2020-07-26 | Outpatient (CLI) | payer MEDICARE ==
--- NOTE | 2020-07-26 09:33 | Diagnostic Imaging Report ---
EXAMINATION: CT Abdomen Pelvis without contrast. TECHNIQUE: Multiple contiguous axial images were obtained through the abdomen and pelvis without the use of intravenous contrast. All CT scans use one or more of the following dose optimizing techniques: automated exposure control, MA and/or KvP adjustment based on a patient size and exam type, or iterative reconstruction. HISTORY: Renal cancer. COMPARISON: 12/20/2019 FINDINGS: Limited views of the lower thorax are unremarkable. The liver is normal without focal lesion. There is no biliary ductal dilation. Gallbladder is surgically absent. Pancreas is normal. Spleen is normal. Adrenal glands are normal. Left renal mass is difficult to separate from kidney in the absence of intravenous contrast. However, it measures at least 4.2 x 3.6 cm, previously 3.6 x 3.2 cm. On the prior contrast enhanced CT in 2015 it measured 2.8 x 2.2 cm. There is no hydronephrosis. Urinary bladder is normal. Visualized bowel is normal in caliber without obstruction or inflammation. No free fluid or air. No abdominal or pelvic lymphadenopathy. Aorta is normal in caliber without aneurysm. There are no suspicious osseus lesions. IMPRESSION: 1. Continued increase in size of left renal mass consistent with renal cell carcinoma. It now measures 4.2 x 3.6 cm. Dictated by: Dictated on workstation # [id number]
== END ==
LOC: RAD 08:45
PROVIDERS: ATTEND Urology
DX: N28.89 Other specified disorders of kidney and ureter (principal); Z85.528 Personal history of other malignant neoplasm of kidney
CPT/HCPCS: 74176

== ENCOUNTER → 2021-03-14 | Outpatient (CLI) | payer MEDICARE, MEDICAID ==
[~2021-03-14] MED LIST changes: +AMLO-250 PO; -AMLO5TAB9 PO; -MONT10TA26 PO; +MONT10TA32 PO; +SERT-414 PO
[2021-03-14 08:30] LABS: CREATININE SERUM 1.32 MG/DL (0.60-1.30)
--- NOTE | 2021-03-14 10:35 | Diagnostic Imaging Report ---
PROCEDURE: CT chest without contrast. TECHNIQUE: Multiple contiguous axial images were obtained through the chest without the use of intravenous contrast. Auto Exposure Controls were utilized during the CT exam to meet ALARA standards for radiation dose reduction. INDICATION: COPD, shortness of air, hypoxia. COMPARISON: Chest CT 07/30/2016. FINDINGS: Juxtapleural nodule in the left upper lobe posteriorly measured 6.1 mm today previously 5.2 mm in 2016. There is minimal change, may be a slice localization, this is believed chronic. A benign scar, air trapping and features of centrilobular emphysema are present and are chronic findings. There is a benign left lower lobe calcified granuloma in the superior segment stable. No suspicious mass. No findings of pneumonia or pulmonary edema. No effusion or pneumothorax. The atherosclerotic aorta is nonaneurysmal. No acute chest wall pathology. Partially visualized left mid to upper pole renal mass measures largest at the lowest cut of the study at about 5.8 x 4.4 cm. This is increased from prior although its again severely limited in terms of evaluation owing to the absence of contrast. On the most recent study I can measure it at roughly 3.4 x 2.7 cm maximal. The bilateral adrenal glands are negative. The incompletely visualized right kidney is unobstructed and nonacute. There is cholecystectomy with no acute appearing upper abdominal abnormality. There is no suspicious lytic or sclerotic bony lesion. No evidence for a fracture. IMPRESSION: 1. No findings of pneumonia, failure, pleural pathology or acute chest disease. 2. Background centrilobular emphysema and a juxtapleural scar in the left upper lobe is stable. 3. Partially visualized known left renal mass appears larger than on previous studies but no visualized metastatic deposit on today's exam. Dictated by: Dictated on workstation # [id number]
== END ==
LOC: RAD 09:15
PROVIDERS: ATTEND Nurse Practitioner Family
DX: Z13.83 Encounter for screening for respiratory disorder NEC (principal); J43.2 Centrilobular emphysema; N28.89 Other specified disorders of kidney and ureter
CPT/HCPCS: 36415; 71250; 82565; 84520

== ENCOUNTER → 2021-03-26 | Outpatient (CLI) | payer MEDICARE ==
[~2021-03-26] MED LIST changes: +RT-ALBUTEROL SULF 2.5 MG/3 ML PRE-MIX VIAL INH ONE
== END ==
LOC: RT 15:30
PROVIDERS: ATTEND Nurse Practitioner Family
DX: Z13.83 Encounter for screening for respiratory disorder NEC (principal); R06.00 Dyspnea, unspecified
CPT/HCPCS: 94060; 94726; 94729

== ENCOUNTER → 2021-04-01 | Outpatient (CLI) | payer MEDICARE ==
[~2021-04-01] MED LIST changes: -RT-ALBUTEROL SULF 2.5 MG/3 ML PRE-MIX VIAL INH ONE
[2021-04-01 08:57] LABS: BASOPHILS % (AUTO) 0 % (0-10); EOSINOPHILS # (AUTO) 0.1 10^3/uL (0.0-0.3); EOSINOPHILS % (AUTO) 2 % (0-10); HEMATOCRIT 35 % (35-52); HEMOGLOBIN 11.2 g/dL (11.5-16.0); LYMPHOCYTES # (AUTO) 1.1 10^3/uL (1.0-4.0); LYMPHOCYTES % (AUTO) 15 % (12-44); MEAN CORPUSCULAR HEMOGLOBIN 30 pg (25-34); MEAN CORPUSCULAR HGB CONC 32 g/dL (32-36); MEAN CORPUSCULAR VOLUME 94 fL (80-99); MEAN PLATELET VOLUME 10.6 fL (9.0-12.2); MONOCYTES # (AUTO) 0.5 10^3/uL (0.0-1.0); MONOCYTES % (AUTO) 6 % (0-12); NEUTROPHILS # (AUTO) 5.7 10^3/uL (1.8-7.8); NEUTROPHILS % (AUTO) 77 % (42-75); PLATELET COUNT 183 10^3/uL (130-400); WHITE BLOOD COUNT 7.4 10^3/uL (4.3-11.0)
[2021-04-01 09:09] LABS: ALBUMIN 3.4 GM/DL (3.2-4.5); POTASSIUM 5.2 MMOL/L (3.6-5.0)
[2021-04-01 09:10] LABS: CALCIUM 9.2 MG/DL (8.5-10.1)
[2021-04-01 09:11] LABS: TOTAL PROTEIN 6.3 GM/DL (6.4-8.2)
[2021-04-01 09:13] LABS: BILIRUBIN,TOTAL 0.4 MG/DL (0.1-1.0)
[2021-04-01 09:15] LABS: CREATININE SERUM 1.46 MG/DL (0.60-1.30)
== END ==
LOC: ONC 01:11
PROVIDERS: ATTEND Internal Medicine Hematology & Oncology
DX: C64.2 Malignant neoplasm of left kidney, except renal pelvis (principal); I25.10 Atherosclerotic heart disease of native coronary artery without angina pectoris; D64.9 Anemia, unspecified; M17.0 Bilateral primary osteoarthritis of knee; E11.9 Type 2 diabetes mellitus without complications; E78.2 Mixed hyperlipidemia; J43.9 Emphysema, unspecified; I10 Essential (primary) hypertension; E27.9 Disorder of adrenal gland, unspecified; K76.9 Liver disease, unspecified; K86.89 Other specified diseases of pancreas; M53.3 Sacrococcygeal disorders, not elsewhere classified; R41.3 Other amnesia; Z96.651 Presence of right artificial knee joint; Z85.3 Personal history of malignant neoplasm of breast; Z90.11 Acquired absence of right breast and nipple
CPT/HCPCS: 80053; 85025; G0463; 99213

== ENCOUNTER → 2021-04-09 | Outpatient (CLI) | payer MEDICARE, MEDICAID ==
[~2021-04-09] MED LIST changes: +GADOBUTROL 10 MMOL/10 ML (GADAVIST) VIAL IV ONE
--- NOTE | 2021-04-09 17:27 | Diagnostic Imaging Report ---
PROCEDURE: MRI lumbar spine. TECHNIQUE: Multiplanar, multisequence MRI of the lumbar spine was performed without contrast. DATE: April 09, 2021. COMPARISON: October 30, 2009. INDICATION: 70-year-old female, low back and sacral pain. History of breast cancer. FINDINGS: The alignment of the lumbar spine is unremarkable. There is no evidence of a diffuse marrow infiltrating or replacing process. There is no identified focal concerning bone lesion. There is no compression deformity or fracture. The visualized cord and conus medullaris is unremarkable and terminates at the L2 level. There is severe disc height loss at L2-L3 and L5-S1. There are adjacent endplate degenerative related marrow changes. There is moderate disc height loss at T12-L1. T12-L1: There is mild diffuse disc bulge. There is no foraminal stenosis or spinal stenosis. L1-L2: There is no disc bulge. The facet joints and ligamentum flavum are unremarkable. There is no foraminal narrowing. There is no spinal canal stenosis. L2-L3: There is diffuse disc bulge. There are mild bilateral facet degenerative changes without ligamentum flavum hypertrophy. There is mild to moderate right and moderate left foraminal narrowing. There is no high-grade spinal canal stenosis. L3-L4: There is no disc bulge. The facet joints and ligamentum flavum are unremarkable. There is no foraminal narrowing. There is no spinal canal stenosis. L4-L5: There is diffuse disc bulge. There is mild narrowing of the right lateral recess and moderate narrowing of the left lateral recess. There are bilateral facet degenerative changes with ligamentum flavum hypertrophy. There is a small right facet joint effusion. There is prominence of the posterior epidural fat. There is moderate right and severe left foraminal narrowing. There is moderate to severe spinal canal stenosis. L5-S1: There is diffuse disc bulge eccentric to the left. The facet joints and ligamentum flavum are unremarkable. There is moderate right and moderate to severe left foraminal narrowing. There is no spinal canal stenosis. IMPRESSION: 1. Multilevel disc and facet degenerative changes of the thoracolumbar spine as described in detail level by level above. 2. No evidence of metastatic disease to the lumbar spine. Dictated by: Dictated on workstation # [id number]
--- NOTE | 2021-04-09 17:31 | Diagnostic Imaging Report ---
Exam: MRI sacrum and sacroiliac joints without contrast. Date: April 09, 2021. Indication: 70-year-old female, history of breast cancer. Low back and sacral pain. Comparison: CT abdomen and pelvis July 26, 2020. Technique: Multiple noncontrast MRI sequences of the sacrum and sacroiliac joints were obtained. Findings: There is no identified acute fracture. The sacroiliac joints are unremarkable in appearance. There is no identified bone lesion in the included field of view concerning for a bone metastasis. Please see separately dictated MRI lumbar spine report for findings of the lumbar spine. Impression: 1. Unremarkable MRI of the sacrum and sacroiliac joints. 2. Please see separately dictated MRI lumbar spine report for findings of the lumbar spine. Dictated by: Dictated on workstation # [id number]
== END ==
LOC: RAD 13:15
PROVIDERS: ATTEND Internal Medicine Hematology & Oncology
DX: M48.061 Spinal stenosis, lumbar region without neurogenic claudication (principal); M51.25 Other intervertebral disc displacement, thoracolumbar region; M51.26 Other intervertebral disc displacement, lumbar region; M47.816 Spondylosis without myelopathy or radiculopathy, lumbar region; Z85.3 Personal history of malignant neoplasm of breast
CPT/HCPCS: 72148; 72195

== ENCOUNTER 2021-04-11 09:32 | Outpatient (RCR) | payer MEDICARE, MEDICAID ==
[~2021-04-11 09:32] MED LIST changes: -GADOBUTROL 10 MMOL/10 ML (GADAVIST) VIAL IV ONE
== END 2021-07-10 | disposition home or self-care (01) ==
LOC: ONC 09:32
PROVIDERS: ATTEND Internal Medicine Hematology & Oncology
DX: C50.911 Malignant neoplasm of unspecified site of right female breast (principal); C64.1 Malignant neoplasm of right kidney, except renal pelvis; I25.10 Atherosclerotic heart disease of native coronary artery without angina pectoris; M17.0 Bilateral primary osteoarthritis of knee; I10 Essential (primary) hypertension; J43.9 Emphysema, unspecified; E11.9 Type 2 diabetes mellitus without complications; D64.9 Anemia, unspecified; E78.2 Mixed hyperlipidemia; Z79.810 Long term (current) use of selective estrogen receptor modulators (SERMs); Z79.02 Long term (current) use of antithrombotics/antiplatelets; Z79.82 Long term (current) use of aspirin; Z99.81 Dependence on supplemental oxygen; Z87.891 Personal history of nicotine dependence; Z96.651 Presence of right artificial knee joint; Z92.3 Personal history of irradiation; Z90.11 Acquired absence of right breast and nipple; Z95.5 Presence of coronary angioplasty implant and graft; E66.9 Obesity, unspecified; Z79.899 Other long term (current) drug therapy
CPT/HCPCS: G0463 ×2; 99213

== ENCOUNTER 2021-10-10 12:47 | Outpatient (RCR) | payer MEDICARE, MEDICAID ==
[~2021-10-10 12:47] MED LIST changes: -DOXY100C2 PO; +DOXY100C5 PO; +MONT-40 PO; -MONT10TA32 PO; +ONDA-106 PO; -ONDA8TAB15 PO
[2021-10-10 12:57] LABS: BASOPHILS % (AUTO) 0 % (0-10); EOSINOPHILS # (AUTO) 0.1 10^3/uL (0.0-0.3); EOSINOPHILS % (AUTO) 1 % (0-10); HEMATOCRIT 35 % (35-52); HEMOGLOBIN 10.4 g/dL (11.5-16.0); LYMPHOCYTES # (AUTO) 1.4 10^3/uL (1.0-4.0); LYMPHOCYTES % (AUTO) 16 % (12-44); MEAN CORPUSCULAR HEMOGLOBIN 30 pg (25-34); MEAN CORPUSCULAR HGB CONC 30 g/dL (32-36); MEAN CORPUSCULAR VOLUME 100 fL (80-99); MEAN PLATELET VOLUME 10.7 fL (9.0-12.2); MONOCYTES # (AUTO) 0.6 10^3/uL (0.0-1.0); MONOCYTES % (AUTO) 7 % (0-12); NEUTROPHILS # (AUTO) 6.6 10^3/uL (1.8-7.8); NEUTROPHILS % (AUTO) 76 % (42-75); PLATELET COUNT 127 10^3/uL (130-400); WHITE BLOOD COUNT 8.7 10^3/uL (4.3-11.0)
[2021-10-10 13:17] LABS: ALBUMIN 3.2 GM/DL (3.2-4.5); BILIRUBIN,TOTAL 0.4 MG/DL (0.1-1.0); CALCIUM 8.8 MG/DL (8.5-10.1); CREATININE SERUM 1.62 MG/DL (0.60-1.30); POTASSIUM 4.8 MMOL/L (3.6-5.0); TOTAL PROTEIN 6.1 GM/DL (6.4-8.2)
== END 2021-10-28 | disposition home or self-care (01) ==
LOC: ONC 12:47
PROVIDERS: ATTEND Internal Medicine Hematology & Oncology
DX: C50.911 Malignant neoplasm of unspecified site of right female breast (principal); C64.1 Malignant neoplasm of right kidney, except renal pelvis; I10 Essential (primary) hypertension; E11.9 Type 2 diabetes mellitus without complications; I25.10 Atherosclerotic heart disease of native coronary artery without angina pectoris; J44.9 Chronic obstructive pulmonary disease, unspecified; M17.0 Bilateral primary osteoarthritis of knee; M51.25 Other intervertebral disc displacement, thoracolumbar region; M48.05 Spinal stenosis, thoracolumbar region; D64.9 Anemia, unspecified; E78.2 Mixed hyperlipidemia; Z79.02 Long term (current) use of antithrombotics/antiplatelets; Z87.891 Personal history of nicotine dependence; Z96.651 Presence of right artificial knee joint; Z92.3 Personal history of irradiation; Z90.11 Acquired absence of right breast and nipple
CPT/HCPCS: 80053; 85025; G0463; 99213